=== PATIENT | female | born 1935 | race Caucasian/White ===

== ENCOUNTER 2017-04-03 11:36 | Outpatient (RCR) | payer MEDICARE | END 2017-07-01 | disposition home or self-care (01) | LOC: LAB 11:36 | PROVIDERS: ATTEND Internal Medicine Gastroenterology | DX: K52.9 Noninfective gastroenteritis and colitis, unspecified (principal) | CPT/HCPCS: 36415; 82705; 87045; 87046; 87324; 87449; 89055 ==

== ENCOUNTER → 2019-06-25 | Outpatient (CLI) | payer MEDICARE ==
[~2019-06-25] MED LIST: CATHETER FLUSH 10 ML SYR IV PRN
--- NOTE | 2019-06-25 10:57 | Diagnostic Imaging Report ---
Indication: Chronic diarrhea Hepatobiliary scan 5.44 mCi of technetium 99m Choletec was given intravenously. 8 ounces of ensure was given orally 1 hour into the exam. There is homogeneous uptake of isotope throughout the liver. The cystic duct and common duct are both patent. Ejection fraction is calculated to be 58%. IMPRESSION: Normal hepatobiliary scan and gallbladder ejection. Dictated by: Dictated on workstation # [id number]
== END ==
LOC: CARD 08:11
PROVIDERS: ATTEND Family Medicine
DX: K52.9 Noninfective gastroenteritis and colitis, unspecified (principal)
CPT/HCPCS: 78227

== ENCOUNTER → 2020-07-14 | Outpatient (CLI) | payer MEDICAID, MEDICARE ==
--- NOTE | 2020-07-14 13:53 | Diagnostic Imaging Report ---
PROCEDURE: US carotid duplex, bilateral. TECHNIQUE: Multiple real-time grayscale images were obtained over the carotid arteries in various projections, bilaterally. Additional spectral analysis and color Doppler duplex images were also obtained. INDICATION: Carotid stenosis. FINDINGS: There is moderate calcified plaque in the carotid bulbs and bifurcations extending into the proximal internal and external carotid arteries. Velocities in the common carotid and internal carotid arteries are normal. There is some velocity elevation in the right external carotid artery reaching 198 cm/s. Both vertebral arteries show antegrade flow. IMPRESSION: Moderate calcified plaque. There is no evidence of a hemodynamically significant stenosis within the common carotid or internal carotid arteries. Parameters based on the consensus panel Schwab-Scale and Doppler ultrasound criteria published March 2003, Radiology, Volume 229. DOPPLER (peak systolic velocity M/S Right Left CCA .43 .72 ICA Proximal .75 1.2 ICA Mid .68 .60 ICA Distal .57 .77 RATIO 1.75 1.60 ECA 1.98 .74 VERT .61 .62 Dictated by: Dictated on workstation # [id number]
== END ==
LOC: RAD 10:14
PROVIDERS: ATTEND Family Medicine
DX: I65.23 Occlusion and stenosis of bilateral carotid arteries (principal)
CPT/HCPCS: 93880

== ENCOUNTER 2021-02-11 11:47 | Emergency (ER) | payer MEDICARE ==
[~2021-02-11] VITALS: Ht 167.7 cm; Wt 65.9 kg
--- NOTE | 2021-02-11 12:02 | ED General ---
General Stated Complaint: STROKE Source of Information: EMS Exam Limitations: No Limitations History of Present Illness Date Seen by Provider: Feb 11, 2021 Time Seen by Provider: 11:56 Initial Comments To ER with reports of stroke. She is brought by EMS. She was at [facility] visiting a friend when she bent over to pick something up at 11 AM and fell face first. She was unable to get up and upon getting up she is now flaccid on the entire right side. Timing/Duration: 1 Hour Allergies and Home Medications Allergies Coded Allergies: ciprofloxacin (Unverified Allergy, Unknown, 01/05/11) ciprofloxacin HCl (Unverified Allergy, Unknown, 01/05/11) Patient Home Medication List Home Medication List Reviewed: Yes Review of Systems Review of Systems Constitutional: see HPI, other (Unable to obtain as she is nonverbal) Physical Exam Vital Signs Vital Signs - First Documented 02/11/21 11:47 Temp 36.0 Pulse 63 Resp 18 B/P (MAP) 203/83 (123) Pulse Ox 95 O2 Delivery Room Air Capillary Refill : Height, Weight, BMI Height: '" Weight: lbs. oz. kg; BMI Method: General Appearance: No Apparent Distress, WD/WN, Thin, Other (Completely flaccid on the right side nonverbal does follow command when I tell her to squeeze my hand with her left hand she does so. When I tell her to move her left leg she does so.) Eyes: Bilateral Eye Normal Inspection, Bilateral Eye PERRL, Bilateral Eye Other (Eyes deviated to the left. The right eye does not blink in conjunction with the left eye) Neck: Full Range of Motion, Normal Inspection Respiratory: No Accessory Muscle Use, No Respiratory Distress Gastrointestinal: Normal Bowel Sounds, Non Tender, Soft Extremity: Normal Capillary Refill, Normal Inspection Neurologic/Psychiatric: Alert Skin: Normal Color, Warm/Dry Progress/Results/Core Measures Suspected Sepsis SIRS Temperature: Pulse: Respiratory Rate: Laboratory Tests 02/11/21 12:03: White Blood Count 7.8 Blood Pressure / Mean: Laboratory Tests 02/11/21 12:03: Creatinine 1.28, Platelet Count 210, Total Bilirubin 0.6 02/11/21 12:41: INR Comment 1.2 Results/Orders Lab Results Laboratory Tests Test 02/11/21 12:03 02/11/21 12:04 02/11/21 12:41 Range/Units White Blood Count 7.8 4.3-11.0 10^3/uL Red Blood Count 3.91 3.80-5.11 10^6/uL Hemoglobin 12.2 11.5-16.0 g/dL Hematocrit 35 35-52 % Mean Corpuscular Volume 90 80-99 fL Mean Corpuscular Hemoglobin 31 25-34 pg Mean Corpuscular Hemoglobin Concent 35 32-36 g/dL Red Cell Distribution Width 12.2 10.0-14.5 % Platelet Count 210 130-400 10^3/uL Mean Platelet Volume 10.6 9.0-12.2 fL Immature Granulocyte % (Auto) 0 % Neutrophils (%) (Auto) 55 42-75 % Lymphocytes (%) (Auto) 33 12-44 % Monocytes (%) (Auto) 9 0-12 % Eosinophils (%) (Auto) 3 0-10 % Basophils (%) (Auto) 0 0-10 % Neutrophils # (Auto) 4.3 1.8-7.8 10^3/uL Lymphocytes # (Auto) 2.6 1.0-4.0 10^3/uL Monocytes # (Auto) 0.7 0.0-1.0 10^3/uL Eosinophils # (Auto) 0.2 0.0-0.3 10^3/uL Basophils # (Auto) 0.0 0.0-0.1 10^3/uL Immature Granulocyte # (Auto) 0.0 0.0-0.1 10^3/uL Urine Color YELLOW Urine Clarity CLOUDY Urine pH 6.0 5-9 Urine Specific [place] 1.025 H 1.016-1.022 Urine Protein NEGATIVE NEGATIVE Urine Glucose (UA) NEGATIVE NEGATIVE Urine Ketones NEGATIVE NEGATIVE Urine Nitrite NEGATIVE NEGATIVE Urine Bilirubin NEGATIVE NEGATIVE Urine Urobilinogen 0.2 < = 1.0 MG/DL Urine Leukocyte Esterase NEGATIVE NEGATIVE Urine RBC (Auto) NEGATIVE NEGATIVE Urine RBC NONE /HPF Urine WBC NONE /HPF Urine Squamous Epithelial Cells RARE /HPF Urine Crystals NONE /LPF Urine Bacteria NEGATIVE /HPF Urine Casts PRESENT /LPF Urine Hyaline Casts 0-2 H /LPF Urine Mucus SMALL H /LPF Urine Culture Indicated NO Sodium Level 136 135-145 MMOL/L Potassium Level 3.7 3.6-5.0 MMOL/L Chloride Level 101 98-107 MMOL/L Carbon Dioxide Level 20 L 21-32 MMOL/L Anion Gap 15 H 5-14 MMOL/L Blood Urea Nitrogen 15 7-18 MG/DL Creatinine 1.28 0.60-1.30 MG/DL Estimat Glomerular Filtration Rate 40 BUN/Creatinine Ratio 12 Glucose Level 123 H 70-105 MG/DL Calcium Level 9.7 8.5-10.1 MG/DL Corrected Calcium 9.9 8.5-10.1 MG/DL Total Bilirubin 0.6 0.1-1.0 MG/DL Aspartate Amino Transf (AST/SGOT) 22 5-34 U/L Alanine Aminotransferase (ALT/SGPT) 13 0-55 U/L Alkaline Phosphatase 43 40-136 U/L Troponin I 0.028 <0.028 NG/ML Total Protein 7.0 6.4-8.2 GM/DL Albumin 3.8 3.2-4.5 GM/DL Glucometer 122 H 70-110 MG/DL Prothrombin Time 15.3 H 12.2-14.7 SEC INR Comment 1.2 0.8-1.4 Activated Partial Thromboplast Time 38 H 24-35 SEC D-Dimer 0.75 H 0.00-0.49 UG/ML My Orders Orders - CELIA XIONG APRN Cbc With Automated Diff (02/11/21 11:53) Protime With Inr (02/11/21 11:53) Partial Thromboplastin Time (02/11/21 11:53) Comprehensive Metabolic Panel (02/11/21 11:53) Fibrin Degradation Products (02/11/21 11:53) Troponin I (02/11/21 11:53) Ua Culture If Indicated (02/11/21 11:53) Chest 1 View, Ap/Pa Only (02/11/21 11:53) Catheter(Urinary) Insert & Ass 03,15 (02/11/21 11:53) Ekg Tracing (02/11/21 11:53) Nothing By Mouth (02/11/21 Lunch) Accucheck Stat ONCE (02/11/21 11:53) Ed Iv/Invasive Line Start (02/11/21 11:53) Ed Iv/Invasive Line Start (02/11/21 11:53) Vital Signs Stroke Patient Q15M (02/11/21 11:53) Ct Head Wo-R/O Stroke (02/11/21 11:53) O2 (02/11/21 11:53) Intake & Output 06,14,22 (02/11/21 11:53) Monitor-Rhythm Ecg Trace Only (02/11/21 11:53) Dysphagia Screening Tool (02/11/21 11:53) Post Thrombolytic Adminstratio (02/11/21 11:53) Lipid Panel (02/12/21 06:00) Ct Angio Head/Neck (02/11/21 11:53) Labetalol Injection (Normodyne Injection (02/11/21 12:30) Tenecteplase (Tnkase) (02/11/21 12:30) Post Thrombolytic Adminstratio (02/11/21 12:29) Lactated Ringers (Lr 1000 Ml Iv Solution (02/11/21 13:00) Iohexol Injection (Omnipaque 350 Mg/Ml 1 (02/11/21 13:30) Received Contrast (Hold Metformin- Contr (02/11/21 13:30) Sodium Chloride Flush (Catheter Flush Sy (02/11/21 13:30) Ns (Ivpb) (Sodium Chloride 0.9% Ivpb Bag (02/11/21 13:30) Medications Given in ED Current Medications Medications Dose Ordered Sig/Dennys Route Start Time Stop Time Status Last Admin Dose Admin Iohexol 100 ml ONCE ONCE IV 02/11/21 13:30 02/11/21 13:31 DC 02/11/21 13:21 85 ML Sodium Chloride 10 ml NEEDED PRN IV 02/11/21 13:30 02/11/21 13:21 10 ML Sodium Chloride 100 ml ONCE ONCE IV 02/11/21 13:30 02/11/21 13:31 DC 02/11/21 13:21 80 ML Tenecteplase STROKE 0.25mg/kg MAX d... ONCE ONCE IV 02/11/21 12:30 02/11/21 12:31 DC 02/11/21 12:47 50 MG Vital Signs/I&O 02/11/21 02/11/21 02/11/21 02/11/21 11:47 12:44 12:47 13:31 Temp 36.0 Pulse 63 57 57 63 Resp 18 18 18 B/P (MAP) 203/83 (123) 163/66 156/66 176/66 Pulse Ox 95 95 95 O2 Delivery Room Air Room Air Room Air Capillary Refill : Diagnostic Imaging Diagonstic Imaging: CT Comments NAME: [facility] REC#: [id number] PT STATUS: REG ER : 1935 PHYSICIAN: CELIA XIONG APRN ADMIT DATE: 02/11/21/ER Signed Date of Exam:02/11/21 CT HEAD WO-R/O STROKE EXAMINATION: CT head without contrast. TECHNIQUE: Multiple contiguous axial images were obtained through the brain without the use of intravenous contrast. All CT scans use one or more of the following dose optimizing techniques: automated exposure control, MA and/or KvP adjustment based on patient size and exam type or iterative reconstruction. HISTORY: Strokelike symptoms. Right-sided weakness. COMPARISON: 08/22/2011. FINDINGS: No large acute territorial ischemia, mass, or hemorrhage. No midline shift or mass effect. Decreased attenuation is seen in the periventricular and subcortical white matter. The ventricles and cortical sulci are prominent. The basilar cisterns are patent and unremarkable. The orbits are normal. Paranasal sinuses are normal. Mastoid air cells are clear. No soft tissue abnormality is seen. No osseus lesions or fractures are seen. IMPRESSION: 1. No large acute territorial ischemia, mass, or hemorrhage. If continued concern, consider MRI brain to further evaluate. 2. Chronic microvascular disease. 3. Generalized parenchymal volume loss. Dictated by: Dictated on workstation # [id number] Dict: 02/11/21 1208 Trans: 02/11/21 1218 [facility] [id number] Interpreted by: COLE MIRANDA DO Electronically signed by: COLE MIRANDA DO 02/11/21 1218 Departure Communication (Admissions) NAME: MARICARMEN [facility] REC#: [id number] PT STATUS: REG ER : 1935 PHYSICIAN: CELIA XIONG APRN ADMIT DATE: 02/11/21/ER Signed Date of Exam:02/11/21 CT HEAD WO-R/O STROKE EXAMINATION: CT head without contrast. TECHNIQUE: Multiple contiguous axial images were obtained through the brain without the use of intravenous contrast. All CT scans use one or more of the following dose optimizing techniques: automated exposure control, MA and/or KvP adjustment based on patient size and exam type or iterative reconstruction. HISTORY: Strokelike symptoms. Right-sided weakness. COMPARISON: 08/22/2011. FINDINGS: No large acute territorial ischemia, mass, or hemorrhage. No midline shift or mass effect. Decreased attenuation is seen in the periventricular and subcortical white matter. The ventricles and cortical sulci are prominent. The basilar cisterns are patent and unremarkable. The orbits are normal. Paranasal sinuses are normal. Mastoid air cells are clear. No soft tissue abnormality is seen. No osseus lesions or fractures are seen. IMPRESSION: 1. No large acute territorial ischemia, mass, or hemorrhage. If continued concern, consider MRI brain to further evaluate. 2. Chronic microvascular disease. 3. Generalized parenchymal volume loss. Dictated by: Dictated on workstation # [id number] Dict: 02/11/21 1208 Trans: 02/11/21 1218 [facility] [id number] Interpreted by: COLE MIRANDA DO Electronically signed by: COLE MIRANDA DO 02/11/21 1218 Family Conversation NAME: MARICARMEN [facility] REC#: [id number] PT STATUS: REG ER : 1935 PHYSICIAN: CELIA XIONG APRN ADMIT DATE: 02/11/21/ER Draft Date of Exam:02/11/21 CT ANGIO HEAD/NECK PROCEDURE: CT angiography of the head and CT angiography of the neck with and without contrast. TECHNIQUE: Contiguous noncontrast images were obtained from the skull base through the vertex. After intravenous contrast administration, helical CT angiography of the neck was performed. Source data was reformatted into 3D MIP projections. Delayed post contrast acquisition was also obtained. Auto Exposure Controls were utilized during the CT exam to meet ALARA standards for radiation dose reduction. INDICATION: Stroke alert. Right-sided weakness. COMPARISON: CT head performed earlier this same date. FINDINGS: CTA Neck: The visualized portions of the aortic arch demonstrate atherosclerotic plaque without evidence of aneurysm or dissection. There is conventional branching pattern of the great vessels of the aorta. The brachiocephalic artery is normal in course and caliber. The right and left common carotid origins are unremarkable. The origin of the left subclavian artery is patent. The common carotid arteries and internal carotid arteries demonstrate a tortuous course. There is calcified atherosclerotic plaque in the bilateral carotid bulbs and proximal internal carotid arteries without flow-limiting stenosis. No evidence of dissection in the carotid systems. The external carotid arteries are patent and unremarkable. The vertebral arteries are codominant. The origin of the right vertebral artery is seen and is unremarkable. The origin of the left vertebral artery is seen and is unremarkable. There is no focal stenosis seen within the neck. There is no dissection. The vertebral arteries are well visualized to up to the level of the basilar artery. The osseous structures of the cervical spine are unremarkable. Included views through the lung apices demonstrate no focal consolidation. CTA brain: Atherosclerotic plaque is seen in the sheppard of the bilateral terminal internal carotid arteries without significant stenosis. There is occlusion of a branch of the left MCA prior to the sylvian fissure (image 382, series 2). No stenosis is seen in the bilateral anterior and posterior cerebral arteries and right MCA. No evidence of aneurysm the [place]. In the posterior circulation, both of the vertebral arteries demonstrate normal opacification. The vertebral arteries are codominant. Both the right and left PICA arteries are identified. The basilar artery is normal in course and caliber. The terminal branch vessels including the superior cerebellar arteries unremarkable. IMPRESSION: 1. 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 2. The remainder the [place] is patent. 3. No stenosis or dissection the bilateral carotid and vertebral arteries. Findings were called to Celia Xiong APRN, at 1:30 PM on 02/11/[address] Cole Miranda. Dictated on workstation # [id number] Dict: 02/11/21 1323 Trans: 02/11/21 1337 [facility] [id number] Interpreted by: COLE MIRANDA DO Electronically signed by: [id number]-blood pressure is down to 158/66 without intervention heart rate 52 sinus. Respiratory rate is 21 and O2 96%. I spoke with Dr. Solares from [facility] who agrees with initiating TPA, will give tenecteplase 0.25 mg/kg which equals 16 mg or 3.2 mL. We will proceed with CT angio head and neck. Patient's clinical exam remains unchanged. I did notify her son-in-law Kal Gonzalez ([phone]) who is [employer] here, currently he is in [place] and will await update. 1346-spoke with Dr. Solares again, this occlusion may be amenable to IR guided retrieval. Will fly the patient to [facility]. Cora to arrive here at 1415 for transport. 1405*-NIH down to 9. SHe answers and speaks yes or no questions. Impression Primary Impression: Large vessel stroke Disposition: XFER SHT-TRM HOSP Condition: Stable Transfer Transfer Reason: Exceeds level of care Time Spoke to Accepting Phy: 13:51 Departure-Patient Inst. Referrals: JAH MORGAN MD (PCP/Family) Primary Care Physician NIH Stroke Scale NIH Stroke Scale NIH #1: Select: Initial Level of Consciousness: 0=Alert Level of Consciousness-Questio: 2=Answer neither question LOC Commands: 0=Performs both tasks Gaze: 2=Forced Deviation Best Language: 3=Mute Dysarthria: 2=Severe dysarthria Extinction & Inattention: 2=ProfoundHemiInattention NIH Stroke Scale Score: 22 NIH #2: Select: Post CT Level of Consciousness: 0=Alert Level of Consciousness-Questio: 0=Answers both month/age LOC Commands: 0=Performs both tasks Gaze: 0=Normal Visual Ramos: 0=No visual loss Facial Movement (Facial Paresi: 0=Normal symmetrical mnt Motor Function-Arms Right: 2=Some effort/gravity Motor Function-Arms Left: 0=No drift Motor Function-Legs Right: 2=Some effort/gravity Motor Function-Legs Left: 0=No drift Limb Ataxia: 2=Present in two limbs Sensory: 1=Mild to Moderate loss Best Language: 1=Mild to moderat aphasia Dysarthria: 1=Mild to moderate loss Extinction & Inattention: 0=No abnormality NIH Stroke Scale Score: 9 CELIA XIONG APRN Feb 11, 2021 12:02
--- NOTE | 2021-02-11 12:17 | Diagnostic Imaging Report ---
EXAMINATION: Chest 1 view HISTORY: Weakness. Concern for stroke. COMPARISON: None available. FINDINGS: The lung volumes are normal. No focal consolidation is seen. No large pleural effusion or pneumothorax is seen. The cardiomediastinal silhouette is normal in size and contour. There is calcified aortic atherosclerotic plaque. No acute osseous abnormality is seen. IMPRESSION: 1. No acute pleuroparenchymal process. Dictated by: Dictated on workstation # [id number]
--- NOTE | 2021-02-11 12:17 | Diagnostic Imaging Report ---
EXAMINATION: CT head without contrast. TECHNIQUE: Multiple contiguous axial images were obtained through the brain without the use of intravenous contrast. All CT scans use one or more of the following dose optimizing techniques: automated exposure control, MA and/or KvP adjustment based on patient size and exam type or iterative reconstruction. HISTORY: Strokelike symptoms. Right-sided weakness. COMPARISON: 08/22/2011. FINDINGS: No large acute territorial ischemia, mass, or hemorrhage. No midline shift or mass effect. Decreased attenuation is seen in the periventricular and subcortical white matter. The ventricles and cortical sulci are prominent. The basilar cisterns are patent and unremarkable. The orbits are normal. Paranasal sinuses are normal. Mastoid air cells are clear. No soft tissue abnormality is seen. No osseus lesions or fractures are seen. IMPRESSION: 1. No large acute territorial ischemia, mass, or hemorrhage. If continued concern, consider MRI brain to further evaluate. 2. Chronic microvascular disease. 3. Generalized parenchymal volume loss. Dictated by: Dictated on workstation # [id number]
[2021-02-11 12:25] LABS: BASOPHILS % (AUTO) 0 % (0-10); EOSINOPHILS # (AUTO) 0.2 10^3/uL (0.0-0.3); EOSINOPHILS % (AUTO) 3 % (0-10); HEMATOCRIT 35 % (35-52); HEMOGLOBIN 12.2 g/dL (11.5-16.0); LYMPHOCYTES # (AUTO) 2.6 10^3/uL (1.0-4.0); LYMPHOCYTES % (AUTO) 33 % (12-44); MEAN CORPUSCULAR HEMOGLOBIN 31 pg (25-34); MEAN CORPUSCULAR HGB CONC 35 g/dL (32-36); MEAN CORPUSCULAR VOLUME 90 fL (80-99); MEAN PLATELET VOLUME 10.6 fL (9.0-12.2); MONOCYTES # (AUTO) 0.7 10^3/uL (0.0-1.0); MONOCYTES % (AUTO) 9 % (0-12); NEUTROPHILS # (AUTO) 4.3 10^3/uL (1.8-7.8); NEUTROPHILS % (AUTO) 55 % (42-75); PLATELET COUNT 210 10^3/uL (130-400); WHITE BLOOD COUNT 7.8 10^3/uL (4.3-11.0)
[2021-02-11 12:26] LABS: BILIRUBIN,URINE NEGATIVE (NEGATIVE); CLARITY,URINE CLOUDY; COLOR,URINE YELLOW; GLUCOSE, URINE (UA) NEGATIVE (NEGATIVE); KETONES,URINE NEGATIVE (NEGATIVE); LEUKOCYTE ESTERASE ,URINE NEGATIVE (NEGATIVE); NITRITE,URINE NEGATIVE (NEGATIVE); PROTEIN,URINE NEGATIVE (NEGATIVE)
[2021-02-11] MEDS ORDERED: LABETALOL HCL 20 MG/4 ML VIAL IV ONE (12:30)
[2021-02-11] MEDS ORDERED: TENECTEPLASE 50 MG VIAL IV ONE (12:30)
[2021-02-11 12:33] LABS: BACTERIA,URINE NEGATIVE /HPF; HYALINE CASTS, URINE 0-2 /LPF; SQUAMOUS EPITHELIAL CELL,UR RARE /HPF
[2021-02-11 12:40] LABS: ALBUMIN 3.8 GM/DL (3.2-4.5)
[2021-02-11 12:41] LABS: POTASSIUM 3.7 MMOL/L (3.6-5.0)
[2021-02-11 12:42] LABS: CALCIUM 9.7 MG/DL (8.5-10.1)
[2021-02-11 12:45] LABS: BILIRUBIN,TOTAL 0.6 MG/DL (0.1-1.0)
[2021-02-11 12:46] LABS: CREATININE SERUM 1.28 MG/DL (0.60-1.30)
[2021-02-11] MEDS ORDERED: LACTATED RINGERS 1,000 ML IV SCH (13:00)
[2021-02-11 13:08] LABS: FIBRIN DEGRADATION PRODUCTS 0.75 UG/ML (0.00-0.49); INR 1.2 (0.8-1.4); PROTHROMBIN TIME PATIENT 15.3 SEC (12.2-14.7)
[2021-02-11] MEDS ORDERED: HOLD METFORMIN - RECEIVED CONTRAST 20 ML VIAL IV SCH (13:30)
[2021-02-11] MEDS ORDERED: NS 100 ML (IVPB) BAG IV ONE (13:30)
[2021-02-11] MEDS ORDERED: IOHEXOL 350 MG/ML 100 ML (OMNIPAQUE 350) VIAL IV ONE (13:30)
[2021-02-11] MEDS ORDERED: CATHETER FLUSH 10 ML SYR IV PRN (13:30)
--- NOTE | 2021-02-11 13:38 | Diagnostic Imaging Report ---
PROCEDURE: CT angiography of the head and CT angiography of the neck with and without contrast. TECHNIQUE: Contiguous noncontrast images were obtained from the skull base through the vertex. After intravenous contrast administration, helical CT angiography of the neck was performed. Source data was reformatted into 3D MIP projections. Delayed post contrast acquisition was also obtained. Auto Exposure Controls were utilized during the CT exam to meet ALARA standards for radiation dose reduction. INDICATION: Stroke alert. Right-sided weakness. COMPARISON: CT head performed earlier this same date. FINDINGS: CTA Neck: The visualized portions of the aortic arch demonstrate atherosclerotic plaque without evidence of aneurysm or dissection. There is conventional branching pattern of the great vessels of the aorta. The brachiocephalic artery is normal in course and caliber. The right and left common carotid origins are unremarkable. The origin of the left subclavian artery is patent. The common carotid arteries and internal carotid arteries demonstrate a tortuous course. There is calcified atherosclerotic plaque in the bilateral carotid bulbs and proximal internal carotid arteries without flow-limiting stenosis. No evidence of dissection in the carotid systems. The external carotid arteries are patent and unremarkable. The vertebral arteries are codominant. The origin of the right vertebral artery is seen and is unremarkable. The origin of the left vertebral artery is seen and is unremarkable. There is no focal stenosis seen within the neck. There is no dissection. The vertebral arteries are well visualized to up to the level of the basilar artery. The osseous structures of the cervical spine are unremarkable. Included views through the lung apices demonstrate no focal consolidation. CTA brain: Atherosclerotic plaque is seen in the sheppard of the bilateral terminal internal carotid arteries without significant stenosis. There is occlusion of a branch of the left MCA prior to the sylvian fissure (image 382, series 2). No stenosis is seen in the bilateral anterior and posterior cerebral arteries and right MCA. No evidence of aneurysm the [place]. In the posterior circulation, both of the vertebral arteries demonstrate normal opacification. The vertebral arteries are codominant. Both the right and left PICA arteries are identified. The basilar artery is normal in course and caliber. The terminal branch vessels including the superior cerebellar arteries unremarkable. IMPRESSION: 1. 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 2. The remainder the [place] is patent. 3. No stenosis or dissection the bilateral carotid and vertebral arteries. Findings were called to Claude Xiong APRN, at 1:30 PM on 02/11/[address] Cole Miranda. Dictated by: Dictated on workstation # [id number]
[2021-02-11 14:53] VITALS: BP 170/89
== END 2021-02-11 14:53 | disposition short-term general hospital (02) ==
LOC: EDUNIT# 11:47 → ER 11:49
DX: I63.9 Cerebral infarction, unspecified (principal)
CPT/HCPCS: 36415; 51702; 70450; 70496; 70498; 71045; 80053; 81000; 82947; 84484; 85025; 85379; 85610; 85730; 93005; 93041

== ENCOUNTER 2021-02-16 14:15 | Inpatient (IN) | payer MEDICARE ==
[~2021-02-16] VITALS: Ht 171.5 cm; Wt 61.4 kg
[~2021-02-16 14:15] MED LIST changes: +ACETAMINOPHEN 500 MG TAB (TYLENOL) PO PRN; +ALPRAZolam 0.25 MG (XANAX) TAB PO PRN; +ASCO-262 PO; +ASPI-999 PO; +ATOR40TA70 PO; +BENA40TA5 PO; +BISACODYL 10 MG SUPP (DULCOLAX) PR PRN; +CALCIUM CARBONATE 500 MG (TUMS) TAB.CHEW PO PRN; +CARV12.53 PO; -CATHETER FLUSH 10 ML SYR IV PRN; +CHOL100048 PO; +CLOP75TA28 PO; +DOCUSATE SODIUM 100 MG (COLACE) CAP PO PRN; +FLEET ENEMA ADULT 1 EA BTL PR PRN; +HYDR25TA4 PO; +LACTULOSE SYRUP 10GM/15ML (ENULOSE) 30ML UDC PO PRN; +LOPE2CAP PO; +LOPERAMIDE 2 MG (IMODIUM) TABLET PO PRN; +MELA5TAB14 PO; +MELATONIN 3 MG TABLET PO PRN; +MULT-1136 PO; +ONDANSETRON 4 MG (ZOFRAN) ORAL DISSOLVE TAB PO PRN; +POTA-51 PO; +diphenhydrAMINE 25 MG TAB (BENADRYL) PO PRN; +guaiFENesin/CODEINE (ROBITUSSIN AC) 10ML UDC PO PRN
--- NOTE | 2021-02-16 15:10 | Occupational Therapy Eval ---
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 R side weakness and sensory loss. 02/16 transfer to [facility] for continued medication management and skilled therapies. Social History Home: Apartment ([facility]) Current Living Status: Alone Entry Into Home: Level Entry ADL-Prior Level of Function SCALE: Activities may be completed with or without assistive devices. 5-Rarwbbwvry-ngmejew completes the activity by him/herself with no assistance from a helper. 5-Set-up or Clean-up Assistance-helper sets up or cleans up; patient completes activity. [place] assists only prior to or following the activity. 4-Supervision or Touching Assistance-helper provides verbal cues and/or touching/steadying and/or contact guard assistance as patient completes activity. Assistance may be provided throughout the activity or intermittently. 3-Partial/Moderate Assistance-helper does LESS THAN HALF the effort. [place] lifts, holds or supports trunk or limbs, but provides less than half the effort. 2-Substantial/Maximal Assistance-helper does MORE THAN HALF the effort. [place] lifts or holds trunk or limbs and provides more than half the effort. 8-Lnuoftfml-gzqjsb does ALL the effort. Patient does none of the effort to complete the activity. Or, the assistance of 2 or more helpers is required for the patient to complete the activity. If activity was not attempted, code reason: 7-Patient Refused. 9-Not Applicable-not attempted and the patient did not perform the activity before the current illness, exacerbation or injury. 10-Not Attempted due to Environmental Limitations-(lack of equipment, weather restraints, etc.). 88-Not Attempted due to Medical Conditions or Safety Concerns. ADL PLOF Comments Pt reports IND with ADLs and functional mobility at PLOF, no AD/AE. She has a 4WW and cane. Pt and family member indicate they would like to change the tub/shower unit out for a walk in shower, but would need a letter from physician. Self Care: Independent Functional Cognition: Independent DME/Equipment: Tub/Shower DME/Equipment Comments owns 4WW and cane OT Current Status Subjective Pt agreeable to OT evaluation, but states she is tired. Pt denies pain Mental Status/Objective Patient Orientation: Person, Place, Time, Situation Current Glasses/Contacts: Yes Hand Dominance: Right Upper Extremity ROM Grossly WFL, BUE shoulder flexion to approx 120 degrees. Upper Extremity Coordination slightly diminished R hand. Upper Extremity Sensation WFL, pt reports intact light touch sensation BUEs. Upper Extremity Strength LUE grossly 4-/5, RUE grossly 3/5. Gross grasp fairly equal ADL-Treatment Eating (QC): 6 (Per pt report, able to open containers and use utensils to eat.) Oral Hygiene (QC): 7 Shower/Bathe Self (QC): 7 Upper Body Dressing (QC): 7 Lower Body Dressing (QC): 7 On/Off Footwear (QC): 7 Toileting Hygiene (QC): 4 (CGA in stand. Pt able to manage clothing and hygiene.) Other Treatments OT evaluation complete. PT/OT cotreat due to skill of 2 clinicians required which a cardiac rehab nurse could not perform in order to coordinate UE/LEs, decrease fall risk, focus on higher level balance tasks, and due to pt's limitation in strength, activity tolerance, mobility, and transfers. OT focused on UE placement, cues for sequencing and safety and ADLs. PT focused on LE placement, gross overall movements. and transfers/mobility. Pt performed functional transfers/mobility utilizing FWW, in/out car simulation, bed mobility, supine to/from sit, sit to/from stand, uneven surface and step. Please refer to PT notes for QC scores associated with mobility/transfers. Pt taken into therapy gym, sat EOM. Pt participated in standing balloon activity, batting balloon back and forth with OT as PT assisted with balance as needed. Pt completed with R hand and L hand in standing. She took a seated rest break between trials. She then sat EOB and caught/tossed balloon with bilateral UEs to focus on dynamic sitting balance. Pt used FWW to return to her room. Pt completed toileting, states she has some irritable bowel, requesting to stay on toilet. Pt left with pull cord in hand, nursing aware, all needs met. Education OT Patient Education: Correct positioning, Energy conservation, Modified ADL techniques, Progress toward Goal/Update tx plan, Purpose of tx/functional activities, Rehab process Teaching Recipient: Patient Teaching Methods: Discussion Response to Teaching: Verbalize Understanding OT Short Term Goals Short Term Goals Time Frame: Mar 01, 2021 Toileting hygiene: 45 Shower/bathe self: 4 Upper body dressin Lower body dressin Putting on/taking off footwear: 4 OT Maintenance Associate Goals Nursing Home Goals Time Frame: Mar 10, 2021 Eating (QC): 6 Oral Hygiene (QC): 6 Toileting Hygiene (QC): 6 Shower/Bathe Self (QC): 6 Upper Body Dressing (QC): 6 Lower Body Dressing (QC): 6 On/Off Footwear (QC): 6 Additional Goals: 1-Demonstrate ADL Tasks, 2-Verbalize Understanding, 3- ImproveStrength/Bull 1=Demonstrate adherence to instructed precautions during ADL tasks. 2=Patient will verbalize/demonstrate understanding of assistive devices/modifications for ADL. 3=Patient will improve strength/tolerance for activity to enable patient to perform ADL's. OT Education/Plan Problem List/Assessment Assessment: Decreased Activ Tolerance, Decreased UE Strength, Impaired Coordination, Impaired Funct Balance, Impaired I ADL's, Impaired Self-Care Skills Discharge Recommendations Plan/Recommendations: Continue POC Comment Pt and family member indicate they would like to change the tub/shower unit out for a walk in shower, but would need a letter from physician. Treatment Plan/Plan of Care Patient would benefit from OT for education, treatment and training to promote independence in ADL's, mobility, safety and/or upper extremity function for ADL's. Plan of Care: ADL Retraining, Functional Mobility, Group Exercise/Act as Ind, UE Funct Exercise/Act Treatment Duration: Mar 10, 2021 Frequency: At least 5 of 7 days/Wk (IRF) Estimated Hrs Per Day: 1.5 hours per day Agreement: Yes Rehab Potential: Fair Time/GCodes Start Time: 14:15 Stop Time: 15:55 Total Time Billed (hr/min): 90 Billed Treatment Time 7997-5013 OT eval, [id number] PT eval (not billed), [id number] OT/PT cotreat 1, EVM (10'), ADL (15'), FA 4 (65') MAGDIEL GREER OT Feb 16, 2021 15:09
[2021-02-16] MEDS ORDERED: ACETAMINOPHEN 325 MG TABLET PO PRN (15:30)
--- NOTE | 2021-02-16 16:07 | Progress Note ---
EDOUARD EASON 02/16/21 1607: Progress Note CC: Debility post-CVA HPI: 85 yo female with recent CVA presents to the rehab floor after stabilization at . Pt was brought to the [place] ER on 02/11 by EMS. She had been visiting a friend when she bent over to pick something up at 11am and fell face first. She was unable to get up and became flaccid on her entire R side. Pt was given tPA and was airlifted to . assessed the pt and recommended conservative treatment with medication. She now presents to the rehab floor for recuperation and therapy. PT reports dizzy spells while performing exercises. BP was then taken (157/67) which returned to 121/59 with rest. PMH: IBS, HTN PSH: rotator cuff surgery (4 years ago), hysterectomy, 2 deliveries ALL: ciprofloxacin, ciprofloxacin HCl Meds: Item Value Date Time Cholecalciferol 25 mcg 02/17/21 0900 (Vitamin D3 DAILY/PO Capsule/Tablet) Lisinopril 40 mg 02/17/21 0900 (Zestril Tablet) DAILY/PO Hydrochlorothiazide 50 mg 02/17/21 0900 (HCTZ Capsule/ DAILY/PO Tablet) Clopidogrel 75 mg 02/17/21 0900 Bisulfate DAILY/PO (Plavix Tablet) Aspirin 81 mg 02/17/21 0900 (Baby Aspirin DAILY/PO Chewable Tablet) Ascorbic Acid 500 mg 02/17/21 0800 (Vitamin C DAILY@0800/PO Tablet) Potassium Chloride 20 meq 02/17/21 0700 (K Dur Tablet) DAILY@0700/PO Multivitamins/ 1 ea 02/17/21 0700 Minerals DAILY@0700/PO Therapeutic (Vitamins, Multi w/Minerals Tablet) Melatonin 5 mg 02/16/21 2100 (Melatonin HS/PO Tablet) Carvedilol 25 mg 02/16/21 2100 (Coreg Tablet) BID/PO Atorvastatin 40 mg 02/16/21 2100 Calcium HS/PO (Lipitor Tablet) Senna 1 ea 02/16/21 2100 (Senokot S BID/PO Tablet) Polyethylene 17 gm 02/16/21 2100 Glycol BID/PO (Miralax 17 Gm Packet) Docusate Sodium 100 mg 02/16/21 2100 (Colace Capsule) BID/PO Acetaminophen 650 mg 02/16/21 1530 (Tylenol Tablet) Q4H PRN/PO Loperamide HCl 2-4mg 02/16/21 1200 (Imodium Tablet) Q6H PRN/PO Ondansetron HCl 4 mg 02/16/21 1030 (Zofran Oral Q6H PRN/PO Dissolve Tablet) Guaifenesin/ 10 ml 02/16/21 1030 Codeine Phosphate Q4H PRN/PO (Robitussin Ac (Codeine) Syrup) Sodium 1 ea 02/16/21 1030 Biphosphate/ BID PRN/AK Sodium Phosphate (Fleet Enema Adult) Lactulose 10 gm 02/16/21 1030 (Enulose Oral BID PRN/PO Solution) Bisacodyl 10 mg 02/16/21 1030 (Dulcolax DAILY PRN/AK Suppository) Docusate Sodium 100 mg 02/16/21 1030 (Colace Capsule) BID PRN/PO Diphenhydramine 25 mg 02/16/21 1030 HCl Q6H PRN/PO (Benadryl Tablet) Calcium Carbonate 500 mg 02/16/21 1030 (Antacid TID PRN/PO Chewable Tablet) Alprazolam 0.25 mg 02/16/21 1030 (Xanax Tablet) Q8H PRN/PO SH: No EtOH, No tobacco use, no recreational drug use, lives at [facility], lhyovvco-nw-ali very involved, son that lives in [place], son-in-law OBGYN at [facility]: mom- stroke at 58 (refused bp meds), dad- alcoholic cirrhosis (65), daughter from breast cancer at 36 ROS: Heart- no chest pain or palp; Lungs- no SOB; tired; does not feel feverish; Diarrhea (related to IBS) Exam: Heart- RRR, Lungs- CTAB, Post Tibial pulse intact bilat, Cap refill >2 sec, Eyes- EOM intact Images: CT Angio Head/Neck 02/11 Impressions: 1. 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 2. The remainder the [place] is patent. 3. No stenosis or dissection the bilateral carotid and vertebral arteries. Labs: No new labs as of 02/16 at 4:12pm Assessment: Debility following CVA of left MCA Dizziness HTN IBS Plan: PT/OT 1.5 hours/day for 5 days/week Monitor dizziness, assess fall risk Continue Plavix and ASA for anticoag Continue HCTZ, Lisinopril, Carvedilol for BP management Continue Atorvastatin for HLD management Continue medical management of IBS diarrhea as needed Requests form from Dr. Garcia to get a walk-in shower at [facility] NABILA GARCIA DO 02/16/212048: Supervisory-Addendum Brief Verification & Attestation Participated in pt care: history, MDM, physical Personally performed: exam, history, MDM, supervision of care Care discussed with: Medical Student Procedures: n/a Results interpretation: Verified all documentation Verification and Attestation of Medical Student E/M Service A medical student performed and documented this service in my presence. I review ed and verified all information documented by the medical student and made modifications to such information, when appropriate. I personally performed the physical exam and medical decision making. Nabila Garcia Feb 16, 2021,20:49 EDOUARD EASON Feb 16, 2021 16:07 NABILA GARCIA DO Feb 16, 2021 20:49
--- NOTE | 2021-02-16 16:14 | Physical Therapy Evaluation ---
PT Evaluation-General Medical Diagnosis Admission Date Feb 16, 2021 at 14:15 Medical Diagnosis: CVA Onset Date: Feb 11, 2021 Therapy Diagnosis Therapy Diagnosis: impaired mobility, strength, endurance Referral Physician: Nabila Garcia DO Reason for Referral: Evaluation/Treatment Medical History Additional Medical History bilateral carotid stenosis, CKD III, depression, dyslipidemia, HTN, diarrhea, basal cell carcinoma with excision, hypokalemia Social History Home: Apartment ([place] Current Living Status: Alone Entry Into Home: Level Entry Prior Prior Level of Function SCALE: Activities may be completed with or without assistive devices. 5-Slxpbbdsfz-tjogptt completes the activity by him/herself with no assistance from a helper. 5-Set-up or Clean-up Assistance-helper sets up or cleans up; patient completes activity. [place] assists only prior to or following the activity. 4-Supervision or Touching Assistance-helper provides verbal cues and/or touching/steadying and/or contact guard assistance as patient completes activity. Assistance may be provided throughout the activity or intermittently. 3-Partial/Moderate Assistance-helper does LESS THAN HALF the effort. [place] lifts, holds or supports trunk or limbs, but provides less than half the effort. 2-Substantial/Maximal Assistance-helper does MORE THAN HALF the effort. [place] lifts or holds trunk or limbs and provides more than half the effort. 7-Etnesfjlr-dxenfv does ALL the effort. Patient does none of the effort to complete the activity. Or, the assistance of 2 or more helpers is required for the patient to complete the activity. If activity was not attempted, code reason: 7-Patient Refused. 9-Not Applicable-not attempted and the patient did not perform the activity before the current illness, exacerbation or injury. 10-Not Attempted due to Environmental Limitations-(lack of equipment, weather restraints, etc.). 88-Not Attempted due to Medical Conditions or Safety Concerns. Bed Mobility: 6 Transfers (B,C,W/C): 6 Gait: 6 Indoor Mobility (Ambulation): Independent PT Evaluation-Current Subjective Patient in recliner pre tx, agrees to PT, has no complaints of pain. Will be co-treating with OT due to poor patient mobility, strength, endurance, coordinate UE and LE during activity, safety and reduce risk of falls. Pt/Family Goals to be independent at home Objective Patient Orientation: Person, Place, Situation ROM/Strength ROM Lower Extremities WNL Strength Lower Extremities LLE (hip flexion 4/5, knee flexion 4/5, knee extension 4/5, dorsiflexion 4+/5), RLE (hip flexion 3+/5, knee flexion 3/5, knee extension 3+/5, dorsiflexion 4+/5) Neuromuscular (Tone, Coordination, Reflexes) Patient has good peripheral vision and tracking Sensory Vision: Wears Glasses Hearing: Functional Hand Dominance: Right Sensation Right Lower Extremit: Intact Sensation Left Lower Extremity: Intact Transfers Roll Left & Right (QC): 6 Sit to Lying (QC): 6 Lying to Sitting/Side of Bed(Q: 6 Sit to Stand (QC): 4 Chair/Kcq-qj-Egbty Xfer(QC): 4 Toilet Transfer (QC): 4 Car Transfer (QC): 3 Patient performs bed mobility and supine <-> sit with independence, sit <-> stand and transfers CGA, car transfer min assist. Patient has some difficulty with supine to sit but can do it without assist. Cues for hand placement. Gait Does the Patient Walk?: Yes Mode of Locomotion: Walk Anticipated Mode of Locomotion: Walk Walk 10 feet (QC): 4 Walk 50 ft with 2 Turns(QC): 4 Walk 150 ft (QC): 88 Walking 10ft/uneven surface-QC: 4 Distance: 120', 20'x2 Gait Assistive Device: FWW Comments/Gait Description Patient can ambulate 120' with a rolling walker with CGA (including 50' with at least 2 turns of 90 degrees and 10' over an uneven surface). Patient ambulates very slowly and has some slight unsteadiness but no LOB. Wheelchair Training Does the Pt Use a Wheelchair?: Yes Distance: 120' Wheel 50 ft with 2 turns (QC): 4 Wheel 150 ft (QC): 88 Type of Wheelchair: Manual Stairs #of Steps: 1 1 Step (curb) (QC): 4 4 Steps (QC): 88 12 Steps (QC): 88 Walking Assistive Device: Walker Balance Sitting Static: Normal Sitting Dynamic: Normal Standing Static: Fair Standing Dynamic: Fair Picking up an Object (QC): 4 Treatment Balance and endurance activity hitting balloon in sitting and standing. PT performed bed mobility and transfer training, balance and safety during balloon activity, OT performed UE positioning and safety during activity, balloon activity. Assessment/Needs Patient in bed post tx with nurse call, phone, tray, all needs met. Patient has impaired mobility, strength, endurance. Patient CGA for transfers and ambulation. She did have an episode during the balloon activity where she needed to sit and rest and then not long after states she needs to lay down, she lays down on the therapy table, states she is a little nauseated and tired, her BP is 157/67, after a few minutes she sits back up and her BP is 121/59 and she feels better. Rehab Potential: Fair PT Short Term Goals Short Term Goals Time Frame: Feb 23, 2021 Roll Left & Right: 6 Sit to lyin Lying to sitting on side of be: 6 Sit to stand: 4 (SBA) Chair/ysz-to-zmgsn transfer: 4 (SBA) Walk 10 feet: 4 (SBA) Walk 50 feet with two turns: 4 (SBA) PT Halfway Goals Halfway Goals PT Account Representative Goals Time Frame: Mar 09, 2021 Roll Left & Right (QC): 6 Sit to Lying (QC): 6 Lying-Sitting on Side/Bed(QC): 6 Sit to Stand (QC): 6 Chair/Vhv-qk-Htfut Xfer(QC): 6 Toilet Transfer (QC): 6 Car Transfer (QC): 5 Does the Patient Walk: Yes Walk 10 feet (QC): 6 Walk 50ft with 2 Turns (QC): 6 Walk 150 ft (QC): 6 Walking 10ft on Uneven Surface: 6 1 Step (curb) (QC): 4 4 Steps (QC): 4 12 Steps (QC): 88 Picking up an Object (QC): 4 Wheel 50 feet with 2 turns (QC: 9 Wheel 150 feet: 9 PT Plan Problem List Problem List: Activity Tolerance, Functional Strength, Safety, Balance, Gait, Transfer, Bed Mobility, ROM Treatment/Plan Treatment Plan: Continue Plan of Care Treatment Plan: Bed Mobility, Education, Functional Activity Bull, Functional Strength, Group Therapy, Gait, Safety, Therapeutic Exercise, Transfers Treatment Duration: Mar 09, 2021 Frequency: At least 5 of 7 days/Wk (IRF) Estimated Hrs Per Day: 1.5 hours per day Patient and/or Family Agrees t: Yes Safety Risks/Education Patient Education: Gait Training, Transfer Techniques, Steps, Correct Positioning, W/C Management, Safety Issues Teaching Recipient: Patient Teaching Methods: Demonstration, Discussion Response to Teaching: Reinforcement Needed Discharge Recommendations Plan Patient will perform bed mobility and transfer training, balance and endurance training, functional strengthening, stair training, gait training, and education, to improve functional mobility and independence at home Therapy Discharge Recommendati: Scheduled Assistance, Home & Family, Post Acute PT Time/GCodes Time In: 1425 Time Out: 1555 Total Billed Treatment Time: 90 Total Billed Treatment 1 visit EVM 10' EX 15' FA 65' PT eval from [id number], co-treat from [id number] CHARLY MCKEON PT Feb 16, 2021 16:14
[2021-02-16 20:00] VITALS: BP 144/67
[2021-02-16] MEDS: polyethylene glycoL POWDER 17 GM (MIRALAX) PACK PO SCH (20:02)
[2021-02-16] MEDS: DOCUSATE SODIUM 100 MG (COLACE) CAP PO SCH (20:02)
[2021-02-16] MEDS: SENNA W/DOCUSATE (SENOKOT S) TABLET PO SCH (20:03)
--- NOTE | 2021-02-16 20:23 | PM&R Post Admission Assessment ---
PM&R HP Date of Visit: Feb 16, 2021 Time of Visit: 18:00 History of Present Illness Chief complaint: CVA History of present illness: This is an 85-year-old white female clinic patient of Dr. Little who has a past medical history of irritable bowel syndrome, hypertension, hyperlipidemia and chronic kidney disease who presents to inpatient rehab from after sustaining a CVA. She sustained a fall at home brought to the ER found to have large vessel thrombus causing CVA and she was flown to after given TPA. MRI showed left acute infarct of the internal capsule. She has deficits of right side especially upper extremity. She will receive aggressive therapy in order to return back home at [facility] in order to regain independent function. Neuro note: Ms. Fried today is stable, foot numbness is resolved. Exam: alert and oriented, normal speech. Gaze intact, visual graves intact. Face symmetrical. RUE 4+/5, RLE 5-/5, L side intact. Intact to touch. No dysmetria. CTA neck with L ICA 60% stenosis however diagnostic angiogram showing only pl aque with no significant stenosis MRI brain with small acute infarct in L external and internal capsule LDL 118, A1c 5.9, TTE EF 75%, no shunt/thrombus Etiology of stroke possibly large vessel disease however without significant stenosis on L ICA per formal angiogram; can also consider ESUS as etiology. Although stroke size small on MRI, there was previously a L M2 occlusion that was recanalized post IV tPA. - continue ASA/Plavix X 90 days then ASA alone, Lipitor - continue Coreg, HCTZ increase today, Lisinopril for BP control - appreciate NSGY and neuroIR consults; no intervention needed - Holter monitor as outpt - Loperamide prn diarrhea, chronic - d/c to inpt rehab today Luis Alberto Gómez MD Theresa Fried Admission Date: 02/11/2021 LOS: 5 days Assessment/Plan: Principal Problem: Acute ischemic left MCA stroke (HCC) Active Problems: Essential hypertension Dyslipidemia Carotid stenosis, bilateral CKD (chronic kidney disease), stage III (HCC) Hypokalemia Hyponatremia Facial droop Right hemiparesis (HCC) Tissue plasminogen activator (tPA) administered at other facility within 24 hours before current admission Anemia Ms Fried is a 85F with a PMH of HTN, HLD, IBS, CKDIII, and depression who was admitted from an OSH with L M2 occlusion s/p tenecteplase. She was monitored in the ICU and transferred to the stroke team on 02/12/21. L M2 occlusion s/p IV tenecteplase with recanalization -Acute of R hemiparesis, aphasia at OSH -s/p IV tenecteplase -NIHSS on arrival 6 -CT H 02/11/21 -> negative for acute process -CTA H/N @ OSH 02/11/21 -> L M2 occlusion -CTA H/N 02/11/21 -> recanalization of L M2, calcified athero at prox ICA bilaterally with L ICA stenosis of approx 60%, mild to mod luminal irregularity at L M2 -MRI brain WO 02/11/21 -> small acute infarcts at posterior L internal and external capsules, chronic lacunar infarct at R genu of corpus callosum -Arteriogram 02/14 -> mod athero at L carotid bifurcation without significant stenosis, mod plaque at R carotid bifurcation without significant stenosis, R external carotid stenosis of 77% -Echo 02/13/21 -> LVEF75%, no evidence of shunt, PAP 60 -LDL -> 118 -A1C -> 5.9 -Etiology -> ESUS PLAN >No indication for CEA or carotid stenting after angiogram - NSG signed off >DAPT x 90 days with ASA monotherapy thereafter >Atorvastatin 40mg qday >Telemetry while admitted >30 day event monitor at discharge >PTOT/rehab HTN HLD >Cont coreg 25mg BID and lisinopril to 40mg qday (on bellhop service captain benazapril 40mg qday) >Inc HCTZ to 50mg qday >Cont atorvastatin 80mg qday CKDIII >Monitor BMP IBS >Cont bellhop service captain loperamide FEN: cardiac diet, replace lytes prn, no IVF DVT Ppx: heparin Code: Full Dispo: DC to inpatient rehab on 02/16 Patient seen and discussed with Dr Rico Duarte MD Neurology, PGY-4 Past Grppzcz-Qgeabz-Zrxlns Hx Past Med/Social Hx: Reviewed Nursing Past Med/Soc Hx, Reviewed and Corrections made Patient Social History Marrital Status: single 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) Alcohol Use: Denies Use Smoking Status: Never a Smoker Immunizations Up To Date Date of Influenza Vaccine: Jan 26, 2021 Past Medical History Cardiac: High Cholesterol, Hypertension Neurological: Stroke Genitourinary: Renal Failure Gastrointestinal: Irritable Bowel Musculoskeletal: Arthritis Prior Level of Function Bed Mobility: 6 Transfers: 6 Gait: 6 Indoor Mobility (Ambulation): Independent Self Care: Independent Functional Cognition: Independent Current Level of Fuctioning Roll Left to Right: 6 Sit to Lyin Lying to Sitting/Side of Bed: 6 Sit to Stand: 4 Chair/Lxs-no-Oqytq Xfer: 4 Car Transfer: 3 Does the Patient Walk: Yes Mode of Locomotion: Walk Anticipated Mode of Locomotion: Walk Walk 10 feet: 4 Walk 50 ft with 2 Turns: 4 Walk 150 ft: 88 Walking 10ft on uneven surface: 4 Gait Assistive Device: FWW Does the Pt Use a Wheelchair: Yes Wheelchair Distance: 120' Wheel 50 ft with 2 turns: 4 Wheel 150 ft: 88 Type of Wheelchair: Manual #of Steps: 1 1 Step (curb): 4 4 Steps: 88 Walking Assistive Device: Walker 12 Steps: 88 Picking up an Object: 4 Eatin (Per pt report, able to open containers and use utensils to eat.) Oral Hygiene: 7 Shower/Bathe Self: 7 Upper Body Dressin Lower Body Dressin On/Off Footwear: 7 Toileting Hygiene: 4 (CGA in stand. Pt able to manage clothing and hygiene.) PM&R Allergy/Meds/Data Review Allergies Coded Allergies: ciprofloxacin (Unverified Allergy, Unknown, 01/05/11) ciprofloxacin HCl (Unverified Allergy, Unknown, 01/05/11) Home Medications Scheduled Ascorbate Calcium (Vitamin C), 500 MG PO DAILY, (Reported) Aspirin (Aspirin), 81 MG PO DAILY, (Reported) Atorvastatin Calcium (Atorvastatin Calcium), 40 MG PO HS, (Reported) Benazepril HCl (Benazepril HCl), 40 MG PO DAILY, (Reported) Carvedilol (Carvedilol), 25 MG PO BID, (Reported) Cholecalciferol (Vitamin D3) (Vitamin D3), 25 MCG PO DAILY, (Reported) Clopidogrel Bisulfate (Clopidogrel), 75 MG PO DAILY, (Reported) Hydrochlorothiazide (Hydrochlorothiazide), 50 MG PO DAILY, (Reported) Melatonin (Melatonin), 5 MG PO HS, (Reported) Multivitamin (Multivitamin), 1 EACH PO DAILY, (Reported) Potassium Chloride (Potassium Chloride), 20 MEQ PO DAILY, (Reported) Scheduled PRN Loperamide HCl (Loperamide), 2-4 MG PO Q6H PRN for LOOSE STOOLS, (Reported) Current Medications Current Medications Reviewed Review of Systems Constitutional: see HPI, malaise, weakness EENTM: no symptoms reported Respiratory: no symptoms reported Cardiovascular: no symptoms reported Gastrointestinal: constipation Genitourinary: no symptoms reported Musculoskeletal: back pain Skin: no symptoms reported Psychiatric/Neurological: Weakness All Other Systems Reviewed Negative Unless Noted: Yes Physical Exam Physical Exam Vital Signs Vital Signs - First Documented 02/16/21 18:44 O2 Delivery Room Air Capillary Refill : Height, Weight, BMI Height: '" Weight: lbs. oz. kg; 46.44 BMI Method: General Appearance: No Apparent Distress, WD/WN, Chronically ill Eyes: Bilateral Eye Normal Inspection, Bilateral Eye PERRL HEENT: PERRL/EOMI, Normal ENT Inspection, Pharynx Normal Neck: Full Range of Motion, Normal Inspection, Non Tender, Supple, Carotid Bruit Respiratory: Chest Non Tender, Lungs Clear, Normal Breath Sounds, No Accessory Muscle Use, No Respiratory Distress Cardiovascular: Regular Rate, Rhythm, No Edema, No Gallop, No JVD, No Murmur, Normal Peripheral Pulses Gastrointestinal: Normal Bowel Sounds, No Organomegaly, No Pulsatile Mass, Non Tender, Soft Back: Normal Inspection, No CVA Tenderness, No Vertebral Tenderness Extremity: Normal Capillary Refill, Normal Inspection, Normal Range of Motion, Non Tender, No Calf Tenderness, No Pedal Edema Neurologic/Psychiatric: Alert, Oriented x3, Normal Mood/Affect, counselor [employer] II-XII Norm as Tested, Abnormal Gait, Motor Weakness (Right upper extremity weakness 3/5) Skin: Normal Color, Warm/Dry Lymphatic: No Adenopathy PM&R Medical Assessment & Plan REHAB/MEDICAL ASSESSMENT AND PLAN: REHAB IMPAIRMENT GROUP: CVA ETIOLOGIC DIAGNOSIS: CVA The comorbidities that impact the patients function and/or functional outcome by: Lives alone, IBS, hypertension, chronic kidney disease REHAB PLAN: The patient is being admitted to our comprehensive inpatient rehabilitation facility and can tolerate the intensity of service consisting of at least: 180 minutes of therapy a day, 5 out of 7 days a week Rehab treatment will consist of: PT and OT will focus on regaining ambulatory skills along with regaining independent ADLs in order to return back to independent living The patient/family has a good understanding of our discharge process and will benefit from an interdisciplinary inpatient rehabilitation program. The patient has potential to make improvement and is in need of at least two of the following multidisciplinary therapies including but not limited to physical, occupational, speech, and prosthetics and orthotics. Additionally the patient will need services from respiratory, nutritional services, wound care, psychology, etc. (Customize this to each patient). Given the patients complex condition and risk of further medical complications, rehabilitation services cannot be safely or effectively provided at a lower level of care such as a [facility]. BARRIERS TO DISCHARGE: Lives alone ESTIMATED LOS: 10 days DISPOSITION: Home RELEVANT CHANGES SINCE PREADMISSION SCREENING: I have compared the patients medical and functional status at the time of the preadmission screening and there are: No changes PROGNOSIS: Good REHABILITATION GOALS: 1. PT and OT will focus on regaining ambulatory skills along with regaining independent ADLs in order to return back to independent living All the above goals were reviewed with the patient and he/she is in agreement. By signing this document, I acknowledge that I have personally performed a full physical examination on this patient within 24 hours of admission to this inpatient rehabilitation facility and have determined the patient to be able to tolerate the above course of treatment at an intensive level for a reasonable period of time. I will be completing a detailed individualized Plan of Care for this patient by day #4 of the patients stay based upon the Preadmission Screen, the Post-Admission Evaluation, and the therapy evaluations. Admission Dx/Comorbidities: (1) CVA (cerebral vascular accident) ICD Codes: I63.9 - Cerebral infarction, unspecified (2) Chronic kidney disease ICD Codes: N18.9 - Chronic kidney disease, unspecified (3) Hypertension ICD Codes: I10 - Essential (primary) hypertension (4) Hyperlipidemia ICD Codes: E78.5 - Hyperlipidemia, unspecified (5) IBS (irritable bowel syndrome) ICD Codes: K58.9 - Irritable bowel syndrome without diarrhea Assessment/Plan Assessment and Plan Assess & Plan/Chief Complaint SeeAssessment: VA with right-sided weakness Hypertension Hyperlipidemia Chronic kidney disease IBS Plan: Rehab protocol Aggressive therapy Home meds Metamucil at night LAZ DIALLO DO Feb 16, 2021 20:23
[2021-02-16] MEDS ORDERED: NON-FORMULARY MEDICATION 1 EA EA (Melatonin 5 MG) PO SCH (21:00)
[2021-02-16] MEDS: PSYLLIUM POWDER (METAMUCIL) 5.8 GM PACKET PO SCH (21:26)
[2021-02-16] MEDS: MELATONIN 10 MG TABLET PO SCH (21:26)
[2021-02-17 06:05] LABS: BASOPHILS % (AUTO) 0 % (0-10); EOSINOPHILS # (AUTO) 0.2 10^3/uL (0.0-0.3); EOSINOPHILS % (AUTO) 2 % (0-10); HEMATOCRIT 32 % (35-52); HEMOGLOBIN 10.7 g/dL (11.5-16.0); LYMPHOCYTES # (AUTO) 1.7 10^3/uL (1.0-4.0); LYMPHOCYTES % (AUTO) 17 % (12-44); MEAN CORPUSCULAR HEMOGLOBIN 31 pg (25-34); MEAN CORPUSCULAR HGB CONC 34 g/dL (32-36); MEAN CORPUSCULAR VOLUME 91 fL (80-99); MEAN PLATELET VOLUME 10.6 fL (9.0-12.2); MONOCYTES # (AUTO) 0.5 10^3/uL (0.0-1.0); MONOCYTES % (AUTO) 5 % (0-12); NEUTROPHILS # (AUTO) 7.5 10^3/uL (1.8-7.8); NEUTROPHILS % (AUTO) 76 % (42-75); PLATELET COUNT 185 10^3/uL (130-400); WHITE BLOOD COUNT 9.9 10^3/uL (4.3-11.0)
[2021-02-17] MEDS: KCL 20 MEQ TAB (K-DUR) PO SCH (06:24)
[2021-02-17] MEDS: MULTIVIT W/MINERALS TAB (THERAGRAN M) PO SCH (06:24)
[2021-02-17 06:26] LABS: ALBUMIN 3.2 GM/DL (3.2-4.5); BILIRUBIN,TOTAL 0.7 MG/DL (0.1-1.0); CALCIUM 8.9 MG/DL (8.5-10.1); CREATININE SERUM 0.87 MG/DL (0.60-1.30); POTASSIUM 3.8 MMOL/L (3.6-5.0); TOTAL PROTEIN 6.2 GM/DL (6.4-8.2)
[2021-02-17 08:00] VITALS: BP 160/67
[2021-02-17] MEDS: DOCUSATE SODIUM 100 MG (COLACE) CAP PO SCH ×2 (09:00→21:30)
[2021-02-17] MEDS: polyethylene glycoL POWDER 17 GM (MIRALAX) PACK PO SCH ×2 (09:00→21:30)
[2021-02-17] MEDS ORDERED: NON-FORMULARY MEDICATION 1 EA EA (Potassium Chloride 20 MEQ) PO SCH (09:00)
[2021-02-17] MEDS ORDERED: NON-FORMULARY MEDICATION 1 EA EA (Cholecalciferol (Vitamin D3) (Vitamin D3) 25 MCG) PO SCH (09:00)
[2021-02-17] MEDS ORDERED: NON-FORMULARY MEDICATION 1 EA EA (Benazepril HCl 40 MG) PO SCH (09:00)
[2021-02-17] MEDS ORDERED: NON-FORMULARY MEDICATION 1 EA EA (Multivitamin 1 EACH) PO SCH (09:00)
[2021-02-17] MEDS: SENNA W/DOCUSATE (SENOKOT S) TABLET PO SCH ×2 (09:00→21:30)
[2021-02-17] MEDS ORDERED: NON-FORMULARY MEDICATION 1 EA EA (Ascorbate Calcium (Vitamin C) 500 MG) PO SCH (09:00)
--- NOTE | 2021-02-17 09:01 | Occupational Ther Daily Note ---
OT Current Status-Daily Note Subjective Pt was seated in chair upon OT arrival. Pt stated she wanted to get ready for the day and would love a shower. Pt agreed to OT tx session. Mental Status/Objective Patient Orientation: Person, Place, Time, Situation ADL-Treatment Therapy Code Descriptions/Definitions Functional [place] Measure: 0=Not Assessed/NA 4=Minimal Assistance 1=Total Assistance 5=Supervision or Setup 2=Maximal Assistance 6=Modified [place] 3=Moderate Assistance 7=Complete IndependenceSCALE: Activities may be completed with or without assistive devices. 6-Ihiqxbbllf-xdyuidj completes the activity by him/herself with no assistance from a helper. 5-Set-up or Clean-up Assistance-helper sets up or cleans up; patient completes activity. [place] assists only prior to or following the activity. 4-Supervision or Touching Assistance-helper provides verbal cues and/or touching/steadying and/or contact guard assistance as patient completes acti vity. Assistance may be provided throughout the activity or intermittently. 3-Partial/Moderate Assistance-helper does LESS THAN HALF the effort. [place] lifts, holds or supports trunk or limbs, but provides less than half the effort. 2-Substantial/Maximal Assistance-helper does MORE THAN HALF the effort. [place] lifts or holds trunk or limbs and provides more than half the effort. 1-Cfopffvzz-izsyrd does ALL the effort. Patient does none of the effort to complete the activity. Or, the assistance of 2 or more helpers is required for the patient to complete the activity. If activity was not attempted, code reason: 7-Patient Refused. 9-Not Applicable-not attempted and the patient did not perform the activity before the current illness, exacerbation or injury. 10-Not Attempted due to Environmental Limitations-(lack of equipment, weather restraints, etc.). 88-Not Attempted due to Medical Conditions or Safety Concerns. Eating (QC): 5 (Per pt performed w/ set up, assistance opening containers.) Oral Hygiene (QC): 5 (Pt performed task w/ set up while setting in w/c sink side. ) Shower/Bathe Self (QC): 4 (Pt washed all parts, was CGA when standing to wash backside and brii area. ) Upper Body Dressing (QC): 5 (Pt required set up. ) Lower Body Dressing (QC): 3 (Pt requried Min assist for pant hike when standing.) On/Off Footwear: 4 (Pt requried SBA while seated in w/c. ) Other Treatment Pt was seated in chair upon OT arrival. Pt stated she wanted to get ready for the day and would love a shower. Pt agreed to OT tx session. Pt transferred from sitting in chair to standing w/ FWW at [facility]. Pt performed functional mobility w/ FWW to shower bench. Pt participated in shower, UBD, LBD, footwear, oral hygiene and grooming, see above QC's. Pt felt SOB during tasks and had to take x4 breaks, checked O2 saturation, pt was at 97%. OT notified nurse. Pt moves very slowly and is weak. Pt transferred from sitting in w/c to standing w/ FWW at [facility]. Pt performed functional mobility w/ FWW to chair at [facility]. Post tx session, pt was seated in chair, call light in reach, and all needs met. Education OT Patient Education: Correct positioning, Energy conservation, Modified ADL techniques, Progress toward Goal/Update tx plan, Purpose of tx/functional activities, Reviewed precautions, Rehab process, Safety issues, Transfer techniques, Use of adapted equipment Teaching Recipient: Patient Teaching Methods: Discussion Response to Teaching: Verbalize Understanding OT Short Term Goals Short Term Goals Time Frame: Mar 01, 2021 Toileting hygiene: 45 Shower/bathe self: 4 Upper body dressin Lower body dressin Putting on/taking off footwear: 4 OT Workforce Consultant Goals Skilled Nursing Goals Time Frame: Mar 10, 2021 Eating (QC): 6 Oral Hygiene (QC): 6 Toileting Hygiene (QC): 6 Shower/Bathe Self (QC): 6 Upper Body Dressing (QC): 6 Lower Body Dressing (QC): 6 On/Off Footwear (QC): 6 Additional Goals: 1-Demonstrate ADL Tasks, 2-Verbalize Understanding, 3- ImproveStrength/Bull 1=Demonstrate adherence to instructed precautions during ADL tasks. 2=Patient will verbalize/demonstrate understanding of assistive devices/modifications for ADL. 3=Patient will improve strength/tolerance for activity to enable patient to perform ADL's. OT Education/Plan Problem List/Assessment Assessment: Decreased Activ Tolerance, Decreased Safety Aware, Decreased UE Strength, Impaired Coordination, Impaired Funct Balance, Impaired I ADL's, Impaired Self-Care Skills Discharge Recommendations Plan/Recommendations: Continue POC Treatment Plan/Plan of Care Patient would benefit from OT for education, treatment and training to promote independence in ADL's, mobility, safety and/or upper extremity function for ADL's. Plan of Care: ADL Retraining, Functional Mobility, Group Exercise/Act as Ind, UE Funct Exercise/Act Treatment Duration: Mar 10, 2021 Frequency: At least 5 of 7 days/Wk (IRF) Estimated Hrs Per Day: 1.5 hours per day Agreement: Yes Rehab Potential: Fair Time/GCodes Start Time: 08:00 Stop Time: 09:00 Total Time Billed (hr/min): 60 Billed Treatment Time 1 Visit, ADL 4 MAGDIEL GREER OT Feb 17, 2021 09:01
[2021-02-17] MEDS: lisINopril 40 MG (PRINIVIL) TABLET PO SCH (09:02)
[2021-02-17] MEDS: ASCORBIC ACID (VIT C) 500 MG TABLET PO SCH (09:02)
[2021-02-17] MEDS: VITAMIN D3 25 MCG (1,000 UNITS) TABLET PO SCH (09:02)
[2021-02-17] MEDS: CLOPIDOGREL 75 MG (PLAVIX) TABLET PO SCH (09:02)
[2021-02-17] MEDS: ASPIRIN 81 MG CHEW (CHILDREN'S ASA) PO SCH (09:02)
--- NOTE | 2021-02-17 11:30 | PM&R Progress Note ---
Subjective HPI/CC On Admission Date Seen by Provider: Feb 17, 2021 Time Seen by Provider: 11:15 Subjective/Events-last exam 02/17/2021: Patient doing really well today Had a vomiting episode while in therapy so started gentle IV fluids and Zofran IV Blood pressure stable Headaches are daily Able to participate Review of Systems General: Fatigue Gastrointestinal: Nausea, Vomiting Neurological: Weakness, Incoordination Objective Exam Vital Signs Vital Signs Date Time Temp Pulse Resp B/P (MAP) Pulse Ox O2 Delivery O2 Flow Rate FiO2 02/17/21 20:00 36.9 65 18 153/67 (95) 94 Room Air Capillary Refill : General Appearance: No Apparent Distress, WD/WN, Chronically ill HEENT: PERRL/EOMI, Normal ENT Inspection, Pharynx Normal Neck: Full Range of Motion, Normal Inspection, Non Tender, Supple, Carotid Bruit Respiratory: Chest Non Tender, Lungs Clear, Normal Breath Sounds, No Accessory Muscle Use, No Respiratory Distress Cardiovascular: Regular Rate, Rhythm, No Edema, No Gallop, No JVD, No Murmur, Normal Peripheral Pulses Gastrointestinal: Normal Bowel Sounds, No Organomegaly, No Pulsatile Mass, Non Tender, Soft Back: Normal Inspection, No CVA Tenderness, No Vertebral Tenderness Extremity: Normal Capillary Refill, Normal Inspection, Normal Range of Motion, Non Tender, No Calf Tenderness, No Pedal Edema Neurologic/Psychiatric: Alert, Oriented x3, Normal Mood/Affect, logistics engineer II-XII Norm as Tested, Abnormal Gait, Motor Weakness (Right upper extremity weakness 3/5) Skin: Normal Color, Warm/Dry Lymphatic: No Adenopathy Results/Procedures Lab Laboratory Tests 02/17/21 05:52 Patient resulted labs reviewed. FIM Transfers Therapy Code Descriptions/Definitions Functional [place] Measure: 0=Not Assessed/NA 4=Minimal Assistance 1=Total Assistance 5=Supervision or Setup 2=Maximal Assistance 6=Modified [place] 3=Moderate Assistance 7=Complete IndependenceSCALE: Activities may be completed with or without assistive devices. 1-Uiitqpzeoi-xtdbcft completes the activity by him/herself with no assistance from a helper. 5-Set-up or Clean-up Assistance-helper sets up or cleans up; patient completes activity. [place] assists only prior to or following the activity. 4-Supervision or Touching Assistance-helper provides verbal cues and/or touching/steadying and/or contact guard assistance as patient completes activity. Assistance may be provided throughout the activity or intermittently. 3-Partial/Moderate Assistance-helper does LESS THAN HALF the effort. [place] lifts, holds or supports trunk or limbs, but provides less than half the effort. 2-Substantial/Maximal Assistance-helper does MORE THAN HALF the effort. [place] lifts or holds trunk or limbs and provides more than half the effort. 7-Oepvvbdjg-zxoqjx does ALL the effort. Patient does none of the effort to complete the activity. Or, the assistance of 2 or more helpers is required for the patient to complete the activity. If activity was not attempted, code reason: 7-Patient Refused. 9-Not Applicable-not attempted and the patient did not perform the activity before the current illness, exacerbation or injury. 10-Not Attempted due to Environmental Limitations-(lack of equipment, weather restraints, etc.). 88-Not Attempted due to Medical Conditions or Safety Concerns. Roll Left to Right (QC): 6 Sit to Lying (QC): 6 Sit to Stand (QC): 4 Chair/Cva-km-[place] Xfer(QC): 4 Car Transfer (QC): 3 Gait Training Does the Patient Walk?: Yes Walk 10 feet (QC): 4 Walk 50 ft with 2 Turns(QC): 4 Walk 150 ft (QC): 88 Walking 10ft/uneven surface-QC: 4 Gait Assistive Device: FWW Wheelchair Training Does the Pt Use a Wheelchair?: Yes Distance: 120' Wheel 50 ft with 2 turns (QC): 4 Wheel 150 ft (QC): 88 Type of Wheelchair: Manual Stair Training #of Steps: 1 1 Step (curb) (QC): 4 4 Steps (QC): 88 12 Steps (QC): 88 Balance Picking up an Object (QC): 4 ADL-Treatment Eating (QC): 5 (Per pt performed w/ set up, assistance opening containers.) Oral Hygiene (QC): 5 (Pt performed task w/ set up while setting in w/c sink side. ) Shower/Bathe Self (QC): 4 (Pt washed all parts, was CGA when standing to wash backside and brii area. ) Upper Body Dressing (QC): 5 (Pt required set up. ) Lower Body Dressing (QC): 3 (Pt requried Min assist for pant hike when standing.) On/Off Footwear (QC): 4 (Pt requried SBA while seated in w/c. ) Toileting Hygiene (QC): 4 (CGA in stand. Pt able to manage clothing and hyg iene.) Assessment/Plan Assessment and Plan Assess & Plan/Chief Complaint SeeAssessment: VA with right-sided weakness Hypertension Hyperlipidemia Chronic kidney disease IBS Nausea and vomiting on 02/17/2021 requiring IV Zofran and IV fluids Plan: Rehab protocol Aggressive therapy Home meds Metamucil at night 02/17/2021: Nausea and vomiting management Monitor closely (1) CVA (cerebral vascular accident) (2) Chronic kidney disease (3) Hypertension (4) Hyperlipidemia (5) IBS (irritable bowel syndrome) LAZ DIALLO DO Feb 17, 2021 11:30
--- NOTE | 2021-02-17 11:31 | Individualized Plan of Care ---
Individualized Plan of Care Rehab Nursing IPOC Order Admission Date Feb 16, 2021 at 14:15 Current Orders Orders Admission Order(Inpt,Obs,Sdc) (02/16/21 10:16) Vital Signs: Per Unit Policy ( ,,00 (02/16/21 10:16) Ferdinand Cook (02/16/21 10:16) Sequential Compression Device .admit (02/16/21 10:16) Equipment Man-Inpt Rehab Con (02/16/21 10:16) Rehab Nursing Orders-Ipoc (02/16/21 10:16) Physical Therapy Rehab Orders (02/16/21 10:16) Occupational Therapy Rehab Ord (02/16/21 10:16) Speech Therapy Rehab Orders (02/16/21 10:16) Cbc With Automated Diff (02/17/21 06:00) Comprehensive Metabolic Panel (02/17/21 06:00) Precautions (Aru) (02/16/21 10:16) Rehab-Intensity Of Therapy (02/16/21 10:16) Initiate Admission Nursing Pro .admission (02/16/21 10:16) Alprazolam Tablet (Xanax Tablet) (02/16/21 10:30) Calcium Carbonate Chew Tablet (Antacid C (02/16/21 10:30) Diphenhydramine Tablet (Benadryl Tablet) (02/16/21 10:30) Docusate Sodium Capsule (Colace Capsule) (02/16/21 21:00) Docusate Sodium Capsule (Colace Capsule) (02/16/21 10:30) Bisacodyl Suppository (Dulcolax Supposit (02/16/21 10:30) Lactulose Oral Solution (Enulose Oral So (02/16/21 10:30) Na Phos/Na Biphos Enema (Fleet Enema Johnathon (02/16/21 10:30) Guaifenesin/Codeine Syrup (Robitussin Ac (02/16/21 10:30) Loperamide Tablet (Imodium Tablet) (02/16/21 10:30) Melatonin Tablet (Melatonin Tablet) (02/16/21 10:30) Polyethylene Glycol Powder Pkt (Miralax (02/16/21 21:00) Ondansetron Oral Dissolve Tab (Zofran (02/16/21 10:30) Senna S Tablet (Senokot S Tablet) (02/16/21 21:00) Initiate Admission Nursing Pro .admission (02/16/21 10:16) Acetaminophen Tablet (Tylenol Tablet) (02/16/21 10:30) Aspirin Chewable Tablet (Baby Aspirin Ch (02/17/21 09:00) Atorvastatin Tablet (Lipitor Tablet) (02/16/21 21:00) Carvedilol Tablet (Coreg Tablet) (02/16/21 21:00) Clopidogrel Tablet (Plavix Tablet) (02/17/21 09:00) Hydrochlorothiazide Cap/Tablet (Hctz Cap (02/17/21 09:00) Loperamide Tablet (Imodium Tablet) (02/16/21 12:00) (Nf) Ascorbate Calcium (Vitamin C) (02/17/21 09:00) (Nf) Benazepril Hcl (02/17/21 09:00) (Nf) Cholecalciferol (Vitamin D3) (Vitam (02/17/21 09:00) (Nf) Melatonin (02/16/21 21:00) (Nf) Multivitamin (02/17/21 09:00) (Nf) Potassium Chloride (02/17/21 09:00) Admission Arrival Bed Request (02/16/21 14:11) Acetaminophen Tablet/Caplet (Tylenol T (02/16/21 15:30) Therapeutic Multivitamin Tab (Vitamins, (02/17/21 07:00) Melatonin Tablet (Melatonin Tablet) (02/16/21 21:00) Lisinopril Tablet (Zestril Tablet) (02/17/21 09:00) Ascorbic Acid Tablet (Vitamin C Tablet) (02/17/21 08:00) Cholecalciferol Capsule/Tablet (Vitamin (02/17/21 09:00) Potassium Chloride (Tablet) (K Dur Table (02/17/21 07:00) Patient Visit (02/16/21 ) Pt Eval Moderate Complexity (02/16/21 ) Exercise Therap, Ea 15 Min (02/16/21 ) Functional Activities, Ea 15 (02/16/21 ) General/Regular (02/16/21 Dinner) Psyllium Powder (Metamucil Powder) (02/16/21 20:00) Ondansetron Injection (Zofran Injectio (02/17/21 11:45) Ondansetron Injection (Zofran Injectio (02/17/21 11:45) Iv Heplock-Insert (Order) (02/17/21 11:36) Ns Iv 1000 Ml (Sodium Chloride 0.9%) (02/17/21 11:45) Patient Visit (02/17/21 ) Patient Visit (02/17/21 ) Exercise Therap, Ea 15 Min (02/17/21 ) Gait Training, Ea 15 Min (02/17/21 ) Functional Activities, Ea 15 (02/17/21 ) Rehab Nursing Orders: Ongoing Assess. of Function Status, Bladder Management, B ladder Scan, Bladder Training, Bowel Management, Bowel Training, Disease Management & Educaiton, DVT Prophylaxis, Fall Prevention, Fluid/Electrolyte/Nutrition Mgmt, Infection Prevention, Medication Management & Education, Management of Risks & Complications, Management of Skin Intergrity, Nutrition Management, Pain Management, Patient/Family Support, Safety Management Intensity of Therapy to be met Patient to be seen: Min.3h per day/5 of 7d PT IPOC Problem List: Activity Tolerance, Functional Strength, Safety, Balance, Gait, Transfer, Bed Mobility, ROM Treatment Plan: Continue Plan of Care Bed Mobility, Education, Functional Activity Bull, Functional Strength, Group Therapy, Gait, Safety, Therapeutic Exercise, Transfers Treatment Duration: Mar 09, 2021 Frequency: At least 5 of 7 days/Wk (IRF) Estimated Hrs Per Day: 1.5 hours per day OT IPOC Problems: Decreased Activ Tolerance, Decreased Safety Aware, Decreased UE Strength, Impaired Coordination, Impaired Funct Balance, Impaired I ADL's, Impaired Self-Care Skills OT Treatment, Training and Edu: Yes Plan of Care: ADL Retraining, Functional Mobility, Group Exercise/Act as Ind, UE Funct Exercise/Act Treatment Duration: Mar 10, 2021 Frequency: At least 5 of 7 days/Wk (IRF) Estimated Hrs Per Day: 1.[address] IPOC Speech Therapy Treatment Plan: Modify Plan, See Comments Treatment Duration: Feb 17, 2021 Frequency: Modified Program (IRF) Estimated Hrs Per Day: Other Equipment Man/Case Mgmt Equipment Man/Case Managemen: Discharge Planning Dietitian/Field Sales Agent Dietitian/Field Sales Agent to monitor nutritional status and make changes and/or recommendations as needed and work with speech pathology on dietary upgrades as the occur. Physician IPOC Medical Issues being managed closely and that require the 24 hour availability of a physician: Recent CVA with right-sided weakness with IBS and propensity for nausea and vomiting will require close monitoring to prevent decompensation Medical Issues: Bowel/Bladder Function, DVT Prophylaxis, Falls Precautions, Fluid/Electrolyte/Nutrition Balance, Infection Protection, Pain Management Brief Synthesis of Preadmission Screen, Post-Admission Evaluation, and Therapy Evaluations: PT and OT will focus on regaining function with the use of assistive devices and increase independence in ADLs in order to return back to [facility] Prognosis: Good Anticipated Length of Stay: 10 days LAZ DIALLO DO Feb 17, 2021 11:31
[2021-02-17] MEDS ORDERED: ONDANSETRON 4 MG/2 ML (SDV) Z0FRAN IVP ONE (11:45)
[2021-02-17] MEDS ORDERED: ONDANSETRON 4 MG/2 ML (SDV) Z0FRAN IVP PRN (11:45)
[2021-02-17] MEDS: NS IV 1000 ML 1,000 ML IV SCH (12:35)
--- NOTE | 2021-02-17 13:33 | Occupational Ther Daily Note ---
OT Current Status-Daily Note Subjective Pt was lying supine in bed upon OT arrival. Pt was feeling nauseous from getting sick earlier in the day. Pt agreed to tx session while lying in bed. Mental Status/Objective Patient Orientation: Person, Place, Situation Attachments: IV ADL-Treatment Therapy Code Descriptions/Definitions Functional Terrell Measure: 0=Not Assessed/NA 4=Minimal Assistance 1=Total Assistance 5=Supervision or Setup 2=Maximal Assistance 6=Modified Terrell 3=Moderate Assistance 7=Complete IndependenceSCALE: Activities may be completed with or without assistive devices. 1-Gaqnltgeim-wpigxms completes the activity by him/herself with no assistance from a helper. 5-Set-up or Clean-up Assistance-helper sets up or cleans up; patient completes activity. Emerson assists only prior to or following the activity. 4-Supervision or Touching Assistance-helper provides verbal cues and/or touching/steadying and/or contact guard assistance as patient completes activity. Assistance may be provided throughout the activity or intermittently. 3-Partial/Moderate Assistance-helper does LESS THAN HALF the effort. Emerson lifts, holds or supports trunk or limbs, but provides less than half the effort. 2-Substantial/Maximal Assistance-helper does MORE THAN HALF the effort. Emerson lifts or holds trunk or limbs and provides more than half the effort. 3-Twakthxzc-ecfbac does ALL the effort. Patient does none of the effort to compl ete the activity. Or, the assistance of 2 or more helpers is required for the patient to complete the activity. If activity was not attempted, code reason: 7-Patient Refused. 9-Not Applicable-not attempted and the patient did not perform the activity before the current illness, exacerbation or injury. 10-Not Attempted due to Environmental Limitations-(lack of equipment, weather restraints, etc.). 88-Not Attempted due to Medical Conditions or Safety Concerns. Other Treatment Pt was lying supine in bed upon OT arrival. Pt was feeling nauseous from getting sick earlier in the day. Pt agreed to tx session while lying in bed. Pt participated in pt education covering energy conservation techniques for endurance w/ ADL's. Pt stated that she has grabbars in tub though does not think that a tub seat will fit. Discussed tub transfer bench and hand held shower. Pt participated while lying in bed w/ HOB elevated in BUE mild resistance theraband exercises x2 rounds of x5 reps of each of the following: shoulder abduction, elbow extension, elbow flexion, shoulder external rotation, and shoulder horizontal abduction. Tolerated treatment well. Post tx session, pt lying supine in bed, call light within reach, and all needs met. Education OT Patient Education: Energy conservation, Exercise program, Home exercise program, Progress toward Goal/Update tx plan, Purpose of tx/functional activities, Rehab process, Safety issues Teaching Recipient: Patient Teaching Methods: Demonstration, Handout, Discussion Response to Teaching: Verbalize Understanding, Return Demonstration OT Short Term Goals Short Term Goals Time Frame: Mar 01, 2021 Toileting hygiene: 45 Shower/bathe self: 4 Upper body dressin Lower body dressin Putting on/taking off footwear: 4 OT Long-Term Goals Long-Term Goals Time Frame: Mar 10, 2021 Eating (QC): 6 Oral Hygiene (QC): 6 Toileting Hygiene (QC): 6 Shower/Bathe Self (QC): 6 Upper Body Dressing (QC): 6 Lower Body Dressing (QC): 6 On/Off Footwear (QC): 6 Additional Goals: 1-Demonstrate ADL Tasks, 2-Verbalize Understanding, 3- ImproveStrength/Bull 1=Demonstrate adherence to instructed precautions during ADL tasks. 2=Patient will verbalize/demonstrate understanding of assistive devices/modifications for ADL. 3=Patient will improve strength/tolerance for activity to enable patient to perform ADL's. OT Education/Plan Problem List/Assessment Assessment: Decreased Activ Tolerance, Decreased UE Strength, Impaired Coordination, Impaired Funct Balance, Impaired I ADL's, Impaired Self-Care Skills Discharge Recommendations Plan/Recommendations: Continue POC Treatment Plan/Plan of Care Patient would benefit from OT for education, treatment and training to promote independence in ADL's, mobility, safety and/or upper extremity function for ADL's. Plan of Care: ADL Retraining, Functional Mobility, Group Exercise/Act as Ind, UE Funct Exercise/Act Treatment Duration: Mar 10, 2021 Frequency: At least 5 of 7 days/Wk (IRF) Estimated Hrs Per Day: 1.5 hours per day Agreement: Yes Rehab Potential: Fair Time/GCodes Start Time: 12:50 Stop Time: 13:20 Total Time Billed (hr/min): 30 Billed Treatment Time 1 Visit, EX 1 (15 min) FA 1 (15 min) LESLEY LINDSEY Feb 17, 2021 13:33
--- NOTE | 2021-02-17 13:58 | Physical Therapy Daily Note ---
PT Daily Note-Current Subjective Patient reports she is not in any pain currently, however feels very cold and dizzy. Mental Status Patient Orientation: Person, Place, Time, Situation Transfers SCALE: Activities may be completed with or without assistive devices. 1-Yhpmxjcwmf-qyirhzm completes the activity by him/herself with no assistance from a helper. 5-Set-up or Clean-up Assistance-helper sets up or cleans up; patient completes activity. Homer assists only prior to or following the activity. 4-Supervision or Touching Assistance-helper provides verbal cues and/or touching/steadying and/or contact guard assistance as patient completes activity. Assistance may be provided throughout the activity or intermittently. 3-Partial/Moderate Assistance-helper does LESS THAN HALF the effort. Homer lifts, holds or supports trunk or limbs, but provides less than half the effort. 2-Substantial/Maximal Assistance-helper does MORE THAN HALF the effort. Homer lifts or holds trunk or limbs and provides more than half the effort. 9-Slhmxyojs-kgxjtt does ALL the effort. Patient does none of the effort to complete the activity. Or, the assistance of 2 or more helpers is required for the patient to complete the activity. If activity was not attempted, code reason: 7-Patient Refused. 9-Not Applicable-not attempted and the patient did not perform the activity before the current illness, exacerbation or injury. 10-Not Attempted due to Environmental Limitations-(lack of equipment, weather restraints, etc.). 88-Not Attempted due to Medical Conditions or Safety Concerns. Roll Left & Right (QC): 3 Sit to Lying (QC): 3 Lying to Sitting/Side of Bed(Q: 3 Sit to Stand (QC): 3 Chair/Ftd-kn-Btepj Xfer(QC): 3 Toilet Transfer (QC): 3 Gait Training Does the Patient Walk?: Yes Distance: 30 feet Walk 10 feet (QC): 3 Gait Assistive Device: FWW Wheelchair Training Does the Pt Use a Wheelchair?: Yes Wheel 50 ft with 2 turns (QC): 4 Exercises Seated Therapy Exercises: Ankle pumps, Long arc quads, Hip flexion, Hamstring Curls, Hip abd/add, Glut set Seated Reps: 20 Treatments Visit, Gait, Ex, FA (2) Assessment Current Status: Fair Progress Patient tolerated treatment poorly due to nausea and getting sick towards the end of treatment. Patient performed all observed bed mobility and transfers with min A and verbal cues for safety and performance. Patient performs therapeutic exercise as listed above. Patient performed therapeutic activity consisting of transfer training, BR training, w/c training. During W/C training patient became ill and vomitted into her mask and then trash can, which was the only bucket close by. Patient was cleaned up, nurse notified and patient tr ansferred to bed with min A. Patient in bed post treatment with all needs met, nursing notified, call light in reach. PT Short Term Goals Short Term Goals Time Frame: Feb 23, 2021 Roll Left & Right: 6 Sit to lyin Lying to sitting on side of be: 6 Sit to stand: 4 (SBA) Chair/jtq-el-htrib transfer: 4 (SBA) Walk 10 feet: 4 (SBA) Walk 50 feet with two turns: 4 (SBA) PT [employer] Goals [employer] Goals PT [employer] Goals Time Frame: Mar 09, 2021 Roll Left & Right (QC): 6 Sit to Lying (QC): 6 Lying-Sitting on Side/Bed(QC): 6 Sit to Stand (QC): 6 Chair/Xok-yl-Dmsix Xfer(QC): 6 Toilet Transfer (QC): 6 Car Transfer (QC): 5 Does the Patient Walk: Yes Walk 10 feet (QC): 6 Walk 50ft with 2 Turns (QC): 6 Walk 150 ft (QC): 6 Walking 10ft on Uneven Surface: 6 1 Step (curb) (QC): 4 4 Steps (QC): 4 12 Steps (QC): 88 Picking up an Object (QC): 4 Wheel 50 feet with 2 turns (QC: 9 Wheel 150 feet: 9 PT Plan Treatment/Plan Treatment Plan: Continue Plan of Care Treatment Plan: Bed Mobility, Education, Functional Activity Bull, Functional Strength, Group Therapy, Gait, Safety, Therapeutic Exercise, Transfers Treatment Duration: Mar 09, 2021 Frequency: At least 5 of 7 days/Wk (IRF) Estimated Hrs Per Day: 1.5 hours per day Patient and/or Family Agrees t: Yes Safety Risks/Education Patient Education: Gait Training, Transfer Techniques Teaching Recipient: Patient Teaching Methods: Demonstration, Discussion Response to Teaching: Verbalize Understanding, Return Demonstration Time/GCodes Time In: 1100 Time Out: 1200 Total Billed Treatment Time: 60 Total Billed Treatment Visit, Eric Rizo FA (2) FIDELIA NEWSOME PT Feb 17, 2021 13:58
--- NOTE | 2021-02-17 14:30 | Physical Therapy Progress Note ---
Therapy Progress Note PT attempt to see patient for treatment. Patient declined due to continued to nausea and vomiting and is unable to safely participate with skilled therapy. Nursing confirms. PT to resume in a.m. 1 visit ABBY COLEMAN PT Feb 17, 2021 14:30
--- NOTE | 2021-02-17 15:43 | Consultation-Cardiology ---
HPI-Cardiology Cardiology Consultation: Date of Consultation 02/17/2021 Date of Admission 02/16/2021 Attending Physician Nabila Garcia DO Admitting Physician Renee Little MD Consulting Physician RYAN DIAS JR, MD HPI: Time Seen by a Provider: 15:38 Chief Complaint: Reason for consultation: Recent cerebrovascular accident and pulmonary hypertension. I had the pleasure of seeing Theresa on the inpatient rehabilitation unit here at [facility] in [place], [place] this afternoon. 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 She could not move her right side. Her friend called a family member who came over and called 911. 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 She was administered tenecteplase and taken to [facility] by helicopter for further treatment. She underwent an extensive evaluation at the outside facility part of which showed 60% stenosis of the left carotid artery. She subsequently underwent an invasive angiogram that showed carotid plaque without significant stenosis. She had been placed on aspirin, clopidogrel and statin medication. She also underwent an echocardiogram at the outside facility showed normal left and right ventricular size and function with mild mitral regurgitation, mild to moderate tricuspid regurgitation and an estimated pulmonary artery pressure of 60 mmHg. The proximal ascending aorta was also dilated at 3.8 cm. Yesterday she was transferred to our inpatient rehabilitation facility for inpatient rehab. Because of the pulmonary hypertension, a cardiology consultation was requested. She denies any previous history of stroke. She has longstanding hypertension. She denies chest discomfort, dyspnea, paroxysmal nocturnal dyspnea, orthopnea, palpitations, lightheadedness, syncope, or lower extremity edema. She is a lifelong non-smoker although she did have a significant history of secondhand smoke coming from her who smoked until he . Certain portions of this document may have been dictated utilizing voice recognition technology. Inherent to this technology, typographical and grammatical errors may exist. As much as I am diligent to identify and correct these mistakes, some errors may remain in the document. Review of Systems-Cardiology Review of Systems Other comments Review of 10 organ systems is as per the history of present illness, otherwise negative. 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 Family Medical History Family Medical History: The patient does not know of any family history of premature coronary artery disease. Allergies and Home Medications Allergies Coded Allergies: ciprofloxacin (Unverified Allergy, Unknown, 01/05/11) ciprofloxacin HCl (Unverified Allergy, Unknown, 01/05/11) Patient Home Medication List Home Medication List Reviewed: Yes Ascorbate Calcium (Vitamin C) 500 Mg Tablet, 500 MG PO DAILY, (Reported) Entered as Reported by: EFRAIN JUNE on 02/16/211146 Last Action: Converted Aspirin (Aspirin) 81 Mg Tab.chew, 81 MG PO DAILY, (Reported) Entered as Reported by: EFRAIN JUEN on 02/16/211146 Last Action: Continued Atorvastatin Calcium (Atorvastatin Calcium) 40 Mg Tablet, 40 MG PO HS, (Reported) Entered as Reported by: EFRAIN JUNE on 02/16/211146 Last Action: Continued Benazepril HCl (Benazepril HCl) 40 Mg Tab, 40 MG PO DAILY, (Reported) Entered as Reported by: EFRAIN JUNE on 02/16/211146 Last Action: Converted Carvedilol (Carvedilol) 12.5 Mg Tablet, 25 MG PO BID, (Reported) Entered as Reported by: EFRAIN JUNE on 02/16/211146 Last Action: Continued Cholecalciferol (Vitamin D3) (Vitamin D3) 25 Mcg Capsule, 25 MCG PO DAILY, (Reported) Entered as Reported by: EFRAIN JUNE on 02/16/211146 Last Action: Converted Clopidogrel Bisulfate (Clopidogrel) 75 Mg Tablet, 75 MG PO DAILY, (Reported) Entered as Reported by: EFRAIN JUNE on 02/16/211146 Last Action: Continued Hydrochlorothiazide (Hydrochlorothiazide) 25 Mg Tablet, 50 MG PO DAILY, (Reported) Entered as Reported by: EFRAIN JUNE on 02/16/211146 Last Action: Continued Loperamide HCl (Loperamide) 2 Mg Capsule, 2-4 MG PO Q6H PRN for LOOSE STOOLS, (Reported) Entered as Reported by: EFRAIN JUNE on 02/16/211146 Last Action: Continued Melatonin (Melatonin) 5 Mg Tablet, 5 MG PO HS, (Reported) Entered as Reported by: EFRAIN JUNE on 02/16/211146 Last Action: Converted Multivitamin (Multivitamin) 1 Each Tablet, 1 EACH PO DAILY, (Reported) Entered as Reported by: EFRAIN JUNE on 02/16/211146 Last Action: Converted Potassium Chloride (Potassium Chloride) 20 Meq Tablet.er, 20 MEQ PO DAILY, (Reported) Entered as Reported by: EFRAIN JUNE on 02/16/211146 Last Action: Converted Exam Vital Signs Vital Signs Date Time Temp Pulse Resp B/P (MAP) Pulse Ox O2 Delivery O2 Flow Rate FiO2 02/17/21 09:00 Room Air 02/17/21 08:00 36.9 69 15 160/67 (98) 97 Physical Exam General: Alert. No acute distress. Well nourished and appears stated age. Eye: Extraocular movements are intact. Conjunctivae are clear. There are no xanthelasma. HENT: Normocephalic. Atraumatic. Carotid pulsations 2/2 without bruits. Neck: Jugular venous pressure does not appear elevated. No thyromegaly appreciated. Respiratory: Lungs are clear to auscultation. Respirations are non-labored. Breath sounds are equal. Symmetrical chest wall expansion. Cardiovascular: Normal rate. Regular rhythm. No murmur. No gallop. Point of maximal impulse is not appear displaced. Good pulses equal in all extremities. No edema. Gastrointestinal: Soft. Normal bowel sounds. Skin: Skin turgor is normal. There is no pallor. Musculoskeletal: No kyphosis or scoliosis appreciated. Neurologic: Alert and oriented to person, place, time. Cranial nerves 3-12 appear grossly intact. The patient has good motor tone strength in the upper and lower extremities bilaterally. Psychiatric: Cooperative. Appropriate mood & affect. Labs Laboratory Tests Test 02/17/21 05:52 Range/Units White Blood Count 9.9 4.3-11.0 10^3/uL Red Blood Count 3.49 L 3.80-5.11 10^6/uL Hemoglobin 10.7 L 11.5-16.0 g/dL Hematocrit 32 L 35-52 % Mean Corpuscular Volume 91 80-99 fL Mean Corpuscular Hemoglobin 31 25-34 pg Mean Corpuscular Hemoglobin Concent 34 32-36 g/dL Red Cell Distribution Width 12.4 10.0-14.5 % Platelet Count 185 130-400 10^3/uL Mean Platelet Volume 10.6 9.0-12.2 fL Immature Granulocyte % (Auto) 0 % Neutrophils (%) (Auto) 76 H 42-75 % Lymphocytes (%) (Auto) 17 12-44 % Monocytes (%) (Auto) 5 0-12 % Eosinophils (%) (Auto) 2 0-10 % Basophils (%) (Auto) 0 0-10 % Neutrophils # (Auto) 7.5 1.8-7.8 10^3/uL Lymphocytes # (Auto) 1.7 1.0-4.0 10^3/uL Monocytes # (Auto) 0.5 0.0-1.0 10^3/uL Eosinophils # (Auto) 0.2 0.0-0.3 10^3/uL Basophils # (Auto) 0.0 0.0-0.1 10^3/uL Immature Granulocyte # (Auto) 0.0 0.0-0.1 10^3/uL Sodium Level 137 135-145 MMOL/L Potassium Level 3.8 3.6-5.0 MMOL/L Chloride Level 102 98-107 MMOL/L Carbon Dioxide Level 23 21-32 MMOL/L Anion Gap 12 5-14 MMOL/L Blood Urea Nitrogen 15 7-18 MG/DL Creatinine 0.87 0.60-1.30 MG/DL Estimat Glomerular Filtration Rate 62 BUN/Creatinine Ratio 17 Glucose Level 111 H 70-105 MG/DL Calcium Level 8.9 8.5-10.1 MG/DL Corrected Calcium 9.5 8.5-10.1 MG/DL Total Bilirubin 0.7 0.1-1.0 MG/DL Aspartate Amino Transf (AST/SGOT) 47 H 5-34 U/L Alanine Aminotransferase (ALT/SGPT) 30 0-55 U/L Alkaline Phosphatase 42 40-136 U/L Total Protein 6.2 L 6.4-8.2 GM/DL Albumin 3.2 3.2-4.5 GM/DL Diagnosis/Problems Diagnosis/Problems (1) Pulmonary hypertension Assessment & Plan: Exact etiology unclear. She is a lifelong non-smoker although did have a significant secondhand exposure to cigarette smoking. She has no history of pulmonary disease. She does not have any pulmonary symptoms. I would suggest that we obtain a follow-up echocardiogram in 3-6 months. I do not see any indication for an extensive evaluation for secondary causes of pulmonary hypertension at this point in time. (2) Left middle cerebral artery stroke Assessment & Plan: This was initially thought to be due to atheroembolic disease from the carotid arteries that may have embolized. However, her invasive carotid angiogram did not show significant carotid stenosis. This does not exclude atheroembolic disease. However, this also raises a question of possible cardiac source of embolism. Once she recovers from the stroke and is discharged home, we may want to consider a 30-day event monitor to screen for paroxysmal atrial fibrillation. In the interim, she should continue on aspirin, clopidogrel and statin medication (3) Thoracic aortic aneurysm without rupture Assessment & Plan: This was an incidental finding on her echocardiogram at the outside facility. This is in a mild range. This will need to be followed longitudinally. (4) Atherosclerosis of both carotid arteries Assessment & Plan: As above, she was found to have bilateral atherosclerosis with no significant stenosis. Continue aspirin and statin medication. (5) Primary hypertension Assessment & Plan: Blood pressures are intermittently elevated. She is now out of the acute phase of the stroke. If her blood pressures remain elevated, she may need some adjustment to her antihypertensive medication. (6) Mixed hyperlipidemia Assessment & Plan: She had no previous history of hyperlipidemia but in light of the stroke and carotid atherosclerosis, she should continue statin medication RYAN DIAS JR, MD Feb 17, 2021 15:43
[2021-02-17 20:00] VITALS: BP 153/67
[2021-02-17] MEDS: MELATONIN 10 MG TABLET PO SCH (21:30)
[2021-02-17] MEDS: PSYLLIUM POWDER (METAMUCIL) 5.8 GM PACKET PO SCH (21:31)
[2021-02-18] MEDS: NS IV 1000 ML 1,000 ML IV SCH (04:45)
[2021-02-18] MEDS: KCL 20 MEQ TAB (K-DUR) PO SCH (07:15)
[2021-02-18] MEDS: MULTIVIT W/MINERALS TAB (THERAGRAN M) PO SCH (07:15)
[2021-02-18 08:54] VITALS: BP 106/57
[2021-02-18] MEDS: VITAMIN D3 25 MCG (1,000 UNITS) TABLET PO SCH (08:58)
[2021-02-18] MEDS: ASPIRIN 81 MG CHEW (CHILDREN'S ASA) PO SCH (08:59)
[2021-02-18] MEDS: lisINopril 40 MG (PRINIVIL) TABLET PO SCH (08:59)
[2021-02-18] MEDS: CLOPIDOGREL 75 MG (PLAVIX) TABLET PO SCH (08:59)
[2021-02-18] MEDS: ASCORBIC ACID (VIT C) 500 MG TABLET PO SCH (09:00)
[2021-02-18] MEDS: polyethylene glycoL POWDER 17 GM (MIRALAX) PACK PO SCH ×2 (09:01→21:05)
[2021-02-18] MEDS: DOCUSATE SODIUM 100 MG (COLACE) CAP PO SCH ×2 (09:01→21:05)
[2021-02-18] MEDS: SENNA W/DOCUSATE (SENOKOT S) TABLET PO SCH ×2 (09:02→21:05)
[2021-02-18 09:10] VITALS: BP_SYST 102; BP_SYST 115; BP_SYST 125; BP_DIAS 58; BP_DIAS 59; BP_DIAS 64
--- NOTE | 2021-02-18 10:19 | PM&R Progress Note ---
Subjective HPI/CC On Admission Date Seen by Provider: Feb 18, 2021 Time Seen by Provider: 13:00 Subjective/Events-last exam 02/18/2021: Patient doing really well Pain is controlled Discontinue the Hep-Lock since no more nausea or vomiting Check meds and labs Irritable bowel management 02/17/2021: Patient doing really well today Had a vomiting episode while in therapy so started gentle IV fluids and Zofran IV Blood pressure stable Headaches are daily Able to participate Review of Systems General: Fatigue Neurological: Weakness, Incoordination Objective Exam Vital Signs Vital Signs Date Time Temp Pulse Resp B/P (MAP) Pulse Ox O2 Delivery O2 Flow Rate FiO2 02/18/21 20:00 96 Room Air 02/18/21 20:00 36.6 64 20 126/63 (84) Capillary Refill : General Appearance: No Apparent Distress, WD/WN, Chronically ill HEENT: PERRL/EOMI, Normal ENT Inspection, Pharynx Normal Neck: Full Range of Motion, Normal Inspection, Non Tender, Supple, Carotid Bruit Respiratory: Chest Non Tender, Lungs Clear, Normal Breath Sounds, No Accessory Muscle Use, No Respiratory Distress Cardiovascular: Regular Rate, Rhythm, No Edema, No Gallop, No JVD, No Murmur, Normal Peripheral Pulses Gastrointestinal: Normal Bowel Sounds, No Organomegaly, No Pulsatile Mass, Non Tender, Soft Back: Normal Inspection, No CVA Tenderness, No Vertebral Tenderness Extremity: Normal Capillary Refill, Normal Inspection, Normal Range of Motion, Non Tender, No Calf Tenderness, No Pedal Edema Neurologic/Psychiatric: Alert, Oriented x3, Normal Mood/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 FIM Transfers Therapy Code Descriptions/Definitions Functional [place] Measure: 0=Not Assessed/NA 4=Minimal Assistance 1=Total Assistance 5=Supervision or Setup 2=Maximal Assistance 6=Modified [place] 3=Moderate Assistance 7=Complete IndependenceSCALE: Activities may be completed with or without assistive devices. 9-Nyswmjtsqc-bqzybfm completes the activity by him/herself with no assistance from a helper. 5-Set-up or Clean-up Assistance-helper sets up or cleans up; patient completes activity. Edison assists only prior to or following the activity. 4-Supervision or Touching Assistance-helper provides verbal cues and/or touching/steadying and/or contact guard assistance as patient completes activity. Assistance may be provided throughout the activity or intermittently. 3-Partial/Moderate Assistance-helper does LESS THAN HALF the effort. Edison lifts, holds or supports trunk or limbs, but provides less than half the effort. 2-Substantial/Maximal Assistance-helper does MORE THAN HALF the effort. Edison lifts or holds trunk or limbs and provides more than half the effort. 3-Uapynfnzh-jswrsi does ALL the effort. Patient does none of the effort to complete the activity. Or, the assistance of 2 or more helpers is required for the patient to complete the activity. If activity was not attempted, code reason: 7-Patient Refused. 9-Not Applicable-not attempted and the patient did not perform the activity before the current illness, exacerbation or injury. 10-Not Attempted due to Environmental Limitations-(lack of equipment, weather restraints, etc.). 88-Not Attempted due to Medical Conditions or Safety Concerns. Roll Left to Right (QC): 3 Sit to Lying (QC): 3 Sit to Stand (QC): 3 Chair/Rpf-lj-Uvlwf Xfer(QC): 3 Car Transfer (QC): 3 Gait Training Does the Patient Walk?: Yes Distance: 30 feet Walk 10 feet (QC): 3 Walk 50 ft with 2 Turns(QC): 4 Walk 150 ft (QC): 88 Walking 10ft/uneven surface-QC: 4 Gait Assistive Device: FWW Wheelchair Training Does the Pt Use a Wheelchair?: Yes Distance: 120' Wheel 50 ft with 2 turns (QC): 4 Wheel 150 ft (QC): 88 Type of Wheelchair: Manual Stair Training #of Steps: 1 1 Step (curb) (QC): 4 4 Steps (QC): 88 12 Steps (QC): 88 Balance Picking up an Object (QC): 4 ADL-Treatment Eating (QC): 5 (Per pt performed w/ set up, assistance opening containers.) Oral Hygiene (QC): 5 (Pt performed task w/ set up while setting in w/c sink side. ) Shower/Bathe Self (QC): 4 (Pt washed all parts, was CGA when standing to wash backside and brii area. ) Upper Body Dressing (QC): 5 (Pt required set up. ) Lower Body Dressing (QC): 3 (Pt requried Min assist for pant hike when standing.) On/Off Footwear (QC): 4 (Pt requried SBA while seated in w/c. ) Toileting Hygiene (QC): 4 (CGA in stand. Pt able to manage clothing and hygiene.) Assessment/Plan Assessment and Plan Assess & Plan/Chief Complaint SeeAssessment: VA with right-sided weakness Hypertension Hyperlipidemia Chronic kidney disease IBS Nausea and vomiting on 02/17/2021 requiring IV Zofran and IV fluids Plan: Rehab protocol Aggressive therapy Home meds Metamucil at night 02/17/2021: Nausea and vomiting management Monitor closely 02/18/2021: Discontinue IV Supportive care (1) Pulmonary hypertension Assessment & Plan: Exact etiology unclear. She is a lifelong non-smoker although did have a significant secondhand exposure to cigarette smoking. She has no history of pulmonary disease. She does not have any pulmonary symptoms. I would suggest that we obtain a follow-up echocardiogram in 3-6 months. I do not see any indication for an extensive evaluation for secondary causes of pulmonary hypertension at this point in time. (2) Left middle cerebral artery stroke Assessment & Plan: This was initially thought to be due to atheroembolic disease from the carotid arteries that may have embolized. However, her invasive carotid angiogram did not show significant carotid stenosis. This does not exclude atheroembolic disease. However, this also raises a question of possible cardiac source of embolism. Once she recovers from the stroke and is discharged home, we may want to consider a 30-day event monitor to screen for paroxysmal atrial fibrillation. In the interim, she should continue on aspirin, clopidogrel and statin medication (3) Thoracic aortic aneurysm without rupture Assessment & Plan: This was an incidental finding on her echocardiogram at the outside facility. This is in a mild range. This will need to be followed longitudinally. (4) Atherosclerosis of both carotid arteries Assessment & Plan: As above, she was found to have bilateral atherosclerosis with no significant stenosis. Continue aspirin and statin medication. (5) Primary hypertension Assessment & Plan: Blood pressures are intermittently elevated. She is now out of the acute phase of the stroke. If her blood pressures remain elevated, she may need some adjustment to her antihypertensive medication. (6) Mixed hyperlipidemia Assessment & Plan: She had no previous history of hyperlipidemia but in light of the stroke and carotid atherosclerosis, she should continue statin medication LAZ DIALLO DO Feb 18, 2021 10:19
--- NOTE | 2021-02-18 11:07 | Physical Therapy Daily Note ---
PT Daily Note-Current Subjective Patient in bed pre tx, has no complaints of pain, no longer nauseated, agrees to PT. Appearance Patient in bed post tx with nurse call, phone, tray, all needs met. Mental Status Patient Orientation: Person, Place, Situation Transfers SCALE: Activities may be completed with or without assistive devices. 2-Xhzzbprnng-exsecvr completes the activity by him/herself with no assistance from a helper. 5-Set-up or Clean-up Assistance-helper sets up or cleans up; patient completes activity. [place] assists only prior to or following the activity. 4-Supervision or Touching Assistance-helper provides verbal cues and/or touching/steadying and/or contact guard assistance as patient completes activity. Assistance may be provided throughout the activity or intermittently. 3-Partial/Moderate Assistance-helper does LESS THAN HALF the effort. [place] lifts, holds or supports trunk or limbs, but provides less than half the effort. 2-Substantial/Maximal Assistance-helper does MORE THAN HALF the effort. [place] lifts or holds trunk or limbs and provides more than half the effort. 7-Diyesgrkd-ijxudw does ALL the effort. Patient does none of the effort to complete the activity. Or, the assistance of 2 or more helpers is required for the patient to complete the activity. If activity was not attempted, code reason: 7-Patient Refused. 9-Not Applicable-not attempted and the patient did not perform the activity before the current illness, exacerbation or injury. 10-Not Attempted due to Environmental Limitations-(lack of equipment, weather restraints, etc.). 88-Not Attempted due to Medical Conditions or Safety Concerns. Roll Left & Right (QC): 6 Sit to Lying (QC): 6 Lying to Sitting/Side of Bed(Q: 6 Sit to Stand (QC): 4 Chair/Rbm-ix-Myyxr Xfer(QC): 4 Gait Training Distance: 150'x2 Walk 10 feet (QC): 4 Walk 50 ft with 2 Turns(QC): 4 Walk 150 ft (QC): 4 Gait Persons Needed: 1 Gait Assistive Device: FWW CGA, extremely slow but steady ambulation Exercises Standing: Heel/toe raises, Mini squats Standing Reps: 15 Treatments bed mobility and transfers, ambulation, LE strengthening Assessment Current Status: Fair Progress improving endurance, very slow mobility PT Short Term Goals Short Term Goals Time Frame: Feb 23, 2021 Roll Left & Right: 6 Sit to lyin Lying to sitting on side of be: 6 Sit to stand: 4 (SBA) Chair/pif-oa-ofskf transfer: 4 (SBA) Walk 10 feet: 4 (SBA) Walk 50 feet with two turns: 4 (SBA) PT Quality Control Representative Goals Senior Living Goals PT Senior Living Goals Time Frame: Mar 09, 2021 Roll Left & Right (QC): 6 Sit to Lying (QC): 6 Lying-Sitting on Side/Bed(QC): 6 Sit to Stand (QC): 6 Chair/Pxe-lu-Dhuut Xfer(QC): 6 Toilet Transfer (QC): 6 Car Transfer (QC): 5 Does the Patient Walk: Yes Walk 10 feet (QC): 6 Walk 50ft with 2 Turns (QC): 6 Walk 150 ft (QC): 6 Walking 10ft on Uneven Surface: 6 1 Step (curb) (QC): 4 4 Steps (QC): 4 12 Steps (QC): 88 Picking up an Object (QC): 4 Wheel 50 feet with 2 turns (QC: 9 Wheel 150 feet: 9 PT Plan Problem List Problem List: Activity Tolerance, Functional Strength, Safety, Balance, Gait, Transfer, Bed Mobility, ROM Treatment/Plan Treatment Plan: Continue Plan of Care Treatment Plan: Bed Mobility, Education, Functional Activity Bull, Functional Strength, Group Therapy, Gait, Safety, Therapeutic Exercise, Transfers Treatment Duration: Mar 09, 2021 Frequency: At least 5 of 7 days/Wk (IRF) Estimated Hrs Per Day: 1.5 hours per day Patient and/or Family Agrees t: Yes Safety Risks/Education Patient Education: Gait Training, Transfer Techniques, Correct Positioning, Safety Issues Teaching Recipient: Patient Teaching Methods: Demonstration, Discussion Response to Teaching: Reinforcement Needed Time/GCodes Time In: 1035 Time Out: 1105 Total Billed Treatment Time: 30 Total Billed Treatment 1 visit EX 10' GT 20' CHARLY MCKEON PT Feb 18, 2021 11:07
[2021-02-18 12:18] VITALS: BP 147/64
[2021-02-18 20:00] VITALS: BP 126/63
[2021-02-18] MEDS: MELATONIN 10 MG TABLET PO SCH (21:05)
[2021-02-18] MEDS: PSYLLIUM POWDER (METAMUCIL) 5.8 GM PACKET PO SCH (21:05)
[2021-02-19] MEDS: KCL 20 MEQ TAB (K-DUR) PO SCH (06:37)
[2021-02-19] MEDS: MULTIVIT W/MINERALS TAB (THERAGRAN M) PO SCH (06:37)
--- NOTE | 2021-02-19 06:43 | PM&R Progress Note ---
Subjective HPI/CC On Admission Date Seen by Provider: Feb 19, 2021 Time Seen by Provider: 13:00 Subjective/Events-last exam 02/19/21: No major issues Dramatically improved Right hand much improved Check meds and labs 02/18/2021: Patient doing really well Pain is controlled Discontinue the Hep-Lock since no more nausea or vomiting Check meds and labs Irritable bowel management 02/17/2021: Patient doing really well today Had a vomiting episode while in therapy so started gentle IV fluids and Zofran IV Blood pressure stable Headaches are daily Able to participate Review of Systems General: Fatigue, Malaise Neurological: Weakness, Incoordination Objective Exam Vital Signs Vital Signs Date Time Temp Pulse Resp B/P (MAP) Pulse Ox O2 Delivery O2 Flow Rate FiO2 02/19/21 20:15 96 Room Air 02/19/21 19:49 36.8 73 18 136/63 (87) Capillary Refill : General Appearance: No Apparent Distress, WD/WN, Chronically ill HEENT: PERRL/EOMI, Normal ENT Inspection, Pharynx Normal Neck: Full Range of Motion, Normal Inspection, Non Tender, Supple, Carotid Bruit Respiratory: Chest Non Tender, Lungs Clear, Normal Breath Sounds, No Accessory Muscle Use, No Respiratory Distress Cardiovascular: Regular Rate, Rhythm, No Edema, No Gallop, No JVD, No Murmur, Normal Peripheral Pulses Gastrointestinal: Normal Bowel Sounds, No Organomegaly, No Pulsatile Mass, Non Tender, Soft Back: Normal Inspection, No CVA Tenderness, No Vertebral Tenderness Extremity: Normal Capillary Refill, Normal Inspection, Normal Range of Motion, Non Tender, No Calf Tenderness, No Pedal Edema Neurologic/Psychiatric: Alert, Oriented x3, Normal Mood/Affect, service 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 FIM Transfers Therapy Code Descriptions/Definitions Functional [place] Measure: 0=Not Assessed/NA 4=Minimal Assistance 1=Total Assistance 5=Supervision or Setup 2=Maximal Assistance 6=Modified [place] 3=Moderate Assistance 7=Complete IndependenceSCALE: Activities may be completed with or without assistive devices. 2-Sszgkvopwr-pcvlotm completes the activity by him/herself with no assistance from a helper. 5-Set-up or Clean-up Assistance-helper sets up or cleans up; patient completes activity. [place] assists only prior to or following the activity. 4-Supervision or Touching Assistance-helper provides verbal cues and/or touching/steadying and/or contact guard assistance as patient completes activity. Assistance may be provided throughout the activity or intermittently. 3-Partial/Moderate Assistance-helper does LESS THAN HALF the effort. [place] li fts, holds or supports trunk or limbs, but provides less than half the effort. 2-Substantial/Maximal Assistance-helper does MORE THAN HALF the effort. [place] lifts or holds trunk or limbs and provides more than half the effort. 3-Zvqkxrpdz-dpuent does ALL the effort. Patient does none of the effort to complete the activity. Or, the assistance of 2 or more helpers is required for the patient to complete the activity. If activity was not attempted, code reason: 7-Patient Refused. 9-Not Applicable-not attempted and the patient did not perform the activity before the current illness, exacerbation or injury. 10-Not Attempted due to Environmental Limitations-(lack of equipment, weather restraints, etc.). 88-Not Attempted due to Medical Conditions or Safety Concerns. Roll Left to Right (QC): 6 Sit to Lying (QC): 6 Sit to Stand (QC): 4 Chair/Xmb-qf-Xsgrr Xfer(QC): 4 Car Transfer (QC): 3 Gait Training Does the Patient Walk?: Yes Distance: 150'x2 Walk 10 feet (QC): 4 Walk 50 ft with 2 Turns(QC): 4 Walk 150 ft (QC): 4 Walking 10ft/uneven surface-QC: 4 Gait Persons Needed: 1 Gait Assistive Device: FWW Wheelchair Training Does the Pt Use a Wheelchair?: Yes Distance: 120' Wheel 50 ft with 2 turns (QC): 4 Wheel 150 ft (QC): 88 Type of Wheelchair: Manual Stair Training #of Steps: 1 1 Step (curb) (QC): 4 4 Steps (QC): 88 12 Steps (QC): 88 Balance Picking up an Object (QC): 4 ADL-Treatment Eating (QC): 5 (Per pt performed w/ set up, assistance opening containers.) Oral Hygiene (QC): 5 (Pt performed task w/ set up while setting in w/c sink side. ) Shower/Bathe Self (QC): 4 (Pt washed all parts, was CGA when standing to wash backside and brii area. ) Upper Body Dressing (QC): 5 (Pt required set up. ) Lower Body Dressing (QC): 3 (Pt requried Min assist for pant hike when standing.) On/Off Footwear (QC): 4 (Pt requried SBA while seated in w/c. ) Toileting Hygiene (QC): 4 (CGA in stand. Pt able to manage clothing and hygiene.) Assessment/Plan Assessment and Plan Assess & Plan/Chief Complaint SeeAssessment: VA with right-sided weakness Hypertension Hyperlipidemia Chronic kidney disease IBS Nausea and vomiting on 02/17/2021 requiring IV Zofran and IV fluids Plan: Rehab protocol Aggressive therapy Home meds Metamucil at night 02/17/2021: Nausea and vomiting management Monitor closely 02/18/2021: Discontinue IV Supportive care 02/19/21: Dramatic improvement Fall risk (1) Pulmonary hypertension Assessment & Plan: Exact etiology unclear. She is a lifelong non-smoker although did have a significant secondhand exposure to cigarette smoking. She has no history of pulmonary disease. She does not have any pulmonary symptoms. I would suggest that we obtain a follow-up echocardiogram in 3-6 months. I do not see any indication for an extensive evaluation for secondary causes of pulmonary hypertension at this point in time. (2) Left middle cerebral artery stroke Assessment & Plan: This was initially thought to be due to atheroembolic disease from the carotid arteries that may have embolized. However, her invasive carotid angiogram did not show significant carotid stenosis. This does not exclude atheroembolic disease. However, this also raises a question of possible cardiac source of embolism. Once she recovers from the stroke and is discharged home, we may want to consider a 30-day event monitor to screen for paroxysmal atrial fibrillation. In the interim, she should continue on aspirin, clopidogrel and statin medication (3) Thoracic aortic aneurysm without rupture Assessment & Plan: This was an incidental finding on her echocardiogram at the outside facility. This is in a mild range. This will need to be followed longitudinally. (4) Atherosclerosis of both carotid arteries Assessment & Plan: As above, she was found to have bilateral atherosclerosis with no significant stenosis. Continue aspirin and statin medication. (5) Primary hypertension Assessment & Plan: Blood pressures are intermittently elevated. She is now out of the acute phase of the stroke. If her blood pressures remain elevated, she may need some adjustment to her antihypertensive medication. (6) Mixed hyperlipidemia Assessment & Plan: She had no previous history of hyperlipidemia but in light of the stroke and carotid atherosclerosis, she should continue statin medication LAZ DIALLO DO Feb 19, 2021 06:43
[2021-02-19 07:30] VITALS: BP 118/56
[2021-02-19] MEDS: ASPIRIN 81 MG CHEW (CHILDREN'S ASA) PO SCH (09:22)
[2021-02-19] MEDS: lisINopril 40 MG (PRINIVIL) TABLET PO SCH (09:22)
[2021-02-19] MEDS: CLOPIDOGREL 75 MG (PLAVIX) TABLET PO SCH (09:22)
[2021-02-19] MEDS: VITAMIN D3 25 MCG (1,000 UNITS) TABLET PO SCH (09:22)
[2021-02-19] MEDS: ASCORBIC ACID (VIT C) 500 MG TABLET PO SCH (09:22)
[2021-02-19] MEDS: DOCUSATE SODIUM 100 MG (COLACE) CAP PO SCH ×2 (09:23→21:10)
[2021-02-19] MEDS: polyethylene glycoL POWDER 17 GM (MIRALAX) PACK PO SCH ×2 (09:23→21:10)
[2021-02-19] MEDS: SENNA W/DOCUSATE (SENOKOT S) TABLET PO SCH ×2 (09:23→21:10)
[2021-02-19 19:49] VITALS: BP 136/63
[2021-02-19] MEDS: PSYLLIUM POWDER (METAMUCIL) 5.8 GM PACKET PO SCH (21:10)
[2021-02-19] MEDS: MELATONIN 10 MG TABLET PO SCH (21:20)
[2021-02-20 06:02] LABS: BASOPHILS % (AUTO) 0 % (0-10); EOSINOPHILS # (AUTO) 0.3 10^3/uL (0.0-0.3); EOSINOPHILS % (AUTO) 4 % (0-10); HEMATOCRIT 31 % (35-52); HEMOGLOBIN 10.4 g/dL (11.5-16.0); LYMPHOCYTES # (AUTO) 2.4 10^3/uL (1.0-4.0); LYMPHOCYTES % (AUTO) 37 % (12-44); MEAN CORPUSCULAR HEMOGLOBIN 31 pg (25-34); MEAN CORPUSCULAR HGB CONC 34 g/dL (32-36); MEAN CORPUSCULAR VOLUME 91 fL (80-99); MEAN PLATELET VOLUME 11.2 fL (9.0-12.2); MONOCYTES # (AUTO) 0.6 10^3/uL (0.0-1.0); MONOCYTES % (AUTO) 9 % (0-12); NEUTROPHILS # (AUTO) 3.3 10^3/uL (1.8-7.8); NEUTROPHILS % (AUTO) 50 % (42-75); PLATELET COUNT 211 10^3/uL (130-400); WHITE BLOOD COUNT 6.7 10^3/uL (4.3-11.0)
[2021-02-20 06:13] LABS: ALBUMIN 3.3 GM/DL (3.2-4.5); POTASSIUM 3.3 MMOL/L (3.6-5.0)
[2021-02-20 06:17] LABS: BILIRUBIN,TOTAL 0.6 MG/DL (0.1-1.0)
[2021-02-20 06:19] LABS: CREATININE SERUM 0.96 MG/DL (0.60-1.30)
[2021-02-20] MEDS: KCL 20 MEQ TAB (K-DUR) PO SCH (06:47)
[2021-02-20] MEDS: MULTIVIT W/MINERALS TAB (THERAGRAN M) PO SCH (06:47)
[2021-02-20 07:40] VITALS: BP 117/54
[2021-02-20] MEDS: ASPIRIN 81 MG CHEW (CHILDREN'S ASA) PO SCH (07:52)
[2021-02-20] MEDS: CLOPIDOGREL 75 MG (PLAVIX) TABLET PO SCH (07:52)
[2021-02-20] MEDS: lisINopril 40 MG (PRINIVIL) TABLET PO SCH (07:52)
[2021-02-20] MEDS: VITAMIN D3 25 MCG (1,000 UNITS) TABLET PO SCH (07:53)
[2021-02-20] MEDS: ASCORBIC ACID (VIT C) 500 MG TABLET PO SCH (07:53)
[2021-02-20] MEDS ORDERED: KCL 10 MEQ TAB (MICRO K) PO ONE (09:00)
--- NOTE | 2021-02-20 09:02 | PM&R Progress Note ---
Subjective HPI/CC On Admission Date Seen by Provider: Feb 20, 2021 Time Seen by Provider: 09:00 Subjective/Events-last exam 02/20/21: Patient doing well Potassium 3.3 No pain reported Functioning well Participating well 02/19/21: No major issues Dramatically improved Right hand much improved Check meds and labs 02/18/2021: Patient doing really well Pain is controlled Discontinue the Hep-Lock since no more nausea or vomiting Check meds and labs Irritable bowel management 02/17/2021: Patient doing really well today Had a vomiting episode while in therapy so started gentle IV fluids and Zofran IV Blood pressure stable Headaches are daily Able to participate Review of Systems General: Fatigue Neurological: Weakness, Incoordination Objective Exam Vital Signs Vital Signs Date Time Temp Pulse Resp B/P (MAP) Pulse Ox O2 Delivery O2 Flow Rate FiO2 02/20/21 21:34 Room Air 02/20/21 20:11 36.6 70 16 132/62 (85) 97 Capillary Refill : General Appearance: No Apparent Distress, WD/WN, Chronically ill HEENT: PERRL/EOMI, Normal ENT Inspection, Pharynx Normal Neck: Full Range of Motion, Normal Inspection, Non Tender, Supple, Carotid Bruit Respiratory: Chest Non Tender, Lungs Clear, Normal Breath Sounds, No Accessory Muscle Use, No Respiratory Distress Cardiovascular: Regular Rate, Rhythm, No Edema, No Gallop, No JVD, No Murmur, Normal Peripheral Pulses Gastrointestinal: Normal Bowel Sounds, No Organomegaly, No Pulsatile Mass, Non Tender, Soft Back: Normal Inspection, No CVA Tenderness, No Vertebral Tenderness Extremity: Normal Capillary Refill, Normal Inspection, Normal Range of Motion, Non Tender, No Calf Tenderness, No Pedal Edema Neurologic/Psychiatric: Alert, Oriented x3, Normal Mood/Affect, corner block cutter II-XII Norm as Tested, Abnormal Gait, Motor Weakness (Right upper extremity weakness 3/5) Skin: Normal Color, Warm/Dry Lymphatic: No Adenopathy Results/Procedures Lab Laboratory Tests 02/20/21 05:15 Patient resulted labs reviewed. FIM Transfers Therapy Code Descriptions/Definitions Functional [place] Measure: 0=Not Assessed/NA 4=Minimal Assistance 1=Total Assistance 5=Supervision or Setup 2=Maximal Assistance 6=Modified [place] 3=Moderate Assistance 7=Complete IndependenceSCALE: Activities may be completed with or without assistive devices. 7-Exmnipkhwj-iaqdenf completes the activity by him/herself with no assistance from a helper. 5-Set-up or Clean-up Assistance-helper sets up or cleans up; patient completes activity. [place] assists only prior to or following the activity. 4-Supervision or Touching Assistance-helper provides verbal cues and/or touching/steadying and/or contact guard assistance as patient completes activity. Assistance may be provided throughout the activity or intermittently. 3-Partial/Moderate Assistance-helper does LESS THAN HALF the effort. [place] lifts, holds or supports trunk or limbs, but provides less than half the effort. 2-Substantial/Maximal Assistance-helper does MORE THAN HALF the effort. [place] lifts or holds trunk or limbs and provides more than half the effort. 6-Kuvezdyhx-tlywqy does ALL the effort. Patient does none of the effort to complete the activity. Or, the assistance of 2 or more helpers is required for the patient to complete the activity. If activity was not attempted, code reason: 7-Patient Refused. 9-Not Applicable-not attempted and the patient did not perform the activity before the current illness, exacerbation or injury. 10-Not Attempted due to Environmental Limitations-(lack of equipment, weather restraints, etc.). 88-Not Attempted due to Medical Conditions or Safety Concerns. Roll Left to Right (QC): 6 Sit to Lying (QC): 6 Sit to Stand (QC): 4 Chair/Axn-vf-Qrkjs Xfer(QC): 4 Car Transfer (QC): 3 Gait Training Does the Patient Walk?: Yes Distance: 150'x2 Walk 10 feet (QC): 4 Walk 50 ft with 2 Turns(QC): 4 Walk 150 ft (QC): 4 Walking 10ft/uneven surface-QC: 4 Gait Persons Needed: 1 Gait Assistive Device: FWW Wheelchair Training Does the Pt Use a Wheelchair?: Yes Distance: 120' Wheel 50 ft with 2 turns (QC): 4 Wheel 150 ft (QC): 88 Type of Wheelchair: Manual Stair Training #of Steps: 1 1 Step (curb) (QC): 4 4 Steps (QC): 88 12 Steps (QC): 88 Balance Picking up an Object (QC): 4 ADL-Treatment Eating (QC): 5 (Per pt performed w/ set up, assistance opening containers.) Oral Hygiene (QC): 5 (Pt performed task w/ set up while setting in w/c sink side. ) Shower/Bathe Self (QC): 4 (Pt washed all parts, was CGA when standing to wash backside and brii area. ) Upper Body Dressing (QC): 5 (Pt required set up. ) Lower Body Dressing (QC): 3 (Pt requried Min assist for pant hike when standing.) On/Off Footwear (QC): 4 (Pt requried SBA while seated in w/c. ) Toileting Hygiene (QC): 4 (CGA in stand. Pt able to manage clothing and hygiene.) Assessment/Plan Assessment and Plan Assess & Plan/Chief Complaint SeeAssessment: VA with right-sided weakness Hypertension Hyperlipidemia Chronic kidney disease IBS Nausea and vomiting on 02/17/2021 requiring IV Zofran and IV fluids Plan: Rehab protocol Aggressive therapy Home meds Metamucil at night 02/17/2021: Nausea and vomiting management Monitor closely 02/18/2021: Discontinue IV Supportive care 02/19/21: Dramatic improvement Fall risk 02/20/21: Doing well Increased independence (1) Pulmonary hypertension Assessment & Plan: Exact etiology unclear. She is a lifelong non-smoker al though did have a significant secondhand exposure to cigarette smoking. She has no history of pulmonary disease. She does not have any pulmonary symptoms. I would suggest that we obtain a follow-up echocardiogram in 3-6 months. I do not see any indication for an extensive evaluation for secondary causes of pulmonary hypertension at this point in time. (2) Left middle cerebral artery stroke Assessment & Plan: This was initially thought to be due to atheroembolic disease from the carotid arteries that may have embolized. However, her invasive carotid angiogram did not show significant carotid stenosis. This does not exclude atheroembolic disease. However, this also raises a question of possible cardiac source of embolism. Once she recovers from the stroke and is discharged home, we may want to consider a 30-day event monitor to screen for paroxysmal atrial fibrillation. In the interim, she should continue on aspirin, clopidogrel and statin medication (3) Thoracic aortic aneurysm without rupture Assessment & Plan: This was an incidental finding on her echocardiogram at the outside facility. This is in a mild range. This will need to be followed longitudinally. (4) Atherosclerosis of both carotid arteries Assessment & Plan: As above, she was found to have bilateral atherosclerosis with no significant stenosis. Continue aspirin and statin medication. (5) Primary hypertension Assessment & Plan: Blood pressures are intermittently elevated. She is now out of the acute phase of the stroke. If her blood pressures remain elevated, she may need some adjustment to her antihypertensive medication. (6) Mixed hyperlipidemia Assessment & Plan: She had no previous history of hyperlipidemia but in light of the stroke and carotid atherosclerosis, she should continue statin medication LAZ DIALLO DO Feb 20, 2021 09:02
--- NOTE | 2021-02-20 09:08 | Occupational Ther Daily Note ---
OT Current Status-Daily Note Subjective Pt was seated in chair upon OT arrival. Pt stated she wanted a shower and wanted to get ready for the day. Pt agreed to tx session. Mental Status/Objective Patient Orientation: Person, Place, Time, Situation ADL-Treatment Therapy Code Descriptions/Definitions Functional [place] Measure: 0=Not Assessed/NA 4=Minimal Assistance 1=Total Assistance 5=Supervision or Setup 2=Maximal Assistance 6=Modified [place] 3=Moderate Assistance 7=Complete IndependenceSCALE: Activities may be completed with or without assistive devices. 4-Szcwtarocg-daqohog completes the activity by him/herself with no assistance from a helper. 5-Set-up or Clean-up Assistance-helper sets up or cleans up; patient completes activity. [place] assists only prior to or following the activity. 4-Supervision or Touching Assistance-helper provides verbal cues and/or touching/steadying and/or contact guard assistance as patient completes activity. Assistance may be provided throughout the activity or intermittently. 3-Partial/Moderate Assistance-helper does LESS THAN HALF the effort. [place] lifts, holds or supports trunk or limbs, but provides less than half the effort. 2-Substantial/Maximal Assistance-helper does MORE THAN HALF the effort. [place] lifts or holds trunk or limbs and provides more than half the effort. 0-Rpbqnhdjw-pdusbi does ALL the effort. Patient does none of the effort to complete the activity. Or, the assistance of 2 or more helpers is required for the patient to complete the activity. If activity was not attempted, code reason: 7-Patient Refused. 9-Not Applicable-not attempted and the patient did not perform the activity before the current illness, exacerbation or injury. 10-Not Attempted due to Environmental Limitations-(lack of equipment, weather restraints, etc.). 88-Not Attempted due to Medical Conditions or Safety Concerns. Oral Hygiene (QC): 6 (Pt performed IND while seated in w/c sink side. ) Shower/Bathe Self (QC): 4 (Pt was able to wash all parts, requiring CGA when standing to wash backside and brii area. ) Upper Body Dressing (QC): 5 (Pt requried set up. ) Lower Body Dressing (QC): 4 (Pt required CGA when standing for pant hike. ) On/Off Footwear: 5 (Pt required set up. ) Toileting Hygiene (QC): 4 (Pt required CGA when standing for task to deedee/doff LBD. ) Toilet Transfer (QC): 4 (Pt requried CGA for safety during task.) Other Treatment Pt was seated in chair upon OT arrival. Pt stated she wanted a shower and wanted to get ready for the day. Pt agreed to tx session. Pt performed functional mobility w/ FWW at [facility] from chair to toilet. Pt performed toileting task, see above QC's. Pt performed functional mobility w/ FWW at [facility] from toilet to SC. Pt performed UBD, LBD, and shower tasks, see above QC's. Pt then performed oral hygiene and grooming sink side while seated in w/c for energy conservation, see above QC. Pt performed w/c management from room to laundry room to wash garments w/ x2 rest breaks. Pt stood to washer at [facility] to throw dirty linens into washer and start washer load to support IADL for function. Pt performed w/c management from laundry room to therapy gym w/ x2 rest breaks. Pt then participated in arm bike exercise at 10 watt resistance for 10minutes while seated in w/c requiring x4 rest breaks for strength and endurance for UBE's in ADL function. Pt was taken back to room. Pt moves at a very slow and steady pace during entire tx session, requiring several rest breaks. Post tx session, pt was seated in chair, call light within reach, and all needs met. Education OT Patient Education: Correct positioning, Energy conservation, Modified ADL techniques, Progress toward Goal/Update tx plan, Purpose of tx/functional activities, Safety issues, Transfer techniques, W/C management Teaching Recipient: Patient Teaching Methods: Discussion Response to Teaching: Verbalize Understanding OT Short Term Goals Short Term Goals Time Frame: Mar 01, 2021 Toileting hygiene: 45 Shower/bathe self: 4 Upper body dressin Lower body dressin Putting on/taking off footwear: 4 OT Cellophane Casting Machine Repairer Goals Detention Goals Time Frame: Mar 10, 2021 Eating (QC): 6 Oral Hygiene (QC): 6 Toileting Hygiene (QC): 6 Shower/Bathe Self (QC): 6 Upper Body Dressing (QC): 6 Lower Body Dressing (QC): 6 On/Off Footwear (QC): 6 Additional Goals: 1-Demonstrate ADL Tasks, 2-Verbalize Understanding, 3-ImproveStrength/Bull 1=Demonstrate adherence to instructed precautions during ADL tasks. 2=Patient will verbalize/demonstrate understanding of assistive devices/modifications for ADL. 3=Patient will improve strength/tolerance for activity to enable patient to perform ADL's. OT Education/Plan Problem List/Assessment Assessment: Decreased Activ Tolerance, Decreased UE Strength, Impaired Coordination, Impaired Funct Balance, Impaired I ADL's, Impaired Self-Care Skills Discharge Recommendations Plan/Recommendations: Continue POC Treatment Plan/Plan of Care Patient would benefit from OT for education, treatment and training to promote independence in ADL's, mobility, safety and/or upper extremity function for ADL's. Plan of Care: ADL Retraining, Functional Mobility, Group Exercise/Act as Ind, UE Funct Exercise/Act Treatment Duration: Mar 10, 2021 Frequency: At least 5 of 7 days/Wk (IRF) Estimated Hrs Per Day: 1.5 hours per day Agreement: Yes Rehab Potential: Fair Time/GCodes Start Time: 08:00 Stop Time: 09:30 Total Time Billed (hr/min): 90 Billed Treatment Time 1 Visit, ADL 4 (60'), EX 2 (30') MAGDIEL GREER OT Feb 20, 2021 09:08
[2021-02-20] MEDS: DOCUSATE SODIUM 100 MG (COLACE) CAP PO SCH ×2 (09:29→21:22)
[2021-02-20] MEDS: polyethylene glycoL POWDER 17 GM (MIRALAX) PACK PO SCH ×2 (09:30→21:22)
[2021-02-20] MEDS: PSYLLIUM POWDER (METAMUCIL) 5.8 GM PACKET PO SCH ×2 (09:30→21:22)
[2021-02-20] MEDS: SENNA W/DOCUSATE (SENOKOT S) TABLET PO SCH ×2 (09:30→21:22)
[2021-02-20] MEDS ORDERED: KCL 10 MEQ TAB (MICRO K) PO NR (11:45)
--- NOTE | 2021-02-20 11:59 | Physical Therapy Daily Note ---
PT Daily Note-Current Subjective Pt in recliner upon arrival and agrees to tx. Pt has no c/o pain at this time. Pt states "I'm entirely worn out from my other therapy today". Mental Status Patient Orientation: Person, Place, Time, Situation Transfers SCALE: Activities may be completed with or without assistive devices. 0-Vqxzyjrdev-vfonmcg completes the activity by him/herself with no assistance from a helper. 5-Set-up or Clean-up Assistance-helper sets up or cleans up; patient completes activity. [place] assists only prior to or following the activity. 4-Supervision or Touching Assistance-helper provides verbal cues and/or touching/steadying and/or contact guard assistance as patient completes activity. Assistance may be provided throughout the activity or intermittently. 3-Partial/Moderate Assistance-helper does LESS THAN HALF the effort. [place] lifts, holds or supports trunk or limbs, but provides less than half the effort. 2-Substantial/Maximal Assistance-helper does MORE THAN HALF the effort. [place] lifts or holds trunk or limbs and provides more than half the effort. 9-Fybqajrst-nahviu does ALL the effort. Patient does none of the effort to co mplete the activity. Or, the assistance of 2 or more helpers is required for the patient to complete the activity. If activity was not attempted, code reason: 7-Patient Refused. 9-Not Applicable-not attempted and the patient did not perform the activity before the current illness, exacerbation or injury. 10-Not Attempted due to Environmental Limitations-(lack of equipment, weather restraints, etc.). 88-Not Attempted due to Medical Conditions or Safety Concerns. Sit to Stand (QC): 3 Cristopher/CGA sit to stand Gait Training Does the Patient Walk?: Yes Distance: 100', 75' x2 Walk 10 feet (QC): 4 Walk 50 ft with 2 Turns(QC): 4 Gait Persons Needed: 1 Gait Assistive Device: FWW Pt has very slow, but steady gait. Pt tends to shuffle feet and has flexed posture. VC given for posturing and flex B LE. Exercises Standing: Hip Abduction, Heel/toe raises, Marching, Mini squats, Sit to Stand, Step-ups Standing Reps: 10 NuStep Minutes: 10 NuStep Workload: 3 Treatments Pt sit to stand from recliner Cristopher and amb to therapy gym. Pt completes NuStep at [facility] of 3 for 10 mins, followed by standing ex in // bars. Pt requires rest breaks between each exercise. Pt then amb back to room and request to use bathroom. Pt able to doff/don pants and clean self CGA. Pt washes hands, standing unsupported w/ CGA and has no LOB. Pt then amb to recliner in room and was left with all needs met, call light in hand. Assessment Current Status: Good Progress Pt fatigues quickly and requires frequent rest breaks. Pt overall increasing endurance, strength, and mobility. PT Short Term Goals Short Term Goals Time Frame: Feb 23, 2021 Roll Left & Right: 6 Sit to lyin Lying to sitting on side of be: 6 Sit to stand: 4 (SBA) Chair/moa-ba-uxygc transfer: 4 (SBA) Walk 10 feet: 4 (SBA) Walk 50 feet with two turns: 4 (SBA) PT Electricity Trader Goals Electricity Trader Goals PT Nursing Home Goals Time Frame: Mar 09, 2021 Roll Left & Right (QC): 6 Sit to Lying (QC): 6 Lying-Sitting on Side/Bed(QC): 6 Sit to Stand (QC): 6 Chair/Khn-cj-Dcqze Xfer(QC): 6 Toilet Transfer (QC): 6 Car Transfer (QC): 5 Does the Patient Walk: Yes Walk 10 feet (QC): 6 Walk 50ft with 2 Turns (QC): 6 Walk 150 ft (QC): 6 Walking 10ft on Uneven Surface: 6 1 Step (curb) (QC): 4 4 Steps (QC): 4 12 Steps (QC): 88 Picking up an Object (QC): 4 Wheel 50 feet with 2 turns (QC: 9 Wheel 150 feet: 9 PT Plan Treatment/Plan Treatment Plan: Continue Plan of Care Treatment Plan: Bed Mobility, Education, Functional Activity Bull, Functional Strength, Group Therapy, Gait, Safety, Therapeutic Exercise, Transfers Treatment Duration: Mar 09, 2021 Frequency: At least 5 of 7 days/Wk (IRF) Estimated Hrs Per Day: 1.5 hours per day Patient and/or Family Agrees t: Yes Time/GCodes Time In: 1100 Time Out: 1200 Total Billed Treatment Time: 60 Total Billed Treatment 1, EX x2, GT, FA ELAINA LY FILTRATION PLANT MECHANIC Feb 20, 2021 11:59
[2021-02-20 12:00] VITALS: BP 115/56
--- NOTE | 2021-02-20 14:37 | Physical Therapy Daily Note ---
PT Daily Note-Current Subjective Pt in recliner with family in room upon arrival. Pt has no c/o pain at this time. Transfers SCALE: Activities may be completed with or without assistive devices. 9-Dibnqefbil-ijcagxl completes the activity by him/herself with no assistance from a helper. 5-Set-up or Clean-up Assistance-helper sets up or cleans up; patient completes activity. [place] assists only prior to or following the activity. 4-Supervision or Touching Assistance-helper provides verbal cues and/or touching/steadying and/or contact guard assistance as patient completes activity. Assistance may be provided throughout the activity or intermittently. 3-Partial/Moderate Assistance-helper does LESS THAN HALF the effort. [place] lifts, holds or supports trunk or limbs, but provides less than half the effort. 2-Substantial/Maximal Assistance-helper does MORE THAN HALF the effort. [place] lifts or holds trunk or limbs and provides more than half the effort. 5-Mzstwrpuz-cazlsw does ALL the effort. Patient does none of the effort to complete the activity. Or, the assistance of 2 or more helpers is required for the patient to complete the activity. If activity was not attempted, code reason: 7-Patient Refused. 9-Not Applicable-not attempted and the patient did not perform the activity before the current illness, exacerbation or injury. 10-Not Attempted due to Environmental Limitations-(lack of equipment, weather restraints, etc.). 88-Not Attempted due to Medical Conditions or Safety Concerns. Treatments Pt sit to stand from recliner CGA and amb to bathroom. Pt dons/doffs pants and cleans self CGA Pt amb 150' CGA to therapy gym and completes static standing balance training on AirEx while supported by R UE then L UE for a total of 4 minutes CGA. Pt then competes dynamic standing balance activity on level surface, tossing rings w/ R UE then L UE and unsupported from UE and CGA. pt amb back to room and lays down in bed, left with all needs met, call light in hand. Assessment Current Status: Good Progress Pt increasing strength, endurance, and balance PT Short Term Goals Short Term Goals Time Frame: Feb 23, 2021 Roll Left & Right: 6 Sit to lyin Lying to sitting on side of be: 6 Sit to stand: 4 (SBA) Chair/gex-sj-maxfh transfer: 4 (SBA) Walk 10 feet: 4 (SBA) Walk 50 feet with two turns: 4 (SBA) PT Partner Integration Planner Goals Partner Integration Planner Goals PT Jail Goals Time Frame: Mar 09, 2021 Roll Left & Right (QC): 6 Sit to Lying (QC): 6 Lying-Sitting on Side/Bed(QC): 6 Sit to Stand (QC): 6 Chair/Kjr-sn-Ykfxg Xfer(QC): 6 Toilet Transfer (QC): 6 Car Transfer (QC): 5 Does the Patient Walk: Yes Walk 10 feet (QC): 6 Walk 50ft with 2 Turns (QC): 6 Walk 150 ft (QC): 6 Walking 10ft on Uneven Surface: 6 1 Step (curb) (QC): 4 4 Steps (QC): 4 12 Steps (QC): 88 Picking up an Object (QC): 4 Wheel 50 feet with 2 turns (QC: 9 Wheel 150 feet: 9 PT Plan Treatment/Plan Treatment Plan: Continue Plan of Care Treatment Plan: Bed Mobility, Education, Functional Activity Bull, Functional Strength, Group Therapy, Gait, Safety, Therapeutic Exercise, Transfers Treatment Duration: Mar 09, 2021 Frequency: At least 5 of 7 days/Wk (IRF) Estimated Hrs Per Day: 1.5 hours per day Patient and/or Family Agrees t: Yes Time/GCodes Time In: 1400 Time Out: 1430 Total Billed Treatment Time: 30 Total Billed Treatment 1, RADHA VOGEL [place] PUBLICITY MANAGER Feb 20, 2021 14:37
[2021-02-20 20:11] VITALS: BP 132/62
[2021-02-20] MEDS: MELATONIN 10 MG TABLET PO SCH ×2 (20:57→21:00)
[2021-02-21 07:37] VITALS: BP 118/56
[2021-02-21] MEDS: KCL 20 MEQ TAB (K-DUR) PO SCH (07:46)
[2021-02-21] MEDS: KCL 10 MEQ TAB (MICRO K) PO SCH (07:46)
[2021-02-21] MEDS: MULTIVIT W/MINERALS TAB (THERAGRAN M) PO SCH (07:46)
--- NOTE | 2021-02-21 08:46 | Occupational Ther Daily Note ---
OT Current Status-Daily Note Subjective Pt was seated in chair upon OT arrival. Pt stated she wanted to get ready for the day. Pt agreed to tx session. Mental Status/Objective Patient Orientation: Person, Place, Time, Situation ADL-Treatment Therapy Code Descriptions/Definitions Functional [place] Measure: 0=Not Assessed/NA 4=Minimal Assistance 1=Total Assistance 5=Supervision or Setup 2=Maximal Assistance 6=Modified [place] 3=Moderate Assistance 7=Complete IndependenceSCALE: Activities may be completed with or without assistive devices. 7-Xkhhlcehmw-ucsodxi completes the activity by him/herself with no assistance from a helper. 5-Set-up or Clean-up Assistance-helper sets up or cleans up; patient completes activity. [place] assists only prior to or following the activity. 4-Supervision or Touching Assistance-helper provides verbal cues and/or touching/steadying and/or contact guard assistance as patient completes activity. Assistance may be provided throughout the activity or intermittently. 3-Partial/Moderate Assistance-helper does LESS THAN HALF the effort. [place] lifts, holds or supports trunk or limbs, but provides less than half the effort. 2-Substantial/Maximal Assistance-helper does MORE THAN HALF the effort. [place] lifts or holds trunk or limbs and provides more than half the effort. 6-Cjadcafwq-kfbisz does ALL the effort. Patient does none of the effort to complete the activity. Or, the assistance of 2 or more helpers is required for the patient to complete the activity. If activity was not attempted, code reason: 7-Patient Refused. 9-Not Applicable-not attempted and the patient did not perform the activity before the current illness, exacerbation or injury. 10-Not Attempted due to Environmental Limitations-(lack of equipment, weather restraints, etc.). 88-Not Attempted due to Medical Conditions or Safety Concerns. Oral Hygiene (QC): 4 (Pt required CGA while standing w/ FWW sink side for safety during task. ) Upper Body Dressing (QC): 5 (Pt requried set up. ) Lower Body Dressing (QC): 4 (Pt required CGA when standing w/ FWW for pant hike. ) On/Off Footwear: 5 (Pt required set up. ) Other Treatment Pt was seated in chair upon OT arrival. Pt stated she wanted to get ready for the day. Pt agreed to tx session. Pt performed UBD, LBD, and footwear while seated in chair, see QC's above. Pt transferred from sit to stand w/ FWW at [facility]. Pt performed functional mobility from chair to sink side w/ FWW at [facility] for oral hygiene and grooming task, see QC above. Pt then performed functional mobility w/ FWW at [facility] from room to therapy gym, requiring 1 seated rest break. Pt participated in arm bike exercise while seated at 15 watt resistance for 15 minutes, requiring x8 rest breaks to support strength and endurance for ADL function. Pt performed and educated in home exercise program T-band BUE exercises w/ mild resistance, x2 rounds of x10 reps in each of the following: shoulder abduction, shoulder flexion, shoulder external rotation, shoulder horizontal abduction, elbow flexion, and elbow extension to support strength and endurance for ADL's. Pt participated at [facility] while seated for energy conservation, in peg and peg board activity w/ 1lb weighted wrist weights completing x20/100 pegs, to support sitting balance, crossing midline, building strength and endurance in BUE's. Pt then performed functional mobility w/ FWW from therapy room to personal toilet. Pt performed toilet task, see QC above. Pt performed functional mobility at [facility] for balance and safety from toilet to sink for hand hygiene and from sink to bed. Post tx session, pt was lying supine in bed, call light within reach, and all needs met. Education OT Patient Education: Energy conservation, Exercise program, Progress toward Goal/Update tx plan, Purpose of tx/functional activities, Safety issues Teaching Recipient: Patient Teaching Methods: Demonstration, Handout Response to Teaching: Verbalize Understanding, Return Demonstration OT Short Term Goals Short Term Goals Time Frame: Mar 01, 2021 Toileting hygiene: 45 Shower/bathe self: 4 Upper body dressin Lower body dressin Putting on/taking off footwear: 4 OT Start Up Specialist Goals Start Up Specialist Goals Time Frame: Mar 10, 2021 Eating (QC): 6 Oral Hygiene (QC): 6 Toileting Hygiene (QC): 6 Shower/Bathe Self (QC): 6 Upper Body Dressing (QC): 6 Lower Body Dressing (QC): 6 On/Off Footwear (QC): 6 Additional Goals: 1-Demonstrate ADL Tasks, 2-Verbalize Understanding, 3-ImproveStrength/Bull 1=Demonstrate adherence to instructed precautions during ADL tasks. 2=Patient will verbalize/demonstrate understanding of assistive devices/modifications for ADL. 3=Patient will improve strength/tolerance for activity to enable patient to perform ADL's. OT Education/Plan Problem List/Assessment Assessment: Decreased Activ Tolerance, Decreased UE Strength, Impaired Funct Balance, Impaired I ADL's, Impaired Self-Care Skills Discharge Recommendations Plan/Recommendations: Continue POC Treatment Plan/Plan of Care Patient would benefit from OT for education, treatment and training to promote independence in ADL's, mobility, safety and/or upper extremity function for ADL's. Plan of Care: ADL Retraining, Functional Mobility, Group Exercise/Act as Ind, UE Funct Exercise/Act Treatment Duration: Mar 10, 2021 Frequency: At least 5 of 7 days/Wk (IRF) Estimated Hrs Per Day: 1.5 hours per day Agreement: Yes Rehab Potential: Fair Time/GCodes Start Time: 08:00 Stop Time: 09:30 Total Time Billed (hr/min): 90 Billed Treatment Time 1 Visit, ADL 2 (30'), EX 3 (45'), FA (15') MAGDIEL GREER OT Feb 21, 2021 08:46
--- NOTE | 2021-02-21 09:09 | PM&R Progress Note ---
Subjective HPI/CC On Admission Date Seen by Provider: Feb 21, 2021 Time Seen by Provider: 09:15 Subjective/Events-last exam 02/21/21: Patient doing well No pain reported Checked meds and labs Improved transfers and use of right arm 02/20/21: Patient doing well Potassium 3.3 No pain reported Functioning well Participating well 02/19/21: No major issues Dramatically improved Right hand much improved Check meds and labs 02/18/2021: Patient doing really well Pain is controlled Discontinue the Hep-Lock since no more nausea or vomiting Check meds and labs Irritable bowel management 02/17/2021: Patient doing really well today Had a vomiting episode while in therapy so started gentle IV fluids and Zofran IV Blood pressure stable Headaches are daily Able to participate Review of Systems General: Fatigue Neurological: Weakness, Incoordination Objective Exam Vital Signs Vital Signs Date Time Temp Pulse Resp B/P (MAP) Pulse Ox O2 Delivery O2 Flow Rate FiO2 02/21/21 20:40 Room Air 02/21/21 20:27 36.4 66 16 131/63 (85) 97 Capillary Refill : General Appearance: No Apparent Distress, WD/WN, Chronically ill HEENT: PERRL/EOMI, Normal ENT Inspection, Pharynx Normal Neck: Full Range of Motion, Normal Inspection, Non Tender, Supple, Carotid Bruit Respiratory: Chest Non Tender, Lungs Clear, Normal Breath Sounds, No Accessory Muscle Use, No Respiratory Distress Cardiovascular: Regular Rate, Rhythm, No Edema, No Gallop, No JVD, No Murmur, Normal Peripheral Pulses Gastrointestinal: Normal Bowel Sounds, No Organomegaly, No Pulsatile Mass, Non Tender, Soft Back: Normal Inspection, No CVA Tenderness, No Vertebral Tenderness Extremity: Normal Capillary Refill, Normal Inspection, Normal Range of Motion, Non Tender, No Calf Tenderness, No Pedal Edema Neurologic/Psychiatric: Alert, Oriented x3, Normal Mood/Affect, professor of biostatistics II-XII Norm as Tested, Abnormal Gait, Motor Weakness (Right upper extremity weakness 3/5) Skin: Normal Color, Warm/Dry Lymphatic: No Adenopathy Results/Procedures Lab Patient resulted labs reviewed. FIM Transfers Therapy Code Descriptions/Definitions Functional [place] Measure: 0=Not Assessed/NA 4=Minimal Assistance 1=Total Assistance 5=Supervision or Setup 2=Maximal Assistance 6=Modified [place] 3=Moderate Assistance 7=Complete IndependenceSCALE: Activities may be completed with or without assistive devices. 0-Zhrwmuynro-ggbufth completes the activity by him/herself with no assistance from a helper. 5-Set-up or Clean-up Assistance-helper sets up or cleans up; patient completes activity. [place] assists only prior to or following the activity. 4-Supervision or Touching Assistance-helper provides verbal cues and/or touching/steadying and/or contact guard assistance as patient completes activity. Assistance may be provided throughout the activity or intermittently. 3-Partial/Moderate Assistance-helper does LESS THAN HALF the effort. [place] lifts, holds or supports trunk or limbs, but provides less than half the effort. 2-Substantial/Maximal Assistance-helper does MORE THAN HALF the effort. [place] lifts or holds trunk or limbs and provides more than half the effort. 7-Yxyocpiff-tzohwa does ALL the effort. Patient does none of the effort to complete the activity. Or, the assistance of 2 or more helpers is required for the patient to complete the activity. If activity was not attempted, code reason: 7-Patient Refused. 9-Not Applicable-not attempted and the patient did not perform the activity befo re the current illness, exacerbation or injury. 10-Not Attempted due to Environmental Limitations-(lack of equipment, weather re straints, etc.). 88-Not Attempted due to Medical Conditions or Safety Concerns. Roll Left to Right (QC): 6 Sit to Lying (QC): 6 Sit to Stand (QC): 3 Chair/Vvm-xc-Obsdc Xfer(QC): 4 Car Transfer (QC): 3 Gait Training Does the Patient Walk?: Yes Distance: 100', 75' x2 Walk 10 feet (QC): 4 Walk 50 ft with 2 Turns(QC): 4 Walking 10ft/uneven surface-QC: 4 Gait Persons Needed: 1 Gait Assistive Device: FWW Wheelchair Training Does the Pt Use a Wheelchair?: Yes Distance: 120' Wheel 50 ft with 2 turns (QC): 4 Wheel 150 ft (QC): 88 Type of Wheelchair: Manual Stair Training #of Steps: 1 1 Step (curb) (QC): 4 4 Steps (QC): 88 12 Steps (QC): 88 Balance Picking up an Object (QC): 4 ADL-Treatment Eating (QC): 5 (Per pt performed w/ set up, assistance opening containers.) Oral Hygiene (QC): 4 (Pt required CGA while standing w/ FWW sink side for safety during task. ) Shower/Bathe Self (QC): 4 (Pt was able to wash all parts, requiring CGA when standing to wash backside and brii area. ) Upper Body Dressing (QC): 5 (Pt requried set up. ) Lower Body Dressing (QC): 4 (Pt required CGA when standing w/ FWW for pant hike. ) On/Off Footwear (QC): 5 (Pt required set up. ) Toileting Hygiene (QC): 4 (Pt required CGA when standing for task to deedee/doff LBD. ) Toilet Transfer (QC): 4 (Pt requried CGA for safety during task.) Assessment/Plan Assessment and Plan Assess & Plan/Chief Complaint SeeAssessment: VA with right-sided weakness Hypertension Hyperlipidemia Chronic kidney disease IBS Nausea and vomiting on 02/17/2021 requiring IV Zofran and IV fluids Plan: Rehab protocol Aggressive therapy Home meds Metamucil at night 02/17/2021: Nausea and vomiting management Monitor closely 02/18/2021: Discontinue IV Supportive care 02/19/21: Dramatic improvement Fall risk 02/20/21: Doing well Increased independence 02/21/21: Improved overall Await plan from team (1) Pulmonary hypertension Assessment & Plan: Exact etiology unclear. She is a lifelong non-smoker although did have a significant secondhand exposure to cigarette smoking. She has no history of pulmonary disease. She does not have any pulmonary symptoms. I would suggest that we obtain a follow-up echocardiogram in 3-6 months. I do not see any indication for an extensive evaluation for secondary causes of pulmonary hypertension at this point in time. (2) Left middle cerebral artery stroke Assessment & Plan: This was initially thought to be due to atheroembolic disease from the carotid arteries that may have embolized. However, her invasive carotid angiogram did not show significant carotid stenosis. This does not exclude atheroembolic disease. However, this also raises a question of possible cardiac source of embolism. Once she recovers from the stroke and is discharged home, we may want to consider a 30-day event monitor to screen for paroxysmal atrial fibrillation. In the interim, she should continue on aspirin, clopidogrel and statin medication (3) Thoracic aortic aneurysm without rupture Assessment & Plan: This was an incidental finding on her echocardiogram at the outside facility. This is in a mild range. This will need to be followed longitudinally. (4) Atherosclerosis of both carotid arteries Assessment & Plan: As above, she was found to have bilateral atherosclerosis with no significant stenosis. Continue aspirin and statin medication. (5) Primary hypertension Assessment & Plan: Blood pressures are intermittently elevated. She is now out of the acute phase of the stroke. If her blood pressures remain elevated, she may need some adjustment to her antihypertensive medication. (6) Mixed hyperlipidemia Assessment & Plan: She had no previous history of hyperlipidemia but in light of the stroke and carotid atherosclerosis, she should continue statin medication LAZ DIALLO DO Feb 21, 2021 09:09
[2021-02-21] MEDS: lisINopril 40 MG (PRINIVIL) TABLET PO SCH (09:38)
[2021-02-21] MEDS: VITAMIN D3 25 MCG (1,000 UNITS) TABLET PO SCH (09:38)
[2021-02-21] MEDS: ASPIRIN 81 MG CHEW (CHILDREN'S ASA) PO SCH (09:38)
[2021-02-21] MEDS: CLOPIDOGREL 75 MG (PLAVIX) TABLET PO SCH (09:39)
[2021-02-21] MEDS: ASCORBIC ACID (VIT C) 500 MG TABLET PO SCH (09:39)
[2021-02-21] MEDS: SENNA W/DOCUSATE (SENOKOT S) TABLET PO SCH ×2 (09:41→19:43)
[2021-02-21] MEDS: polyethylene glycoL POWDER 17 GM (MIRALAX) PACK PO SCH ×2 (09:41→19:43)
[2021-02-21] MEDS: DOCUSATE SODIUM 100 MG (COLACE) CAP PO SCH ×2 (09:41→19:42)
--- NOTE | 2021-02-21 10:57 | Physical Therapy Daily Note ---
PT Daily Note-Current Subjective Patient in bed pre tx, agrees to PT, has no complaints of pain but states she is tired from OT earlier. Appearance Patient in bed post tx with nurse call, phone, tray, all needs met. Mental Status Patient Orientation: Person, Place, Situation Transfers SCALE: Activities may be completed with or without assistive devices. 2-Srcpfowmep-izorzfb completes the activity by him/herself with no assistance from a helper. 5-Set-up or Clean-up Assistance-helper sets up or cleans up; patient completes activity. [place] assists only prior to or following the activity. 4-Supervision or Touching Assistance-helper provides verbal cues and/or touching/steadying and/or contact guard assistance as patient completes activity. Assistance may be provided throughout the activity or intermittently. 3-Partial/Moderate Assistance-helper does LESS THAN HALF the effort. [place] lifts, holds or supports trunk or limbs, but provides less than half the effort. 2-Substantial/Maximal Assistance-helper does MORE THAN HALF the effort. [place] lifts or holds trunk or limbs and provides more than half the effort. 0-Hccrfrzbe-cnymbt does ALL the effort. Patient does none of the effort to complete the activity. Or, the assistance of 2 or more helpers is required for the patient to complete the activity. If activity was not attempted, code reason: 7-Patient Refused. 9-Not Applicable-not attempted and the patient did not perform the activity before the current illness, exacerbation or injury. 10-Not Attempted due to Environmental Limitations-(lack of equipment, weather restraints, etc.). 88-Not Attempted due to Medical Conditions or Safety Concerns. Roll Left & Right (QC): 6 Sit to Lying (QC): 6 Lying to Sitting/Side of Bed(Q: 6 Sit to Stand (QC): 4 Chair/Gss-nm-Plezu Xfer(QC): 4 SBA for sit to stand and transfers, occasional cues for hand placement Gait Training Distance: 150'x2 Walk 10 feet (QC): 4 Walk 50 ft with 2 Turns(QC): 4 Walk 150 ft (QC): 4 Gait Persons Needed: 1 Gait Assistive Device: FWW very slow but steady ambulation Exercises Standing: Heel/toe raises, Marching, Mini squats Standing Reps: 15 balance activity retrieving cones involving ambulation without an assistive device and turning NuStep Minutes: 15 NuStep Workload: 5 Treatments bed mobility and transfers, ambulation, balance training, functional strengthening Assessment Current Status: Fair Progress improving endurance and functional mobility but very slow. PT Short Term Goals Short Term Goals Time Frame: Feb 23, 2021 Roll Left & Right: 6 Sit to lyin Lying to sitting on side of be: 6 Sit to stand: 4 (SBA) Chair/jnp-nx-ylfot transfer: 4 (SBA) Walk 10 feet: 4 (SBA) Walk 50 feet with two turns: 4 (SBA) PT Manager Clinical Informatics Goals Intermediate Goals PT Manager Clinical Informatics Goals Time Frame: Mar 09, 2021 Roll Left & Right (QC): 6 Sit to Lying (QC): 6 Lying-Sitting on Side/Bed(QC): 6 Sit to Stand (QC): 6 Chair/Pgi-sm-Twwxw Xfer(QC): 6 Toilet Transfer (QC): 6 Car Transfer (QC): 5 Does the Patient Walk: Yes Walk 10 feet (QC): 6 Walk 50ft with 2 Turns (QC): 6 Walk 150 ft (QC): 6 Walking 10ft on Uneven Surface: 6 1 Step (curb) (QC): 4 4 Steps (QC): 4 12 Steps (QC): 88 Picking up an Object (QC): 4 Wheel 50 feet with 2 turns (QC: 9 Wheel 150 feet: 9 PT Plan Problem List Problem List: Activity Tolerance, Functional Strength, Safety, Balance, Gait, Transfer, ROM Treatment/Plan Treatment Plan: Continue Plan of Care Treatment Plan: Bed Mobility, Education, Functional Activity Bull, Functional Strength, Group Therapy, Gait, Safety, Therapeutic Exercise, Transfers Treatment Duration: Mar 09, 2021 Frequency: At least 5 of 7 days/Wk (IRF) Estimated Hrs Per Day: 1.5 hours per day Patient and/or Family Agrees t: Yes Safety Risks/Education Patient Education: Gait Training, Transfer Techniques, Correct Positioning, Safety Issues Teaching Recipient: Patient Teaching Methods: Demonstration, Discussion Response to Teaching: Reinforcement Needed Time/GCodes Time In: 1000 Time Out: 1100 Total Billed Treatment Time: 60 Total Billed Treatment 1 visit EX 40' FA 20' CHARLY MCKEON PT Feb 21, 2021 10:57
--- NOTE | 2021-02-21 14:56 | Physical Therapy Daily Note ---
PT Daily Note-Current Subjective Patient in recliner pre tx, agrees to PT, has no complaints of pain. Appearance Patient in restroom on toilet post tx, will use nurse call when done. Mental Status Patient Orientation: Person, Place, Situation Transfers SCALE: Activities may be completed with or without assistive devices. 0-Bzbcvtrxup-ystvzvm completes the activity by him/herself with no assistance from a helper. 5-Set-up or Clean-up Assistance-helper sets up or cleans up; patient completes activity. [place] assists only prior to or following the activity. 4-Supervision or Touching Assistance-helper provides verbal cues and/or touchi ng/steadying and/or contact guard assistance as patient completes activity. Assistance may be provided throughout the activity or intermittently. 3-Partial/Moderate Assistance-helper does LESS THAN HALF the effort. [place] lifts, holds or supports trunk or limbs, but provides less than half the effort. 2-Substantial/Maximal Assistance-helper does MORE THAN HALF the effort. [place] lifts or holds trunk or limbs and provides more than half the effort. 7-Wvjysnjqj-jswwxy does ALL the effort. Patient does none of the effort to complete the activity. Or, the assistance of 2 or more helpers is required for the patient to complete the activity. If activity was not attempted, code reason: 7-Patient Refused. 9-Not Applicable-not attempted and the patient did not perform the activity before the current illness, exacerbation or injury. 10-Not Attempted due to Environmental Limitations-(lack of equipment, weather restraints, etc.). 88-Not Attempted due to Medical Conditions or Safety Concerns. Sit to Stand (QC): 4 Chair/Uml-pm-Siurs Xfer(QC): 4 SBA Gait Training Distance: 200'x2 Walk 10 feet (QC): 4 Walk 50 ft with 2 Turns(QC): 4 Walk 150 ft (QC): 4 Gait Assistive Device: FWW extremely slow but steady ambulation, small steps, after getting back to her room she states she needs to use the restroom Treatments transfers, ambulation Assessment Current Status: Fair Progress improving endurance PT Short Term Goals Short Term Goals Time Frame: Feb 23, 2021 Roll Left & Right: 6 Sit to lyin Lying to sitting on side of be: 6 Sit to stand: 4 (SBA) Chair/mqz-me-vpnle transfer: 4 (SBA) Walk 10 feet: 4 (SBA) Walk 50 feet with two turns: 4 (SBA) PT Dog Show Judge Goals Halfway Goals PT Dog Show Judge Goals Time Frame: Mar 09, 2021 Roll Left & Right (QC): 6 Sit to Lying (QC): 6 Lying-Sitting on Side/Bed(QC): 6 Sit to Stand (QC): 6 Chair/Qcc-mr-Fqhri Xfer(QC): 6 Toilet Transfer (QC): 6 Car Transfer (QC): 5 Does the Patient Walk: Yes Walk 10 feet (QC): 6 Walk 50ft with 2 Turns (QC): 6 Walk 150 ft (QC): 6 Walking 10ft on Uneven Surface: 6 1 Step (curb) (QC): 4 4 Steps (QC): 4 12 Steps (QC): 88 Picking up an Object (QC): 4 Wheel 50 feet with 2 turns (QC: 9 Wheel 150 feet: 9 PT Plan Problem List Problem List: Activity Tolerance, Functional Strength, Safety, Balance, Gait, Transfer, Bed Mobility, ROM Treatment/Plan Treatment Plan: Continue Plan of Care Treatment Plan: Bed Mobility, Education, Functional Activity Bull, Functional Strength, Group Therapy, Gait, Safety, Therapeutic Exercise, Transfers Treatment Duration: Mar 09, 2021 Frequency: At least 5 of 7 days/Wk (IRF) Estimated Hrs Per Day: 1.5 hours per day Patient and/or Family Agrees t: Yes Safety Risks/Education Patient Education: Gait Training, Transfer Techniques, Correct Positioning, Safety Issues Teaching Recipient: Patient Teaching Methods: Demonstration, Discussion Response to Teaching: Reinforcement Needed Time/GCodes Time In: 1430 Time Out: 1500 Total Billed Treatment Time: 30 Total Billed Treatment 1 visit GT 30' CHARLY MCKEON PT Feb 21, 2021 14:56
[2021-02-21] MEDS: MELATONIN 10 MG TABLET PO SCH (19:43)
[2021-02-21 20:27] VITALS: BP 131/63
[2021-02-21] MEDS: PSYLLIUM POWDER (METAMUCIL) 5.8 GM PACKET PO SCH (21:29)
[2021-02-22] MEDS: KCL 20 MEQ TAB (K-DUR) PO SCH (06:55)
[2021-02-22] MEDS: KCL 10 MEQ TAB (MICRO K) PO SCH (06:55)
[2021-02-22] MEDS: MULTIVIT W/MINERALS TAB (THERAGRAN M) PO SCH (06:55)
[2021-02-22 07:42] VITALS: BP 136/65
[2021-02-22] MEDS: ASPIRIN 81 MG CHEW (CHILDREN'S ASA) PO SCH (08:00)
[2021-02-22] MEDS: lisINopril 40 MG (PRINIVIL) TABLET PO SCH (08:00)
[2021-02-22] MEDS: VITAMIN D3 25 MCG (1,000 UNITS) TABLET PO SCH (08:00)
[2021-02-22] MEDS: ASCORBIC ACID (VIT C) 500 MG TABLET PO SCH (08:00)
[2021-02-22] MEDS: CLOPIDOGREL 75 MG (PLAVIX) TABLET PO SCH (08:01)
[2021-02-22] MEDS: DOCUSATE SODIUM 100 MG (COLACE) CAP PO SCH ×2 (08:02→19:27)
[2021-02-22] MEDS: SENNA W/DOCUSATE (SENOKOT S) TABLET PO SCH ×2 (08:02→19:27)
[2021-02-22] MEDS: polyethylene glycoL POWDER 17 GM (MIRALAX) PACK PO SCH ×2 (08:02→19:27)
--- NOTE | 2021-02-22 09:04 | PM&R Progress Note ---
Subjective HPI/CC On Admission Date Seen by Provider: Feb 22, 2021 Time Seen by Provider: 09:10 Subjective/Events-last exam 02/22/2021: Patient doing very well No pain is reported Participated in aggressive therapy We will work on tub bench in order to shower at home 02/21/21: Patient doing well No pain reported Checked meds and labs Improved transfers and use of right arm 02/20/21: Patient doing well Potassium 3.3 No pain reported Functioning well Participating well 02/19/21: No major issues Dramatically improved Right hand much improved Check meds and labs 02/18/2021: Patient doing really well Pain is controlled Discontinue the Hep-Lock since no more nausea or vomiting Check meds and labs Irritable bowel management 02/17/2021: Patient doing really well today Had a vomiting episode while in therapy so started gentle IV fluids and Zofran IV Blood pressure stable Headaches are daily Able to participate Review of Systems General: Fatigue, Malaise Neurological: Weakness, Incoordination Objective Exam Vital Signs Vital Signs Date Time Temp Pulse Resp B/P (MAP) Pulse Ox O2 Delivery O2 Flow Rate FiO2 02/22/21 20:36 Room Air 02/22/21 19:58 36.2 63 18 114/56 (75) 97 Capillary Refill : General Appearance: No Apparent Distress, WD/WN, Chronically ill HEENT: PERRL/EOMI, Normal ENT Inspection, Pharynx Normal Neck: Full Range of Motion, Normal Inspection, Non Tender, Supple, Carotid Bruit Respiratory: Chest Non Tender, Lungs Clear, Normal Breath Sounds, No Accessory Muscle Use, No Respiratory Distress Cardiovascular: Regular Rate, Rhythm, No Edema, No Gallop, No JVD, No Murmur, Normal Peripheral Pulses Gastrointestinal: Normal Bowel Sounds, No Organomegaly, No Pulsatile Mass, Non Tender, Soft Back: Normal Inspection, No CVA Tenderness, No Vertebral Tenderness Extremity: Normal Capillary Refill, Normal Inspection, Normal Range of Motion, Non Tender, No Calf Tenderness, No Pedal Edema Neurologic/Psychiatric: Alert, Oriented x3, Normal Mood/Affect, 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 FIM Transfers Therapy Code Descriptions/Definitions Functional [place] Measure: 0=Not Assessed/NA 4=Minimal Assistance 1=Total Assistance 5=Supervision or Setup 2=Maximal Assistance 6=Modified [place] 3=Moderate Assistance 7=Complete IndependenceSCALE: Activities may be completed with or without assistive devices. 6-Qvonumnrvq-hspykly completes the activity by him/herself with no assistance from a helper. 5-Set-up or Clean-up Assistance-helper sets up or cleans up; patient completes activity. [place] assists only prior to or following the activity. 4-Supervision or Touching Assistance-helper provides verbal cues and/or touching/steadying and/or contact guard assistance as patient completes activity. Assistance may be provided throughout the activity or intermittently. 3-Partial/Moderate Assistance-helper does LESS THAN HALF the effort. [place] lifts, holds or supports trunk or limbs, but provides less than half the effort. 2-Substantial/Maximal Assistance-helper does MORE THAN HALF the effort. [place] lifts or holds trunk or limbs and provides more than half the effort. 0-Thvplthvz-xclhji does ALL the effort. Patient does none of the effort to complete the activity. Or, the assistance of 2 or more helpers is required for the patient to complete the activity. If activity was not attempted, code reason: 7-Patient Refused. 9-Not Applicable-not attempted and the patient did not perform the activity before the current illness, exacerbation or injury. 10-Not Attempted due to Environmental Limitations-(lack of equipment, weather restraints, etc.). 88-Not Attempted due to Medical Conditions or Safety Concerns. Roll Left to Right (QC): 6 Sit to Lying (QC): 6 Sit to Stand (QC): 4 Chair/Mmt-lg-Nzkbz Xfer(QC): 4 Car Transfer (QC): 3 Gait Training Does the Patient Walk?: Yes Distance: 200'x2 Walk 10 feet (QC): 4 Walk 50 ft with 2 Turns(QC): 4 Walk 150 ft (QC): 4 Walking 10ft/uneven surface-QC: 4 Gait Persons Needed: 1 Gait Assistive Device: FWW Wheelchair Training Does the Pt Use a Wheelchair?: No Distance: 120' Wheel 50 ft with 2 turns (QC): 4 Wheel 150 ft (QC): 88 Type of Wheelchair: N/A Stair Training #of Steps: 1 1 Step (curb) (QC): 4 4 Steps (QC): 88 12 Steps (QC): 88 Balance Picking up an Object (QC): 4 ADL-Treatment Eating (QC): 5 (Per pt performed w/ set up, assistance opening containers.) Oral Hygiene (QC): 4 (Pt required CGA while standing w/ FWW sink side for safety during task. ) Shower/Bathe Self (QC): 4 (Pt was able to wash all parts, requiring CGA when standing to wash backside and brii area. ) Upper Body Dressing (QC): 5 (Pt requried set up. ) Lower Body Dressing (QC): 4 (Pt required CGA when standing w/ FWW for pant hike. ) On/Off Footwear (QC): 5 (Pt required set up. ) Toileting Hygiene (QC): 4 (Pt required CGA when standing for task to deedee/doff LBD. ) Toilet Transfer (QC): 4 (Pt requried CGA for safety during task.) Assessment/Plan Assessment and Plan Assess & Plan/Chief Complaint SeeAssessment: VA with right-sided weakness Hypertension Hyperlipidemia Chronic kidney disease IBS Nausea and vomiting on 02/17/2021 requiring IV Zofran and IV fluids Plan: Rehab protocol Aggressive therapy Home meds Metamucil at night 02/17/2021: Nausea and vomiting management Monitor closely 02/18/2021: Discontinue IV Supportive care 02/19/21: Dramatic improvement Fall risk 02/20/21: Doing well Increased independence 02/21/21: Improved overall Await plan from team 02/22/2021: Supportive care Aggressive therapy (1) Pulmonary hypertension Assessment & Plan: Exact etiology unclear. She is a lifelong non-smoker although did have a significant secondhand exposure to cigarette smoking. She has no history of pulmonary disease. She does not have any pulmonary symptoms. I would suggest that we obtain a follow-up echocardiogram in 3-6 months. I do not see any indication for an extensive evaluation for secondary causes of pulmonary hypertension at this point in time. (2) Left middle cerebral artery stroke Assessment & Plan: This was initially thought to be due to atheroembolic disease from the carotid arteries that may have embolized. However, her invasive carotid angiogram did not show significant carotid stenosis. This does not exclude atheroembolic disease. However, this also raises a question of possible cardiac source of embolism. Once she recovers from the stroke and is discharged home, we may want to consider a 30-day event monitor to screen for paroxysmal atrial fibrillation. In the interim, she should continue on aspirin, clopidogrel and statin medication (3) Thoracic aortic aneurysm without rupture Assessment & Plan: This was an incidental finding on her echocardiogram at the outside facility. This is in a mild range. This will need to be followed longitudinally. (4) Atherosclerosis of both carotid arteries Assessment & Plan: As above, she was found to have bilateral atherosclerosis with no significant stenosis. Continue aspirin and statin medication. (5) Primary hypertension Assessment & Plan: Blood pressures are intermittently elevated. She is now out of the acute phase of the stroke. If her blood pressures remain elevated, she may need some adjustment to her antihypertensive medication. (6) Mixed hyperlipidemia Assessment & Plan: She had no previous history of hyperlipidemia but in light of the stroke and carotid atherosclerosis, she should continue statin medication LAZ DIALLO DO Feb 22, 2021 09:04
--- NOTE | 2021-02-22 09:05 | Occupational Ther Daily Note ---
OT Current Status-Daily Note Subjective Pt was seated in chair upon OT arrival. Pt had just finished up w/ a big breakfast. Pt stated her R foot felt a little tingly today but has full sensation. Mental Status/Objective Patient Orientation: Person, Place, Time, Situation ADL-Treatment Therapy Code Descriptions/Definitions Functional [place] Measure: 0=Not Assessed/NA 4=Minimal Assistance 1=Total Assistance 5=Supervision or Setup 2=Maximal Assistance 6=Modified [place] 3=Moderate Assistance 7=Complete IndependenceSCALE: Activities may be completed with or without assistive devices. 6-Qgmeradyyy-zktxiih completes the activity by him/herself with no assistance from a helper. 5-Set-up or Clean-up Assistance-helper sets up or cleans up; patient completes activity. [place] assists only prior to or following the activity. 4-Supervision or Touching Assistance-helper provides verbal cues and/or touching/steadying and/or contact guard assistance as patient completes activity. Assistance may be provided throughout the activity or intermittently. 3-Partial/Moderate Assistance-helper does LESS THAN HALF the effort. [place] lifts, holds or supports trunk or limbs, but provides less than half the effort. 2-Substantial/Maximal Assistance-helper does MORE THAN HALF the effort. [place] lifts or holds trunk or limbs and provides more than half the effort. 9-Jqvkhxvea-bkazhe does ALL the effort. Patient does none of the effort to complete the activity. Or, the assistance of 2 or more helpers is required for the patient to complete the activity. If activity was not attempted, code reason: 7-Patient Refused. 9-Not Applicable-not attempted and the patient did not perform the activity before the current illness, exacerbation or injury. 10-Not Attempted due to Environmental Limitations-(lack of equipment, weather restraints, etc.). 88-Not Attempted due to Medical Conditions or Safety Concerns. Eating (QC): 6 (IND per pt report.) Oral Hygiene (QC): 6 (IND standing at sink.) Shower/Bathe Self (QC): 4 (Pt required SBA when standing to wash backside and brii area. Pt was able to wash/dry all parts effectively. ) Upper Body Dressing (QC): 6 (IND) Lower Body Dressing (QC): 4 (Pt performed while seated in w/c required SBA when standing to doff/deedee LD garments. ) On/Off Footwear: 6 (Pt performed while seated in w/c at IND.) Toileting Hygiene (QC): 4 (Pt requried SBA for pant hike.) Toilet Transfer (QC): 4 (Pt requried SBA for safety. ) Other Treatment Pt was seated in chair upon OT arrival. Pt had just finished up w/ a big mary grace kfast. Pt stated her R foot felt a little tingly today but has full sensation. Pt transferred from sitting in chair to standing w/ FWW at SBA. Pt performed functional mobility to closet to retrieve UB and LB garments, then to toilet at SBA. Pt performed toileting task, see above QC's. Pt transferred from sitting on toilet to standing w/ FWW, then to SC at SBA. Pt performed showering task, UBD, LBD, and footwear, see above QC's. Pt performed functional mobility from w/c to sink side at SBA using FWW for oral hygiene and grooming, see above QC. Pt performed functional mobility from sink side to therapy gym w/ FWW at A. Pt then participated in arm bike exercise while seated, 20 watt resistance for 15 minutes, requiring x6 rest breaks. Pt performed functional mobility from therapy gym to chair w/ FWW at SBA. Pt naturally moves slowly during entire tx session, stopping to take breaths, or performing seated for energy conservation. Pt felt it was another productive tx session and was ready to take a short nap. Post tx session, pt seated in chair w/ LE elevated, call light within reach, and all needs met. Education OT Patient Education: Energy conservation, Exercise program, Progress toward Goal/Update tx plan, Purpose of tx/functional activities, Safety issues Teaching Recipient: Patient Teaching Methods: Discussion Response to Teaching: Verbalize Understanding OT Short Term Goals Short Term Goals Time Frame: Mar 01, 2021 Toileting hygiene: 45 Shower/bathe self: 4 Upper body dressin Lower body dressin Putting on/taking off footwear: 4 OT Retirement Goals Hand Candle Molder Goals Time Frame: Mar 10, 2021 Eating (QC): 6 Oral Hygiene (QC): 6 Toileting Hygiene (QC): 6 Shower/Bathe Self (QC): 6 Upper Body Dressing (QC): 6 Lower Body Dressing (QC): 6 On/Off Footwear (QC): 6 Additional Goals: 1-Demonstrate ADL Tasks, 2-Verbalize Understanding, 3- ImproveStrength/Bull 1=Demonstrate adherence to instructed precautions during ADL tasks. 2=Patient will verbalize/demonstrate understanding of assistive devices/modifications for ADL. 3=Patient will improve strength/tolerance for activity to enable patient to perform ADL's. OT Education/Plan Problem List/Assessment Assessment: Decreased Activ Tolerance, Decreased UE Strength, Impaired Funct Balance, Impaired I ADL's, Impaired Self-Care Skills Discharge Recommendations Plan/Recommendations: Continue POC Treatment Plan/Plan of Care Patient would benefit from OT for education, treatment and training to promote independence in ADL's, mobility, safety and/or upper extremity function for ADL's. Plan of Care: ADL Retraining, Functional Mobility, Group Exercise/Act as Ind, UE Funct Exercise/Act Treatment Duration: Mar 10, 2021 Frequency: At least 5 of 7 days/Wk (IRF) Estimated Hrs Per Day: 1.5 hours per day Agreement: Yes Rehab Potential: Fair Time/GCodes Start Time: 08:00 Stop Time: 09:30 Total Time Billed (hr/min): 90 Billed Treatment Time 1 Visit, ADL 4 (65'), EX 2 (25') MAGDIEL GREER OT Feb 22, 2021 09:05
--- NOTE | 2021-02-22 12:06 | Physical Therapy Daily Note ---
PT Daily Note-Current Subjective Pt in recliner upon arrival and agrees to tx. Pt has no c/o pain at this time. Mental Status Patient Orientation: Person, Place, Time, Situation Transfers SCALE: Activities may be completed with or without assistive devices. 3-Xtjqghfhtq-ihywacl completes the activity by him/herself with no assistance from a helper. 5-Set-up or Clean-up Assistance-helper sets up or cleans up; patient completes activity. [place] assists only prior to or following the activity. 4-Supervision or Touching Assistance-helper provides verbal cues and/or touching/steadying and/or contact guard assistance as patient completes activity. Assistance may be provided throughout the activity or intermittently. 3-Partial/Moderate Assistance-helper does LESS THAN HALF the effort. [place] lifts, holds or supports trunk or limbs, but provides less than half the effort. 2-Substantial/Maximal Assistance-helper does MORE THAN HALF the effort. [place] lifts or holds trunk or limbs and provides more than half the effort. 8-Isvqqegpo-gwrivs does ALL the effort. Patient does none of the effort to complete the activity. Or, the assistance of 2 or more helpers is required for the patient to complete the activity. If activity was not attempted, code reason: 7-Patient Refused. 9-Not Applicable-not attempted and the patient did not perform the activity before the current illness, exacerbation or injury. 10-Not Attempted due to Environmental Limitations-(lack of equipment, weather restraints, etc.). 88-Not Attempted due to Medical Conditions or Safety Concerns. Sit to Stand (QC): 5 Gait Training Does the Patient Walk?: Yes Distance: 300', 150' Walk 10 feet (QC): 4 Walk 50 ft with 2 Turns(QC): 4 Walk 150 ft (QC): 4 Gait Persons Needed: 1 Gait Assistive Device: FWW Pt amb 300' w/ FWW and SBA, slow but steady gait and VC given for upright posture. Pt attempts amb w/o an AD 150'. Pt has forward flexed posture, shuffling and slow gait. CGA/Cristopher for steadiness. Will try amb w/ SPC in pm tx. Wheelchair Training Does the Pt Use a Wheelchair?: No Exercises NuStep Minutes: 15 NuStep Workload: 5 Treatments Pt request to use bathroom prior to amb, pt doffs/dons pants, cleans self, and washes hands CGA w/o any LOB. Pt amb 300' and enters therapy gym to complete NuStep. Pt then amb 150' w/o an AD. Pt slightly unsteady during this bout, will attempt amb w/ SPC in pm. Pt returns to recliner with all needs met, call light in hand. Assessment Current Status: Good Progress Pt increasing endurance and mobility PT Short Term Goals Short Term Goals Time Frame: Feb 23, 2021 Roll Left & Right: 6 Sit to lyin Lying to sitting on side of be: 6 Sit to stand: 4 (SBA) Chair/vgq-xo-vpzno transfer: 4 (SBA) Walk 10 feet: 4 (SBA) Walk 50 feet with two turns: 4 (SBA) PT Vacuum Metalizer Operator Goals Vacuum Metalizer Operator Goals PT Vacuum Metalizer Operator Goals Time Frame: Mar 09, 2021 Roll Left & Right (QC): 6 Sit to Lying (QC): 6 Lying-Sitting on Side/Bed(QC): 6 Sit to Stand (QC): 6 Chair/Dop-tb-Ofvni Xfer(QC): 6 Toilet Transfer (QC): 6 Car Transfer (QC): 5 Does the Patient Walk: Yes Walk 10 feet (QC): 6 Walk 50ft with 2 Turns (QC): 6 Walk 150 ft (QC): 6 Walking 10ft on Uneven Surface: 6 1 Step (curb) (QC): 4 4 Steps (QC): 4 12 Steps (QC): 88 Picking up an Object (QC): 4 Wheel 50 feet with 2 turns (QC: 9 Wheel 150 feet: 9 PT Plan Treatment/Plan Treatment Plan: Continue Plan of Care Treatment Plan: Bed Mobility, Education, Functional Activity Bull, Functional Strength, Group Therapy, Gait, Safety, Therapeutic Exercise, Transfers Treatment Duration: Mar 09, 2021 Frequency: At least 5 of 7 days/Wk (IRF) Estimated Hrs Per Day: 1.5 hours per day Patient and/or Family Agrees t: Yes Time/GCodes Time In: 1115 Time Out: 1215 Total Billed Treatment Time: 60 Total Billed Treatment 1, FA, Ex, GT x2 ALIYAH,ELAINA TRANSONIC ENGINEER Feb 22, 2021 12:06
--- NOTE | 2021-02-22 14:36 | Physical Therapy Daily Note ---
PT Daily Note-Current Subjective Pt in recliner upon arrival w/ RN in room and agrees to tx. Pt has no c/o pain at this time Mental Status Patient Orientation: Person, Place, Situation Transfers SCALE: Activities may be completed with or without assistive devices. 2-Wyeuapjoic-npejznt completes the activity by him/herself with no assistance from a helper. 5-Set-up or Clean-up Assistance-helper sets up or cleans up; patient completes activity. [place] assists only prior to or following the activity. 4-Supervision or Touching Assistance-helper provides verbal cues and/or touching/steadying and/or contact guard assistance as patient completes activity. Assistance may be provided throughout the activity or intermittently. 3-Partial/Moderate Assistance-helper does LESS THAN HALF the effort. [place] lifts, holds or supports trunk or limbs, but provides less than half the effort. 2-Substantial/Maximal Assistance-helper does MORE THAN HALF the effort. [place] lifts or holds trunk or limbs and provides more than half the effort. 9-Czeelnvhp-mrtxrh does ALL the effort. Patient does none of the effort to complete the activity. Or, the assistance of 2 or more helpers is required for the patient to complete the activity. If activity was not attempted, code reason: 7-Patient Refused. 9-Not Applicable-not attempted and the patient did not perform the activity before the current illness, exacerbation or injury. 10-Not Attempted due to Environmental Limitations-(lack of equipment, weather restraints, etc.). 88-Not Attempted due to Medical Conditions or Safety Concerns. Sit to Stand (QC): 5 Gait Training Does the Patient Walk?: Yes Distance: 150' Walk 10 feet (QC): 4 Walk 50 ft with 2 Turns(QC): 4 Walk 150 ft (QC): 4 Gait Persons Needed: 1 Gait Assistive Device: Cane Single Point Pt attempted amb w/ SPC, has slow, steady gait with narrow ELAINE. VC for upright posture and increased step length. When using SPC pt says "It feels awkward, but more stable than without anything." Treatments Pt in recliner, sit to stand SBA and amb 150' with SPC. Pt has extremely slow gait, shuffling and flexed posture. Pt amb back to room and request to use bathroom. Pt able to doff/don pants, clean self, and wash hands CGA/SBA. Pt retu rns to recliner with all needs met, call light in hand. Assessment Current Status: Good Progress Pt increasing strength, mobility, and endurance. Pt attempted amb w/ SPC, more steady than w/o an AD. Will cont to use until pt becomes more steady and stronger PT Short Term Goals Short Term Goals Time Frame: Feb 23, 2021 Roll Left & Right: 6 Sit to lyin Lying to sitting on side of be: 6 Sit to stand: 4 (SBA) Chair/pgv-wh-ydhsu transfer: 4 (SBA) Walk 10 feet: 4 (SBA) Walk 50 feet with two turns: 4 (SBA) PT Train Master Goals Senior Care Goals PT Senior Care Goals Time Frame: Mar 09, 2021 Roll Left & Right (QC): 6 Sit to Lying (QC): 6 Lying-Sitting on Side/Bed(QC): 6 Sit to Stand (QC): 6 Chair/Bzq-ge-Agrax Xfer(QC): 6 Toilet Transfer (QC): 6 Car Transfer (QC): 5 Does the Patient Walk: Yes Walk 10 feet (QC): 6 Walk 50ft with 2 Turns (QC): 6 Walk 150 ft (QC): 6 Walking 10ft on Uneven Surface: 6 1 Step (curb) (QC): 4 4 Steps (QC): 4 12 Steps (QC): 88 Picking up an Object (QC): 4 Wheel 50 feet with 2 turns (QC: 9 Wheel 150 feet: 9 PT Plan Treatment/Plan Treatment Plan: Continue Plan of Care Treatment Plan: Bed Mobility, Education, Functional Activity Bull, Functional Strength, Group Therapy, Gait, Safety, Therapeutic Exercise, Transfers Treatment Duration: Mar 09, 2021 Frequency: At least 5 of 7 days/Wk (IRF) Estimated Hrs Per Day: 1.5 hours per day Patient and/or Family Agrees t: Yes Time/GCodes Time In: 1400 Time Out: 1430 Total Billed Treatment Time: 30 Total Billed Treatment 1, GT, ELAINA ALMAGUER HARVESTING CONTRACTOR Feb 22, 2021 14:36
[2021-02-22 19:58] VITALS: BP 114/56
[2021-02-22] MEDS: PSYLLIUM POWDER (METAMUCIL) 5.8 GM PACKET PO SCH (20:14)
[2021-02-22] MEDS: MELATONIN 10 MG TABLET PO SCH (20:16)
[2021-02-23] MEDS: MULTIVIT W/MINERALS TAB (THERAGRAN M) PO SCH (06:33)
[2021-02-23] MEDS: KCL 20 MEQ TAB (K-DUR) PO SCH (06:33)
[2021-02-23] MEDS: KCL 10 MEQ TAB (MICRO K) PO SCH (06:33)
[2021-02-23] MEDS: SENNA W/DOCUSATE (SENOKOT S) TABLET PO SCH ×2 (07:53→19:37)
[2021-02-23] MEDS: DOCUSATE SODIUM 100 MG (COLACE) CAP PO SCH ×2 (07:53→19:36)
[2021-02-23] MEDS: polyethylene glycoL POWDER 17 GM (MIRALAX) PACK PO SCH ×2 (07:53→19:36)
[2021-02-23] MEDS: ASPIRIN 81 MG CHEW (CHILDREN'S ASA) PO SCH (08:14)
[2021-02-23] MEDS: VITAMIN D3 25 MCG (1,000 UNITS) TABLET PO SCH (08:14)
[2021-02-23] MEDS: ASCORBIC ACID (VIT C) 500 MG TABLET PO SCH (08:14)
[2021-02-23] MEDS: CLOPIDOGREL 75 MG (PLAVIX) TABLET PO SCH (08:14)
[2021-02-23] MEDS: lisINopril 40 MG (PRINIVIL) TABLET PO SCH (08:15)
[2021-02-23 08:20] VITALS: BP 130/57
--- NOTE | 2021-02-23 10:12 | PM&R Progress Note ---
Subjective HPI/CC On Admission Date Seen by Provider: Feb 23, 2021 Time Seen by Provider: 11:00 Subjective/Events-last exam 02/23/2021: Patient doing well and independent room No major issues Large BM this morning Check meds and labs 02/22/2021: Patient doing very well No pain is reported Participated in aggressive therapy We will work on tub bench in order to shower at home 02/21/21: Patient doing well No pain reported Checked meds and labs Improved transfers and use of right arm 02/20/21: Patient doing well Potassium 3.3 No pain reported Functioning well Participating well 02/19/21: No major issues Dramatically improved Right hand much improved Check meds and labs 02/18/2021: Patient doing really well Pain is controlled Discontinue the Hep-Lock since no more nausea or vomiting Check meds and labs Irritable bowel management 02/17/2021: Patient doing really well today Had a vomiting episode while in therapy so started gentle IV fluids and Zofran IV Blood pressure stable Headaches are daily Able to participate Review of Systems General: Fatigue, Malaise Neurological: Weakness, Incoordination Objective Exam Vital Signs Vital Signs Date Time Temp Pulse Resp B/P (MAP) Pulse Ox O2 Delivery O2 Flow Rate FiO2 02/23/21 09:21 Room Air 02/23/21 08:20 68 130/57 (81) 02/22/21 19:58 36.2 18 97 Capillary Refill : General Appearance: No Apparent Distress, WD/WN, Chronically ill HEENT: PERRL/EOMI, Normal ENT Inspection, Pharynx Normal Neck: Full Range of Motion, Normal Inspection, Non Tender, Supple, Carotid Bruit Respiratory: Chest Non Tender, Lungs Clear, Normal Breath Sounds, No Accessory Muscle Use, No Respiratory Distress Cardiovascular: Regular Rate, Rhythm, No Edema, No Gallop, No JVD, No Murmur, Normal Peripheral Pulses Gastrointestinal: Normal Bowel Sounds, No Organomegaly, No Pulsatile Mass, Non Tender, Soft Back: Normal Inspection, No CVA Tenderness, No Vertebral Tenderness Extremity: Normal Capillary Refill, Normal Inspection, Normal Range of Motion, Non Tender, No Calf Tenderness, No Pedal Edema Neurologic/Psychiatric: Alert, Oriented x3, Normal Mood/Affect, director of it operations II-XII Norm as Tested, Abnormal Gait, Motor Weakness (Right upper extremity weakness 3/5) Skin: Normal Color, Warm/Dry Lymphatic: No Adenopathy Results/Procedures Lab Patient resulted labs reviewed. FIM Transfers Therapy Code Descriptions/Definitions Functional [place] Measure: 0=Not Assessed/NA 4=Minimal Assistance 1=Total Assistance 5=Supervision or Setup 2=Maximal Assistance 6=Modified [place] 3=Moderate Assistance 7=Complete IndependenceSCALE: Activities may be completed with or without assistive devices. 8-Lxjsrsprze-iuserih completes the activity by him/herself with no assistance from a helper. 5-Set-up or Clean-up Assistance-helper sets up or cleans up; patient completes activity. [place] assists only prior to or following the activity. 4-Supervision or Touching Assistance-helper provides verbal cues and/or to uching/steadying and/or contact guard assistance as patient completes activity. Assistance may be provided throughout the activity or intermittently. 3-Partial/Moderate Assistance-helper does LESS THAN HALF the effort. [place] lifts, holds or supports trunk or limbs, but provides less than half the effort. 2-Substantial/Maximal Assistance-helper does MORE THAN HALF the effort. [place] lifts or holds trunk or limbs and provides more than half the effort. 3-Cgaazqymk-vxfjrc does ALL the effort. Patient does none of the effort to complete the activity. Or, the assistance of 2 or more helpers is required for the patient to complete the activity. If activity was not attempted, code reason: 7-Patient Refused. 9-Not Applicable-not attempted and the patient did not perform the activity before the current illness, exacerbation or injury. 10-Not Attempted due to Environmental Limitations-(lack of equipment, weather restraints, etc.). 88-Not Attempted due to Medical Conditions or Safety Concerns. Roll Left to Right (QC): 6 Sit to Lying (QC): 6 Sit to Stand (QC): 5 Chair/Yvd-be-Pmwtr Xfer(QC): 4 Car Transfer (QC): 3 Gait Training Does the Patient Walk?: Yes Distance: 150' Walk 10 feet (QC): 4 Walk 50 ft with 2 Turns(QC): 4 Walk 150 ft (QC): 4 Walking 10ft/uneven surface-QC: 4 Gait Persons Needed: 1 Gait Assistive Device: Cane Single Point Wheelchair Training Does the Pt Use a Wheelchair?: No Distance: 120' Wheel 50 ft with 2 turns (QC): 4 Wheel 150 ft (QC): 88 Type of Wheelchair: N/A Stair Training #of Steps: 1 1 Step (curb) (QC): 4 4 Steps (QC): 88 12 Steps (QC): 88 Balance Picking up an Object (QC): 4 ADL-Treatment Eating (QC): 6 (IND per pt report.) Oral Hygiene (QC): 6 (IND standing at sink.) Shower/Bathe Self (QC): 4 (Pt required SBA when standing to wash backside and brii area. Pt was able to wash/dry all parts effectively. ) Upper Body Dressing (QC): 6 (IND) Lower Body Dressing (QC): 4 (Pt performed while seated in w/c required SBA when standing to doff/deedee LD garments. ) On/Off Footwear (QC): 6 (Pt performed while seated in w/c at IND.) Toileting Hygiene (QC): 4 (Pt requried SBA for pant hike.) Toilet Transfer (QC): 4 (Pt requried SBA for safety. ) Assessment/Plan Assessment and Plan Assess & Plan/Chief Complaint Assessment: VA with right-sided weakness Hypertension Hyperlipidemia Chronic kidney disease IBS Nausea and vomiting on 02/17/2021 requiring IV Zofran and IV fluids Plan: Rehab protocol Aggressive therapy Home meds Metamucil at night 02/17/2021: Nausea and vomiting management Monitor closely 02/18/2021: Discontinue IV Supportive care 02/19/21: Dramatic improvement Fall risk 02/20/21: Doing well Increased independence 02/21/21: Improved overall Await plan from team 02/22/2021: Supportive care Aggressive therapy 02/23/2021: Remain in independent room Discharge plan next week (1) Pulmonary hypertension Assessment & Plan: Exact etiology unclear. She is a lifelong non-smoker although did have a significant secondhand exposure to cigarette smoking. She has no history of pulmonary disease. She does not have any pulmonary symptoms. I would suggest that we obtain a follow-up echocardiogram in 3-6 months. I do not see any indication for an extensive evaluation for secondary causes of pul monary hypertension at this point in time. (2) Left middle cerebral artery stroke Assessment & Plan: This was initially thought to be due to atheroembolic disease from the carotid arteries that may have embolized. However, her invasive carotid angiogram did not show significant carotid stenosis. This does not exclude atheroembolic disease. However, this also raises a question of possible cardiac source of embolism. Once she recovers from the stroke and is discharged home, we may want to consider a 30-day event monitor to screen for paroxysmal atrial fibrillation. In the interim, she should continue on aspirin, clopidogrel and statin medication (3) Thoracic aortic aneurysm without rupture Assessment & Plan: This was an incidental finding on her echocardiogram at the outside facility. This is in a mild range. This will need to be followed longitudinally. (4) Atherosclerosis of both carotid arteries Assessment & Plan: As above, she was found to have bilateral atherosclerosis with no significant stenosis. Continue aspirin and statin medication. (5) Primary hypertension Assessment & Plan: Blood pressures are intermittently elevated. She is now out of the acute phase of the stroke. If her blood pressures remain elevated, she may need some adjustment to her antihypertensive medication. (6) Mixed hyperlipidemia Assessment & Plan: She had no previous history of hyperlipidemia but in light of the stroke and carotid atherosclerosis, she should continue statin medication LAZ DIALLO DO Feb 23, 2021 10:12
--- NOTE | 2021-02-23 10:32 | Occupational Ther Daily Note ---
OT Current Status-Daily Note Subjective Pt was seated on toilet upon OT arrival. Nurse stated pt just sat down to have a BM. Pt agreed to tx session. Mental Status/Objective Patient Orientation: Person, Place, Time, Situation ADL-Treatment Therapy Code Descriptions/Definitions Functional [place] Measure: 0=Not Assessed/NA 4=Minimal Assistance 1=Total Assistance 5=Supervision or Setup 2=Maximal Assistance 6=Modified [place] 3=Moderate Assistance 7=Complete IndependenceSCALE: Activities may be completed with or without assistive devices. 9-Jpstfqjcqp-xgknaet completes the activity by him/herself with no assistance from a helper. 5-Set-up or Clean-up Assistance-helper sets up or cleans up; patient completes activity. [place] assists only prior to or following the activity. 4-Supervision or Touching Assistance-helper provides verbal cues and/or touching/steadying and/or contact guard assistance as patient completes activity. Assistance may be provided throughout the activity or intermittently. 3-Partial/Moderate Assistance-helper does LESS THAN HALF the effort. [place] lifts, holds or supports trunk or limbs, but provides less than half the effort. 2-Substantial/Maximal Assistance-helper does MORE THAN HALF the effort. [place] lifts or holds trunk or limbs and provides more than half the effort. 0-Jyhzvuozb-pmbvbo does ALL the effort. Patient does none of the effort to complete the activity. Or, the assistance of 2 or more helpers is required for the patient to complete the activity. If activity was not attempted, code reason: 7-Patient Refused. 9-Not Applicable-not attempted and the patient did not perform the activity before the current illness, exacerbation or injury. 10-Not Attempted due to Environmental Limitations-(lack of equipment, weather restraints, etc.). 88-Not Attempted due to Medical Conditions or Safety Concerns. Eating (QC): 6 (Per pt, IND.) Oral Hygiene (QC): 6 (Pt was IND.) Upper Body Dressing (QC): 6 (Pt was able to retrieve UB garments, deedee/doff, at IND.) Lower Body Dressing (QC): 4 (Pt required SBA for pant hike.) On/Off Footwear: 6 (Pt was able to retrieve socks and gripper slippers, deedee/doff, at IND.) Toileting Hygiene (QC): 4 (Pt required SBA for Pant hike.) Toilet Transfer (QC): 4 (Pt required SBA for safety. ) Other Treatment Pt was seated on toilet upon OT arrival. Nurse stated pt had just sat down to have a BM. Pt agreed to tx session. Pt performed toileting task, oral hygiene, and grooming in bathroom w/ FWW, see above QC's. Pt performed functional mobility w/ FWW at SBA for safety from bathroom to closet to retrieve UB and LB garments, from closet to chair, then seated in chair. Pt performed UBD, LBD, and footwear, see above QC's. Pt requested that her laundry needed done. Pt performed functional mobility from chair to laundry room at SBA. Pt participated in loading the washer with her garments to wash, supporting standing balance, crossing midline, and IADL function. Pt performed functional mobility from laundry room to therapy gym and seated in chair at SBA w/ FWW. Pt participated in colored peg and peg board activity w/ 1lb weighted wrist weights, completing 27/100, while rotating L hand and R hand, 1/2 seated and 1/2 standing at SBA, to support crossing midline, FMC, standing balance, strength and endurance w/ ADL function and skill. Pt then performed functional mobility from therapy gym to room to chair. Post tx session, pt was seated in chair, call light within reach, and all needs met. Education OT Patient Education: Energy conservation, Progress toward Goal/Update tx plan, Purpose of tx/functional activities Teaching Recipient: Patient Teaching Methods: Demonstration, Discussion Response to Teaching: Verbalize Understanding, Return Demonstration OT Short Term Goals Short Term Goals Time Frame: Mar 01, 2021 Toileting hygiene: 45 Shower/bathe self: 4 Upper body dressin Lower body dressin Putting on/taking off footwear: 4 OT Wire Frame Lamp Shade Maker Goals Half-Way Goals Time Frame: Mar 10, 2021 Eating (QC): 6 Oral Hygiene (QC): 6 Toileting Hygiene (QC): 6 Shower/Bathe Self (QC): 6 Upper Body Dressing (QC): 6 Lower Body Dressing (QC): 6 On/Off Footwear (QC): 6 Additional Goals: 1-Demonstrate ADL Tasks, 2-Verbalize Understanding, 3- ImproveStrength/Bull 1=Demonstrate adherence to instructed precautions during ADL tasks. 2=Patient will verbalize/demonstrate understanding of assistive d evices/modifications for ADL. 3=Patient will improve strength/tolerance for activity to enable patient to perform ADL's. OT Education/Plan Problem List/Assessment Assessment: Decreased Activ Tolerance, Decreased UE Strength, Impaired Coordination, Impaired Funct Balance, Impaired I ADL's, Impaired Self-Care Skills Discharge Recommendations Plan/Recommendations: Continue POC Treatment Plan/Plan of Care Patient would benefit from OT for education, treatment and training to promote independence in ADL's, mobility, safety and/or upper extremity function for ADL's. Plan of Care: ADL Retraining, Functional Mobility, Group Exercise/Act as Ind, UE Funct Exercise/Act Treatment Duration: Mar 10, 2021 Frequency: At least 5 of 7 days/Wk (IRF) Estimated Hrs Per Day: 1.5 hours per day Agreement: Yes Rehab Potential: Fair Time/GCodes Start Time: 08:00 Stop Time: 09:00 Total Time Billed (hr/min): 60 Billed Treatment Time 1 Visit, ADL 3 (40'), FA (20') MAGDIEL GREER OT Feb 23, 2021 10:31
--- NOTE | 2021-02-23 11:14 | Physical Therapy Daily Note ---
PT Daily Note-Current Subjective Pt sitting in recliner upon arrival. Pt agrees to PT. Pain Location: No Pain Reported Mental Status Patient Orientation: Person, Place, Time, Situation Transfers SCALE: Activities may be completed with or without assistive devices. 2-Tckdwnxmin-tdmvrxe completes the activity by him/herself with no assistance from a helper. 5-Set-up or Clean-up Assistance-helper sets up or cleans up; patient completes activity. [place] assists only prior to or following the activity. 4-Supervision or Touching Assistance-helper provides verbal cues and/or touching/steadying and/or contact guard assistance as patient completes activity. Assistance may be provided throughout the activity or intermittently. 3-Partial/Moderate Assistance-helper does LESS THAN HALF the effort. [place] lifts, holds or supports trunk or limbs, but provides less than half the effort. 2-Substantial/Maximal Assistance-helper does MORE THAN HALF the effort. [place] lifts or holds trunk or limbs and provides more than half the effort. 5-Rvpcpwywg-grnqfv does ALL the effort. Patient does none of the effort to complete the activity. Or, the assistance of 2 or more helpers is required for the patient to complete the activity. If activity was not attempted, code reason: 7-Patient Refused. 9-Not Applicable-not attempted and the patient did not perform the activity bef ore the current illness, exacerbation or injury. 10-Not Attempted due to Environmental Limitations-(lack of equipment, weather r estraints, etc.). 88-Not Attempted due to Medical Conditions or Safety Concerns. Sit to Stand (QC): 6 Toilet Transfer (QC): 6 Weight Bearing Full Weight Bearing Full Weight Bearing Gait Training Does the Patient Walk?: Yes Distance: 175' x2 Walk 10 feet (QC): 5 Walk 50 ft with 2 Turns(QC): 5 Walk 150 ft (QC): 5 Gait Persons Needed: 0 Gait Assistive Device: FWW Per yesterday's PT note, pt felt more comfortable w/FWW instead of SPC so will slowly integrate SPC for short distance use at home. Wheelchair Training Does the Pt Use a Wheelchair?: No Exercises NuStep Minutes: 17 NuStep Workload: 5 Treatments [id number]: TF to standing and amb. in hallway. Pt uses NuStep for 17m at WL 5 then RB before amb. back to room to use BR. Pt also completes Tub Transfer Bench transfer and rests in recliner at end of tx. All needs met, call light in hand. [id number]: TF to standing and amb. in hallway. Pt practices with SPC again and feels more comfortable today with more practice. Pt will continue to use FWW w/Nursing and practice SPC w/Therapy. Pt returns to room to use BR. Pt is Ad catherine in room and Nurse is notified. Assessment Current Status: Good Progress Pt is gaining strength and independence with mobility. PT Short Term Goals Short Term Goals Time Frame: Feb 23, 2021 Roll Left & Right: 6 Sit to lyin Lying to sitting on side of be: 6 Sit to stand: 4 (SBA) Chair/gdb-qu-bvwpx transfer: 4 (SBA) Walk 10 feet: 4 (SBA) Walk 50 feet with two turns: 4 (SBA) PT Linux Unix Administrator Goals Linux Unix Administrator Goals PT Long-Term Goals Time Frame: Mar 09, 2021 Roll Left & Right (QC): 6 Sit to Lying (QC): 6 Lying-Sitting on Side/Bed(QC): 6 Sit to Stand (QC): 6 Chair/Kaf-jh-Zznyu Xfer(QC): 6 Toilet Transfer (QC): 6 Car Transfer (QC): 5 Does the Patient Walk: Yes Walk 10 feet (QC): 6 Walk 50ft with 2 Turns (QC): 6 Walk 150 ft (QC): 6 Walking 10ft on Uneven Surface: 6 1 Step (curb) (QC): 4 4 Steps (QC): 4 12 Steps (QC): 88 Picking up an Object (QC): 4 Wheel 50 feet with 2 turns (QC: 9 Wheel 150 feet: 9 PT Plan Treatment/Plan Treatment Plan: Continue Plan of Care Treatment Plan: Bed Mobility, Education, Functional Activity Bull, Functional Strength, Group Therapy, Gait, Safety, Therapeutic Exercise, Transfers Treatment Duration: Mar 09, 2021 Frequency: At least 5 of 7 days/Wk (IRF) Estimated Hrs Per Day: 1.5 hours per day Patient and/or Family Agrees t: Yes Safety Risks/Education Patient Education: Gait Training, Transfer Techniques Teaching Recipient: Patient Teaching Methods: Discussion Response to Teaching: Verbalize Understanding Time/GCodes Time In: 930 Time Out: 1015 Total Billed Treatment Time: 45 Total Billed Treatment 930-1015: 1, GT (15m), FA (10m) & EX (20m) [id number]: 1, FA (15m) & GT x2 (30m) JOSUÉ MONTELONGO GRID INSPECTOR Feb 23, 2021 11:14
--- NOTE | 2021-02-23 13:46 | Occupational Ther Daily Note ---
OT Current Status-Daily Note Subjective Pt was seated in chair upon OT arrival. Pt stated she was ready for her tx session. Pt family member showed up in the middle of tx session. Mental Status/Objective Patient Orientation: Person, Place, Time, Situation ADL-Treatment Therapy Code Descriptions/Definitions Functional [place] Measure: 0=Not Assessed/NA 4=Minimal Assistance 1=Total Assistance 5=Supervision or Setup 2=Maximal Assistance 6=Modified [place] 3=Moderate Assistance 7=Complete IndependenceSCALE: Activities may be completed with or without assistive devices. 6-Psoinbfhyd-mtodgcw completes the activity by him/herself with no assistance from a helper. 5-Set-up or Clean-up Assistance-helper sets up or cleans up; patient completes activity. [place] assists only prior to or following the activity. 4-Supervision or Touching Assistance-helper provides verbal cues and/or touching/steadying and/or contact guard assistance as patient completes act ivity. Assistance may be provided throughout the activity or intermittently. 3-Partial/Moderate Assistance-helper does LESS THAN HALF the effort. [place] lifts, holds or supports trunk or limbs, but provides less than half the effort. 2-Substantial/Maximal Assistance-helper does MORE THAN HALF the effort. [place] lifts or holds trunk or limbs and provides more than half the effort. 7-Fajrcrjgc-shfsxj does ALL the effort. Patient does none of the effort to complete the activity. Or, the assistance of 2 or more helpers is required for the patient to complete the activity. If activity was not attempted, code reason: 7-Patient Refused. 9-Not Applicable-not attempted and the patient did not perform the activity before the current illness, exacerbation or injury. 10-Not Attempted due to Environmental Limitations-(lack of equipment, weather restraints, etc.). 88-Not Attempted due to Medical Conditions or Safety Concerns. Other Treatment Pt was seated in chair upon OT arrival. Pt stated she was ready for her tx session. Pt family member showed up in the middle of tx session. Pt participated while seated in chair in thera band mild resistance exercises, 1 round, 15 reps, to support strength and endurance: shoulder flexion, shoulder abduction, shoulder external rotation, shoulder horizontal abduction, elbow flexion, and elbow extension. Pt performed w/ FWW at SBA and [facility] when reaching low, retrieving x6 cones from places in room x2 rounds to support static standing balance, dynamic standing balance, room scanning, bending, twisting, crossing midline, ROM in all angles for ADL's. Post tx session, pt was seated in chair, call light within reach, and all needs met. Education OT Patient Education: Correct positioning, Energy conservation, Exercise program, Home exercise program, Modified ADL techniques, Progress toward Goal/Update tx plan, Purpose of tx/functional activities Teaching Recipient: Patient, Family Teaching Methods: Demonstration, Discussion Response to Teaching: Verbalize Understanding, Return Demonstration OT Short Term Goals Short Term Goals Time Frame: Mar 01, 2021 Toileting hygiene: 45 Shower/bathe self: 4 Upper body dressin Lower body dressin Putting on/taking off footwear: 4 OT Chcf Goals Copyist Goals Time Frame: Mar 10, 2021 Eating (QC): 6 Oral Hygiene (QC): 6 Toileting Hygiene (QC): 6 Shower/Bathe Self (QC): 6 Upper Body Dressing (QC): 6 Lower Body Dressing (QC): 6 On/Off Footwear (QC): 6 Additional Goals: 1-Demonstrate ADL Tasks, 2-Verbalize Understanding, 3- ImproveStrength/Bull 1=Demonstrate adherence to instructed precautions during ADL tasks. 2=Patient will verbalize/demonstrate understanding of assistive devices/m odifications for ADL. 3=Patient will improve strength/tolerance for activity to enable patient to perform ADL's. OT Education/Plan Problem List/Assessment Assessment: Decreased Activ Tolerance, Decreased UE Strength, Impaired Funct Balance, Impaired I ADL's, Impaired Self-Care Skills Discharge Recommendations Plan/Recommendations: Continue POC Treatment Plan/Plan of Care Patient would benefit from OT for education, treatment and training to promote independence in ADL's, mobility, safety and/or upper extremity function for ADL's. Plan of Care: ADL Retraining, Functional Mobility, Group Exercise/Act as Ind, UE Funct Exercise/Act Treatment Duration: Mar 10, 2021 Frequency: At least 5 of 7 days/Wk (IRF) Estimated Hrs Per Day: 1.5 hours per day Agreement: Yes Rehab Potential: Fair Time/GCodes Start Time: 13:00 Stop Time: 13:30 Total Time Billed (hr/min): 30 Billed Treatment Time 1 Visit, EX (15'), FA (15') MAGDIEL GREER OT Feb 23, 2021 13:46
[2021-02-23] MEDS: MELATONIN 10 MG TABLET PO SCH (19:36)
[2021-02-23 19:49] VITALS: BP 117/51
[2021-02-23] MEDS: PSYLLIUM POWDER (METAMUCIL) 5.8 GM PACKET PO SCH (20:04)
--- NOTE | 2021-02-24 06:11 | PM&R Progress Note ---
Subjective HPI/CC On Admission Date Seen by Provider: Feb 24, 2021 Time Seen by Provider: 06:00 Subjective/Events-last exam 02/24/21: Pt sleeping right now Nurses have no concerns Checked meds and labs No falls 02/23/2021: Patient doing well and independent room No major issues Large BM this morning Check meds and labs 02/22/2021: Patient doing very well No pain is reported Participated in aggressive therapy We will work on tub bench in order to shower at home 02/21/21: Patient doing well No pain reported Checked meds and labs Improved transfers and use of right arm 02/20/21: Patient doing well Potassium 3.3 No pain reported Functioning well Participating well 02/19/21: No major issues Dramatically improved Right hand much improved Check meds and labs 02/18/2021: Patient doing really well Pain is controlled Discontinue the Hep-Lock since no more nausea or vomiting Check meds and labs Irritable bowel management 02/17/2021: Patient doing really well today Had a vomiting episode while in therapy so started gentle IV fluids and Zofran IV Blood pressure stable Headaches are daily Able to participate Review of Systems General: Fatigue, Malaise Neurological: Weakness Objective Exam Vital Signs Vital Signs Date Time Temp Pulse Resp B/P (MAP) Pulse Ox O2 Delivery O2 Flow Rate FiO2 02/24/21 20:16 Room Air 02/24/21 19:58 36.9 70 18 118/57 (77) 98 Capillary Refill : General Appearance: No Apparent Distress, WD/WN, Chronically ill HEENT: PERRL/EOMI, Normal ENT Inspection, Pharynx Normal Neck: Full Range of Motion, Normal Inspection, Non Tender, Supple, Carotid Bruit Respiratory: Chest Non Tender, Lungs Clear, Normal Breath Sounds, No Accessory Muscle Use, No Respiratory Distress Cardiovascular: Regular Rate, Rhythm, No Edema, No Gallop, No JVD, No Murmur, Normal Peripheral Pulses Gastrointestinal: Normal Bowel Sounds, No Organomegaly, No Pulsatile Mass, Non Tender, Soft Back: Normal Inspection, No CVA Tenderness, No Vertebral Tenderness Extremity: Normal Capillary Refill, Normal Inspection, Normal Range of Motion, Non Tender, No Calf Tenderness, No Pedal Edema Neurologic/Psychiatric: Alert, Oriented x3, Normal Mood/Affect, clinical team lead II-XII Norm as Tested, Abnormal Gait, Motor Weakness (Right upper extremity weakness 3/5) Skin: Normal Color, Warm/Dry Lymphatic: No Adenopathy Results/Procedures Lab Patient resulted labs reviewed. FIM Transfers Therapy Code Descriptions/Definitions Functional [place] Measure: 0=Not Assessed/NA 4=Minimal Assistance 1=Total Assistance 5=Supervision or Setup 2=Maximal Assistance 6=Modified [place] 3=Moderate Assistance 7=Complete IndependenceSCALE: Activities may be completed with or without assistive devices. 2-Ahtdugkbif-egopifj completes the activity by him/herself with no assistance from a helper. 5-Set-up or Clean-up Assistance-helper sets up or cleans up; patient completes activity. [place] assists only prior to or following the activity. 4-Supervision or Touching Assistance-helper provides verbal cues and/or touching/steadying and/or contact guard assistance as patient completes activi ty. Assistance may be provided throughout the activity or intermittently. 3-Partial/Moderate Assistance-helper does LESS THAN HALF the effort. [place] lifts, holds or supports trunk or limbs, but provides less than half the effort. 2-Substantial/Maximal Assistance-helper does MORE THAN HALF the effort. [place] lifts or holds trunk or limbs and provides more than half the effort. 5-Wdgvllanv-nasgzh does ALL the effort. Patient does none of the effort to complete the activity. Or, the assistance of 2 or more helpers is required for the patient to complete the activity. If activity was not attempted, code reason: 7-Patient Refused. 9-Not Applicable-not attempted and the patient did not perform the activity before the current illness, exacerbation or injury. 10-Not Attempted due to Environmental Limitations-(lack of equipment, weather restraints, etc.). 88-Not Attempted due to Medical Conditions or Safety Concerns. Roll Left to Right (QC): 6 Sit to Lying (QC): 6 Sit to Stand (QC): 6 Chair/Nvk-jp-Rsocb Xfer(QC): 4 Car Transfer (QC): 3 Gait Training Does the Patient Walk?: Yes Distance: 175' x2 Walk 10 feet (QC): 5 Walk 50 ft with 2 Turns(QC): 5 Walk 150 ft (QC): 5 Walking 10ft/uneven surface-QC: 4 Gait Persons Needed: 0 Gait Assistive Device: FWW Wheelchair Training Does the Pt Use a Wheelchair?: No Distance: 120' Wheel 50 ft with 2 turns (QC): 4 Wheel 150 ft (QC): 88 Type of Wheelchair: N/A Stair Training #of Steps: 1 1 Step (curb) (QC): 4 4 Steps (QC): 88 12 Steps (QC): 88 Balance Picking up an Object (QC): 4 ADL-Treatment Eating (QC): 6 (Per pt, IND.) Oral Hygiene (QC): 6 (Pt was IND.) Shower/Bathe Self (QC): 4 (Pt required SBA when standing to wash backside and brii area. Pt was able to wash/dry all parts effectively. ) Upper Body Dressing (QC): 6 (Pt was able to retrieve UB garments, deedee/doff, at IND.) Lower Body Dressing (QC): 4 (Pt required SBA for pant hike.) On/Off Footwear (QC): 6 (Pt was able to retrieve socks and gripper slippers, deedee/doff, at IND.) Toileting Hygiene (QC): 4 (Pt required SBA for Pant hike.) Toilet Transfer (QC): 4 (Pt required SBA for safety. ) Assessment/Plan Assessment and Plan Assess & Plan/Chief Complaint Assessment: VA with right-sided weakness Hypertension Hyperlipidemia Chronic kidney disease IBS Nausea and vomiting on 02/17/2021 requiring IV Zofran and IV fluids Plan: Rehab protocol Aggressive therapy Home meds Metamucil at night 02/17/2021: Nausea and vomiting management Monitor closely 02/18/2021: Discontinue IV Supportive care 02/19/21: Dramatic improvement Fall risk 02/20/21: Doing well Increased independence 02/21/21: Improved overall Await plan from team 02/22/2021: Supportive care Aggressive therapy 02/23/2021: Remain in independent room Discharge plan next week 02/24/21: DC Saturday? Continue treatment (1) Pulmonary hypertension Assessment & Plan: Exact etiology unclear. She is a lifelong non-smoker although did have a significant secondhand exposure to cigarette smoking. She has no history of pulmonary disease. She does not have any pulmonary symptoms. I would suggest that we obtain a follow-up echocardiogram in 3-6 months. I do not see any indication for an extensive evaluation for secondary causes of pulmonary hypertension at this point in time. (2) Left middle cerebral artery stroke Assessment & Plan: This was initially thought to be due to atheroembolic disease from the carotid arteries that may have embolized. However, her invasive carotid angiogram did not show significant carotid stenosis. This does not exclude atheroembolic disease. However, this also raises a question of possible cardiac source of embolism. Once she recovers from the stroke and is discharged home, we may want to consider a 30-day event monitor to screen for paroxysmal atrial fibrillation. In the interim, she should continue on aspirin, clopidogrel and statin medication (3) Thoracic aortic aneurysm without rupture Assessment & Plan: This was an incidental finding on her echocardiogram at the outside facility. This is in a mild range. This will need to be followed longitudinally. (4) Atherosclerosis of both carotid arteries Assessment & Plan: As above, she was found to have bilateral atherosclerosis with no significant stenosis. Continue aspirin and statin medication. (5) Primary hypertension Assessment & Plan: Blood pressures are intermittently elevated. She is now out of the acute phase of the stroke. If her blood pressures remain elevated, she may need some adjustment to her antihypertensive medication. (6) Mixed hyperlipidemia Assessment & Plan: She had no previous history of hyperlipidemia but in light of the stroke and carotid atherosclerosis, she should continue statin medication LAZ DIALLO DO Feb 24, 2021 06:11
[2021-02-24] MEDS: MULTIVIT W/MINERALS TAB (THERAGRAN M) PO SCH (07:00)
[2021-02-24] MEDS: KCL 10 MEQ TAB (MICRO K) PO SCH (07:00)
[2021-02-24] MEDS: KCL 20 MEQ TAB (K-DUR) PO SCH (07:00)
[2021-02-24 07:36] VITALS: BP 129/60
--- NOTE | 2021-02-24 08:54 | Cardiology Progress Note ---
Progress Note-Cardiology Events since last exam Date Seen by Provider: Feb 24, 2021 Time Seen by Provider: 08:53 Events since last exam I am following her due to cerebrovascular accident. She is gradually progressing. She has been weak so discharge is not planned until next week. She denies recurrent neurologic symptoms. Her strength is gradually improving. She denies chest pain, dyspnea, palpitations, syncope, or ankle edema. Certain portions of this document may have been dictated utilizing voice recognition technology. Inherent to this technology, typographical and grammatical errors may exist. As much as I am diligent to identify and correct these mistakes, some errors may remain in the document. Vitals Last set of Vitals Signs Vital Signs 02/24/21 07:36 Temp 36.9 Pulse 70 Resp 16 B/P (MAP) 129/60 (83) Pulse Ox 93 O2 Delivery Room Air Exam Vital Signs Vital Signs Date Time Temp Pulse Resp B/P (MAP) Pulse Ox O2 Delivery O2 Flow Rate FiO2 02/24/21 07:36 36.9 70 16 129/60 (83) 93 Room Air Physical Exam General: Alert. No acute distress. Eye: No xanthelasma. HENT: Normocephalic. Neck: Jugular venous pressure does not appear elevated. Respiratory: Lungs are clear to auscultation. Respirations are non-labored. Breath sounds are equal. Symmetrical chest wall expansion. Cardiovascular: Normal rate. Regular rhythm. No murmur. No gallop. No edema. Gastrointestinal: Soft. Normal bowel sounds. Skin: Warm. Dry. Neurologic: Alert and oriented to person, place, time. Cranial nerves 3-11 grossly intact. Psychiatric: Cooperative. Appropriate mood & affect. Diagnosis/Problems Diagnosis/Problems (1) Left middle cerebral artery stroke Assessment & Plan: This was initially thought to be due to atheroembolic disease from the carotid arteries that may have embolized. However, her invasive carotid angiogram did not show significant carotid stenosis. This does not exclude atheroembolic disease. However, this also raises a question of possible cardiac source of embolism. Once she recovers from the stroke and is discharged home, I will plan on a 30-day event monitor to screen for paroxysmal atrial fibrillation. I will then plan to see her in the office after the test is completed. My office will make these arrangements. In the interim, she should continue on aspirin, clopidogrel and statin medication. At this point in time, there do not appear to be any acute, active cardiac issues. As such, cardiology will sign off. Please call if you have other questions or concerns. (2) Pulmonary hypertension Assessment & Plan: Her previous echocardiogram showed pulmonary hypertension. Exact etiology unclear. She is a lifelong non-smoker although did have a significant secondhand exposure to cigarette smoking. She has no history of pulmonary disease. She does not have any pulmonary symptoms. I would suggest that we obtain a follow-up echocardiogram in 3-6 months. I do not see any indication for an extensive evaluation for secondary causes of pulmonary hypertension at this point in time. (3) Thoracic aortic aneurysm without rupture Assessment & Plan: This was an incidental finding on her echocardiogram at the outside facility. This is in a mild range. This will need to be followed longitudinally. (4) Atherosclerosis of both carotid arteries Assessment & Plan: As above, she was found to have bilateral atherosclerosis with no significant stenosis. Continue aspirin and statin medication. (5) Primary hypertension Assessment & Plan: Her blood pressures have improved during this hospitalization. (6) Mixed hyperlipidemia Assessment & Plan: She had no previous history of hyperlipidemia but in light of the stroke and carotid atherosclerosis, she should continue statin medication RYAN DIAS JR, MD Feb 24, 2021 08:54
--- NOTE | 2021-02-24 09:00 | Occupational Ther Daily Note ---
OT Current Status-Daily Note Subjective Pt was seated in chair upon OT arrival. Pt had already gathered her garments for UBD and LBD. Pt stated she was ready for tx session. Mental Status/Objective Patient Orientation: Person, Place, Time, Situation ADL-Treatment Therapy Code Descriptions/Definitions Functional [place] Measure: 0=Not Assessed/NA 4=Minimal Assistance 1=Total Assistance 5=Supervision or Setup 2=Maximal Assistance 6=Modified [place] 3=Moderate Assistance 7=Complete IndependenceSCALE: Activities may be completed with or without assistive devices. 8-Mhstsetvkx-ymxxlvc completes the activity by him/herself with no assistance from a helper. 5-Set-up or Clean-up Assistance-helper sets up or cleans up; patient completes activity. [place] assists only prior to or following the activity. 4-Supervision or Touching Assistance-helper provides verbal cues and/or touching/steadying and/or contact guard assistance as patient completes activity. Assistance may be provided throughout the activity or intermittently. 3-Partial/Moderate Assistance-helper does LESS THAN HALF the effort. [place] lifts, holds or supports trunk or limbs, but provides less than half the effort. 2-Substantial/Maximal Assistance-helper does MORE THAN HALF the effort. [place] lifts or holds trunk or limbs and provides more than half the effort. 0-Gvjcmwpaz-ddzngv does ALL the effort. Patient does none of the effort to complete the activity. Or, the assistance of 2 or more helpers is required for the patient to complete the activity. If activity was not attempted, code reason: 7-Patient Refused. 9-Not Applicable-not attempted and the patient did not perform the activity before the current illness, exacerbation or injury. 10-Not Attempted due to Environmental Limitations-(lack of equipment, weather restraints, etc.). 88-Not Attempted due to Medical Conditions or Safety Concerns. Eating (QC): 6 (IND per pt report.) Oral Hygiene (QC): 6 (Pt was IND) Shower/Bathe Self (QC): 6 (Pt was IND, wash/dry all parts) Upper Body Dressing (QC): 6 (Pt was IND.) Lower Body Dressing (QC): 6 (Pt was IND.) On/Off Footwear: 6 (Pt was IND.) Toileting Hygiene (QC): 6 (Pt was IND.) Toilet Transfer (QC): 6 (Pt was IND.) Other Treatment Pt was seated in chair upon OT arrival. Pt had already gathered her garments for UBD and LBD. Pt stated she was ready for tx session. Pt performed functional mobility from chair to SC w/ FWW, IND. Pt performed shower task, UBD, and LBD, see above QC's. Pt performed functional mobility from SC to sink at IND for oral hygiene and grooming task, see above QC. Pt performed functional mobility from sink to toilet IND for toileting task, see above QC. Pt performed functional mobility from toilet to chair in room at IND. Pt participated while seated in UBE exercises, minimal resistance thera band, x15 reps to support strength and endurance in ADL function in each of the following: shoulder flexion, shoulder abduction, shoulder external rotation, shoulder horizontal abduction, elbow flexion, and elbow extension. Post tx session, pt was seated in chair, call light within reach, and all needs met. Education OT Patient Education: Energy conservation, Exercise program, Home exercise program, Progress toward Goal/Update tx plan, Purpose of tx/functional activities, Safety issues Teaching Recipient: Patient Teaching Methods: Demonstration, Handout, Discussion Response to Teaching: Verbalize Understanding, Return Demonstration OT Short Term Goals Short Term Goals Time Frame: Mar 01, 2021 Toileting hygiene: 45 Shower/bathe self: 4 Upper body dressin Lower body dressin Putting on/taking off footwear: 4 OT Mcc Goals Newspaper Editor Goals Time Frame: Mar 10, 2021 Eating (QC): 6 Oral Hygiene (QC): 6 Toileting Hygiene (QC): 6 Shower/Bathe Self (QC): 6 Upper Body Dressing (QC): 6 Lower Body Dressing (QC): 6 On/Off Footwear (QC): 6 Additional Goals: 1-Demonstrate ADL Tasks, 2-Verbalize Understanding, 3- ImproveStrength/Bull 1=Demonstrate adherence to instructed precautions during ADL tasks. 2=Patient will verbalize/demonstrate understanding of assistive devices/modifications for ADL. 3=Patient will improve strength/tolerance for activity to enable patient to perform ADL's. OT Education/Plan Problem List/Assessment Assessment: Decreased Activ Tolerance, Decreased UE Strength, Impaired Funct Balance, Impaired I ADL's, Impaired Self-Care Skills Discharge Recommendations Plan/Recommendations: Continue POC Treatment Plan/Plan of Care Patient would benefit from OT for education, treatment and training to promote independence in ADL's, mobility, safety and/or upper extremity function for ADL's. Plan of Care: ADL Retraining, Functional Mobility, Group Exercise/Act as Ind, UE Funct Exercise/Act Treatment Duration: Mar 10, 2021 Frequency: At least 5 of 7 days/Wk (IRF) Estimated Hrs Per Day: 1.5 hours per day Agreement: Yes Rehab Potential: Fair Time/GCodes Start Time: 08:00 Stop Time: 09:00 Total Time Billed (hr/min): 60 Billed Treatment Time 1 Visit, ADL 3 (45'), EX (15') MAGDIEL GREER OT Feb 24, 2021 09:00
[2021-02-24] MEDS: ASPIRIN 81 MG CHEW (CHILDREN'S ASA) PO SCH (09:39)
[2021-02-24] MEDS: ASCORBIC ACID (VIT C) 500 MG TABLET PO SCH (09:39)
[2021-02-24] MEDS: CLOPIDOGREL 75 MG (PLAVIX) TABLET PO SCH (09:39)
[2021-02-24] MEDS: VITAMIN D3 25 MCG (1,000 UNITS) TABLET PO SCH (09:39)
[2021-02-24] MEDS: lisINopril 40 MG (PRINIVIL) TABLET PO SCH (09:39)
[2021-02-24] MEDS: SENNA W/DOCUSATE (SENOKOT S) TABLET PO SCH ×2 (09:40→18:52)
[2021-02-24] MEDS: polyethylene glycoL POWDER 17 GM (MIRALAX) PACK PO SCH ×2 (09:40→18:52)
[2021-02-24] MEDS: DOCUSATE SODIUM 100 MG (COLACE) CAP PO SCH ×2 (09:40→18:52)
--- NOTE | 2021-02-24 10:56 | Physical Therapy Daily Note ---
PT Daily Note-Current Subjective Pt in recliner upon arrival and agrees to tx. Pt has no c/o pain at this time. Mental Status Patient Orientation: Person, Place, Time, Situation Transfers SCALE: Activities may be completed with or without assistive devices. 5-Tlxpazfvox-hpmpbpk completes the activity by him/herself with no assistance from a helper. 5-Set-up or Clean-up Assistance-helper sets up or cleans up; patient completes activity. [place] assists only prior to or following the activity. 4-Supervision or Touching Assistance-helper provides verbal cues and/or touching/steadying and/or contact guard assistance as patient completes activity. Assistance may be provided throughout the activity or intermittently. 3-Partial/Moderate Assistance-helper does LESS THAN HALF the effort. [place] lifts, holds or supports trunk or limbs, but provides less than half the effort. 2-Substantial/Maximal Assistance-helper does MORE THAN HALF the effort. [place] lifts or holds trunk or limbs and provides more than half the effort. 8-Aejxmbmmb-bmmwka does ALL the effort. Patient does none of the effort to complete the activity. Or, the assistance of 2 or more helpers is required for the patient to complete the activity. If activity was not attempted, code reason: 7-Patient Refused. 9-Not Applicable-not attempted and the patient did not perform the activity before the current illness, exacerbation or injury. 10-Not Attempted due to Environmental Limitations-(lack of equipment, weather restraints, etc.). 88-Not Attempted due to Medical Conditions or Safety Concerns. Sit to Stand (QC): 5 Weight Bearing Full Weight Bearing Full Weight Bearing Gait Training Does the Patient Walk?: Yes Distance: 350' Walk 10 feet (QC): 5 Walk 50 ft with 2 Turns(QC): 5 Walk 150 ft (QC): 5 Gait Assistive Device: FWW Pt amb 350' with FWW, pt has slow but steady gait with no deviations noted at this time. Recommend pt use FWW for community amb and can use SPC for house amb when d/c. For now pt use FWW for longer distances and with nursing, SPC with therapy Exercises NuStep Minutes: 13 NuStep Workload: 6 Treatments Pt sit to stand from recliner and amb 350' SBA on ARU. Pt then enters therapy gym and completes NuStep on WL of 6 for 13 minutes. Pt then amb back to room and request to use bathroom. Pt ad cathreine in room, pt enters bathroom and was left with all needs met. Assessment Current Status: Good Progress Pt increasing endurance, strength, and mobility. Pt amb farther distances with FWW, SPC for short distances and only with therapy at this time. PT Short Term Goals Short Term Goals Time Frame: Feb 23, 2021 Roll Left & Right: 6 Sit to lyin Lying to sitting on side of be: 6 Sit to stand: 4 (SBA) Chair/ioz-ea-ztlzq transfer: 4 (SBA) Walk 10 feet: 4 (SBA) Walk 50 feet with two turns: 4 (SBA) PT Fdc Goals Fdc Goals PT Fdc Goals Time Frame: Mar 09, 2021 Roll Left & Right (QC): 6 Sit to Lying (QC): 6 Lying-Sitting on Side/Bed(QC): 6 Sit to Stand (QC): 6 Chair/Ldy-fz-Rqoor Xfer(QC): 6 Toilet Transfer (QC): 6 Car Transfer (QC): 5 Does the Patient Walk: Yes Walk 10 feet (QC): 6 Walk 50ft with 2 Turns (QC): 6 Walk 150 ft (QC): 6 Walking 10ft on Uneven Surface: 6 1 Step (curb) (QC): 4 4 Steps (QC): 4 12 Steps (QC): 88 Picking up an Object (QC): 4 Wheel 50 feet with 2 turns (QC: 9 Wheel 150 feet: 9 PT Plan Treatment/Plan Treatment Plan: Continue Plan of Care Treatment Plan: Bed Mobility, Education, Functional Activity Bull, Functional Strength, Group Therapy, Gait, Safety, Therapeutic Exercise, Transfers Treatment Duration: Mar 09, 2021 Frequency: At least 5 of 7 days/Wk (IRF) Estimated Hrs Per Day: 1.5 hours per day Patient and/or Family Agrees t: Yes Time/GCodes Time In: 1015 Time Out: 1100 Total Billed Treatment Time: 45 Total Billed Treatment 1, GT x2, EX ELAINA LY CAR PARK ATTENDANT Feb 24, 2021 10:56
--- NOTE | 2021-02-24 14:28 | Therapy Group Daily Note ---
Therapy Daily Group Note Patient Education Topic Home Safety, Fall Prevention, Home Safety, Exercises, Other List Below (Floor Transfer Education) Exercises LE Seated Exercise, UE Exercise Session Ratio (pt:therapist): 3:1 Goal of Session: Home Safety Strategies Goal Met for this Session: Yes Pt Benefit of Group: Contributions to Others, F/U Use of Strategies @Home, Increased Functional Safety, Increased Functional Strength, Improved Cognition, Recognition of Peers, Socialization Pt amb to [facility] for OT/PT group with FWW and CGA. Group consisted of introductions (name, place living, trouble in childhood), socialization, seated UE/LE exercises, and educational topics involving home safety, fall risk prevention, and floor transfers. Pt introduced self appropriately, actively listened to peers and complete B UE/LE seated exercises. Pt acknowledged understanding by verbalizing understanding and giving personal stories. Pt participated in a cognitive word activity. After session, pt amb back to room. Call light/phone in reach. All needs met in room. Start Time: 13:00 Stop Time: 14:15 Total Billed Treatment Time: 75 Total Billed Treatment 1, GRP ELAINA LY SIGNAL OPERATOR Feb 24, 2021 14:28
[2021-02-24] MEDS: MELATONIN 10 MG TABLET PO SCH (18:52)
[2021-02-24 19:58] VITALS: BP 118/57
[2021-02-24] MEDS: PSYLLIUM POWDER (METAMUCIL) 5.8 GM PACKET PO SCH (20:06)
--- NOTE | 2021-02-25 06:20 | PM&R Progress Note ---
Subjective HPI/CC On Admission Date Seen by Provider: Feb 25, 2021 Time Seen by Provider: 06:20 Subjective/Events-last exam 02/25/2021: Patient doing well Has no concerns Discharge is planned next week Will have an appoint with Dr. Whitley and he will help her decide when driving is safe Check meds and labs 02/24/21: Pt sleeping right now Nurses have no concerns Checked meds and labs No falls 02/23/2021: Patient doing well and independent room No major issues Large BM this morning Check meds and labs 02/22/2021: Patient doing very well No pain is reported Participated in aggressive therapy We will work on tub bench in order to shower at home 02/21/21: Patient doing well No pain reported Checked meds and labs Improved transfers and use of right arm 02/20/21: Patient doing well Potassium 3.3 No pain reported Functioning well Participating well 02/19/21: No major issues Dramatically improved Right hand much improved Check meds and labs 02/18/2021: Patient doing really well Pain is controlled Discontinue the Hep-Lock since no more nausea or vomiting Check meds and labs Irritable bowel management 02/17/2021: Patient doing really well today Had a vomiting episode while in therapy so started gentle IV fluids and Zofran IV Blood pressure stable Headaches are daily Able to participate Review of Systems Neurological: Weakness, Incoordination Objective Exam Vital Signs Vital Signs Date Time Temp Pulse Resp B/P (MAP) Pulse Ox O2 Delivery O2 Flow Rate FiO2 02/25/21 09:15 36.8 72 18 139/62 (87) 97 Room Air Capillary Refill : General Appearance: No Apparent Distress, WD/WN, Chronically ill HEENT: PERRL/EOMI, Normal ENT Inspection, Pharynx Normal Neck: Full Range of Motion, Normal Inspection, Non Tender, Supple, Carotid Bruit Respiratory: Chest Non Tender, Lungs Clear, Normal Breath Sounds, No Accessory Muscle Use, No Respiratory Distress Cardiovascular: Regular Rate, Rhythm, No Edema, No Gallop, No JVD, No Murmur, Normal Peripheral Pulses Gastrointestinal: Normal Bowel Sounds, No Organomegaly, No Pulsatile Mass, Non Tender, Soft Back: Normal Inspection, No CVA Tenderness, No Vertebral Tenderness Extremity: Normal Capillary Refill, Normal Inspection, Normal Range of Motion, Non Tender, No Calf Tenderness, No Pedal Edema Neurologic/Psychiatric: Alert, Oriented x3, Normal Mood/Affect, senior project architect II-XII Norm as Tested, Abnormal Gait, Motor Weakness (Right upper extremity weakness 3/5) Skin: Normal Color, Warm/Dry Lymphatic: No Adenopathy Results/Procedures Lab Patient resulted labs reviewed. FIM Transfers Therapy Code Descriptions/Definitions Functional [place] Measure: 0=Not Assessed/NA 4=Minimal Assistance 1=Total Assistance 5=Supervision or Setup 2=Maximal Assistance 6=Modified [place] 3=Moderate Assistance 7=Complete IndependenceSCALE: Activities may be completed with or without assistive devices. 0-Vaariehvdv-mtyqslg completes the activity by him/herself with no assistance from a helper. 5-Set-up or Clean-up Assistance-helper sets up or cleans up; patient completes activity. [place] assists only prior to or following the activity. 4-Supervision or Touching Assistance-helper provides verbal cues and/or touching/steadying and/or contact guard assistance as patient completes activi ty. Assistance may be provided throughout the activity or intermittently. 3-Partial/Moderate Assistance-helper does LESS THAN HALF the effort. [place] lifts, holds or supports trunk or limbs, but provides less than half the effort. 2-Substantial/Maximal Assistance-helper does MORE THAN HALF the effort. [place] lifts or holds trunk or limbs and provides more than half the effort. 8-Flowdwinv-yikxjy does ALL the effort. Patient does none of the effort to complete the activity. Or, the assistance of 2 or more helpers is required for the patient to complete the activity. If activity was not attempted, code reason: 7-Patient Refused. 9-Not Applicable-not attempted and the patient did not perform the activity before the current illness, exacerbation or injury. 10-Not Attempted due to Environmental Limitations-(lack of equipment, weather restraints, etc.). 88-Not Attempted due to Medical Conditions or Safety Concerns. Roll Left to Right (QC): 6 Sit to Lying (QC): 6 Sit to Stand (QC): 5 Chair/Gpv-ra-Xolng Xfer(QC): 4 Car Transfer (QC): 3 Gait Training Does the Patient Walk?: Yes Distance: 350' Walk 10 feet (QC): 5 Walk 50 ft with 2 Turns(QC): 5 Walk 150 ft (QC): 5 Walking 10ft/uneven surface-QC: 4 Gait Persons Needed: 0 Gait Assistive Device: FWW Wheelchair Training Does the Pt Use a Wheelchair?: No Distance: 120' Wheel 50 ft with 2 turns (QC): 4 Wheel 150 ft (QC): 88 Type of Wheelchair: N/A Stair Training #of Steps: 1 1 Step (curb) (QC): 4 4 Steps (QC): 88 12 Steps (QC): 88 Balance Picking up an Object (QC): 4 ADL-Treatment Eating (QC): 6 (IND per pt report.) Oral Hygiene (QC): 6 (Pt was IND) Shower/Bathe Self (QC): 6 (Pt was IND, wash/dry all parts) Upper Body Dressing (QC): 6 (Pt was IND.) Lower Body Dressing (QC): 6 (Pt was IND.) On/Off Footwear (QC): 6 (Pt was IND.) Toileting Hygiene (QC): 6 (Pt was IND.) Toilet Transfer (QC): 6 (Pt was IND.) Assessment/Plan Assessment and Plan Assess & Plan/Chief Complaint Assessment: VA with right-sided weakness Hypertension Hyperlipidemia Chronic kidney disease IBS Nausea and vomiting on 02/17/2021 requiring IV Zofran and IV fluids Plan: Rehab protocol Aggressive therapy Home meds Metamucil at night 02/17/2021: Nausea and vomiting management Monitor closely 02/18/2021: Discontinue IV Supportive care 02/19/21: Dramatic improvement Fall risk 02/20/21: Doing well Increased independence 02/21/21: Improved overall Await plan from team 02/22/2021: Supportive care Aggressive therapy 02/23/2021: Remain in independent room Discharge plan next week 02/24/21: DC Saturday? Continue treatment 02/25/2021: Supportive care Primary care provider establishment Dr. Bal (1) Left middle cerebral artery stroke Assessment & Plan: This was initially thought to be due to atheroembolic disease from the carotid arteries that may have embolized. However, her invasive carotid angiogram did not show significant carotid stenosis. This does not exclude atheroembolic disease. However, this also raises a question of possible cardiac source of embolism. Once she recovers from the stroke and is discharged home, I will plan on a 30-day event monitor to screen for paroxysmal atrial fibrillation. I will then plan to see her in the office after the test is completed. My office will make these arrangements. In the interim, she should continue on aspirin, clopidogrel and statin medication. At this point in time, there do not appear to be any acute, active cardiac issues. As such, cardiology will sign off. Please call if you have other questions or concerns. (2) Pulmonary hypertension Assessment & Plan: Her previous echocardiogram showed pulmonary hypertension. Exact etiology unclear. She is a lifelong non-smoker although did have a significant secondhand exposure to cigarette smoking. She has no history of pulmonary disease. She does not have any pulmonary symptoms. I would suggest that we obtain a follow-up echocardiogram in 3-6 months. I do not see any indication for an extensive evaluation for secondary causes of pulmonary hypertension at this point in time. (3) Thoracic aortic aneurysm without rupture Assessment & Plan: This was an incidental finding on her echocardiogram at the outside facility. This is in a mild range. This will need to be followed longitudinally. (4) Atherosclerosis of both carotid arteries Assessment & Plan: As above, she was found to have bilateral atherosclerosis with no significant stenosis. Continue aspirin and statin medication. (5) Primary hypertension Assessment & Plan: Her blood pressures have improved during this hospitalization. (6) Mixed hyperlipidemia Assessment & Plan: She had no previous history of hyperlipidemia but in light of the stroke and carotid atherosclerosis, she should continue statin medication LAZ DIALLO DO Feb 25, 2021 06:20
[2021-02-25] MEDS: KCL 20 MEQ TAB (K-DUR) PO SCH (06:54)
[2021-02-25] MEDS: KCL 10 MEQ TAB (MICRO K) PO SCH (06:54)
[2021-02-25] MEDS: MULTIVIT W/MINERALS TAB (THERAGRAN M) PO SCH (06:54)
[2021-02-25 09:15] VITALS: BP 139/62
[2021-02-25] MEDS: CLOPIDOGREL 75 MG (PLAVIX) TABLET PO SCH (09:17)
[2021-02-25] MEDS: VITAMIN D3 25 MCG (1,000 UNITS) TABLET PO SCH (09:17)
[2021-02-25] MEDS: lisINopril 40 MG (PRINIVIL) TABLET PO SCH (09:17)
[2021-02-25] MEDS: ASPIRIN 81 MG CHEW (CHILDREN'S ASA) PO SCH (09:17)
[2021-02-25] MEDS: ASCORBIC ACID (VIT C) 500 MG TABLET PO SCH (09:17)
[2021-02-25] MEDS: SENNA W/DOCUSATE (SENOKOT S) TABLET PO SCH ×2 (09:20→21:10)
[2021-02-25] MEDS: polyethylene glycoL POWDER 17 GM (MIRALAX) PACK PO SCH ×2 (09:20→21:10)
[2021-02-25] MEDS: DOCUSATE SODIUM 100 MG (COLACE) CAP PO SCH ×2 (09:20→21:09)
--- NOTE | 2021-02-25 09:22 | Physical Therapy Daily Note ---
PT Daily Note-Current Subjective Pt in recliner upon arrival and agrees to tx. Pt has no c/o pain Mental Status Patient Orientation: Person, Place, Time, Situation Transfers SCALE: Activities may be completed with or without assistive devices. 5-Ntjozrhudc-pcmlhep completes the activity by him/herself with no assistance from a helper. 5-Set-up or Clean-up Assistance-helper sets up or cleans up; patient completes activity. [place] assists only prior to or following the activity. 4-Supervision or Touching Assistance-helper provides verbal cues and/or touching/steadying and/or contact guard assistance as patient completes activity. Assistance may be provided throughout the activity or intermittently. 3-Partial/Moderate Assistance-helper does LESS THAN HALF the effort. [place] lifts, holds or supports trunk or limbs, but provides less than half the effort. 2-Substantial/Maximal Assistance-helper does MORE THAN HALF the effort. [place] lifts or holds trunk or limbs and provides more than half the effort. 3-Jtbstxpkr-bgtmxr does ALL the effort. Patient does none of the effort to complete the activity. Or, the assistance of 2 or more helpers is required for the patient to complete the activity. If activity was not attempted, code reason: 7-Patient Refused. 9-Not Applicable-not attempted and the patient did not perform the activity before the current illness, exacerbation or injury. 10-Not Attempted due to Environmental Limitations-(lack of equipment, weather restraints, etc.). 88-Not Attempted due to Medical Conditions or Safety Concerns. Sit to Stand (QC): 6 Weight Bearing Full Weight Bearing Full Weight Bearing Gait Training Does the Patient Walk?: Yes Distance: 200' Walk 10 feet (QC): 6 Walk 50 ft with 2 Turns(QC): 6 Walk 150 ft (QC): 6 Gait Assistive Device: FWW Exercises NuStep Minutes: 15 NuStep Workload: 6 Treatments Pt request to use bathroom prior to amb and to get dressed. Pt able to doff/don clothes, use bathroom, and wash hands Indep. as pt is ad catherine in room. pt amb 200' on ARU and enters therapy gym. pt completes NuStep for 15 mins at WL of 6. Pt amb 100' back to room and was left with all needs met. Assessment Current Status: Good Progress Pt increasing strength, endurance, and mobility PT Short Term Goals Short Term Goals Time Frame: Feb 23, 2021 Roll Left & Right: 6 Sit to lyin Lying to sitting on side of be: 6 Sit to stand: 4 (SBA) Chair/qsp-gw-nxyab transfer: 4 (SBA) Walk 10 feet: 4 (SBA) Walk 50 feet with two turns: 4 (SBA) PT Shelter Goals Shelter Goals PT Industrial Service Technician Goals Time Frame: Mar 09, 2021 Roll Left & Right (QC): 6 Sit to Lying (QC): 6 Lying-Sitting on Side/Bed(QC): 6 Sit to Stand (QC): 6 Chair/Ikj-mg-Fekou Xfer(QC): 6 Toilet Transfer (QC): 6 Car Transfer (QC): 5 Does the Patient Walk: Yes Walk 10 feet (QC): 6 Walk 50ft with 2 Turns (QC): 6 Walk 150 ft (QC): 6 Walking 10ft on Uneven Surface: 6 1 Step (curb) (QC): 4 4 Steps (QC): 4 12 Steps (QC): 88 Picking up an Object (QC): 4 Wheel 50 feet with 2 turns (QC: 9 Wheel 150 feet: 9 PT Plan Treatment/Plan Treatment Plan: Continue Plan of Care Treatment Plan: Bed Mobility, Education, Functional Activity Bull, Functional Strength, Group Therapy, Gait, Safety, Therapeutic Exercise, Transfers Treatment Duration: Mar 09, 2021 Frequency: At least 5 of 7 days/Wk (IRF) Estimated Hrs Per Day: 1.5 hours per day Patient and/or Family Agrees t: Yes Time/GCodes Time In: 833 Time Out: 905 Total Billed Treatment Time: 32 Total Billed Treatment LELA Alex EX FIELDS, [place] CRITICAL POWER INSTALL TECHNICIAN Feb 25, 2021 09:22
[2021-02-25 19:58] VITALS: BP 113/70
[2021-02-25] MEDS: PSYLLIUM POWDER (METAMUCIL) 5.8 GM PACKET PO SCH (20:01)
[2021-02-25] MEDS: MELATONIN 10 MG TABLET PO SCH (21:09)
--- NOTE | 2021-02-26 05:58 | PM&R Progress Note ---
Subjective HPI/CC On Admission Date Seen by Provider: Feb 26, 2021 Time Seen by Provider: 06:00 Subjective/Events-last exam 02/26/2021: Sleeping currently Patient having no new issues per nurse Sleeping well at night We will check labs in the morning Discharge plan this week Doing well in independent room 02/25/2021: Patient doing well Has no concerns Discharge is planned next week Will have an appoint with Dr. Whitley and he will help her decide when driving is safe Check meds and labs 02/24/21: Pt sleeping right now Nurses have no concerns Checked meds and labs No falls 02/23/2021: Patient doing well and independent room No major issues Large BM this morning Check meds and labs 02/22/2021: Patient doing very well No pain is reported Participated in aggressive therapy We will work on tub bench in order to shower at home 02/21/21: Patient doing well No pain reported Checked meds and labs Improved transfers and use of right arm 02/20/21: Patient doing well Potassium 3.3 No pain reported Functioning well Participating well 02/19/21: No major issues Dramatically improved Right hand much improved Check meds and labs 02/18/2021: Patient doing really well Pain is controlled Discontinue the Hep-Lock since no more nausea or vomiting Check meds and labs Irritable bowel management 02/17/2021: Patient doing really well today Had a vomiting episode while in therapy so started gentle IV fluids and Zofran IV Blood pressure stable Headaches are daily Able to participate Review of Systems General: Fatigue, Malaise Neurological: Weakness Objective Exam Vital Signs Vital Signs Date Time Temp Pulse Resp B/P (MAP) Pulse Ox O2 Delivery O2 Flow Rate FiO2 02/26/21 09:10 Room Air 02/26/21 07:24 36.7 63 20 151/66 (94) 96 Capillary Refill : General Appearance: No Apparent Distress, WD/WN, Chronically ill HEENT: PERRL/EOMI, Normal ENT Inspection, Pharynx Normal Neck: Full Range of Motion, Normal Inspection, Non Tender, Supple, Carotid Bruit Respiratory: Chest Non Tender, Lungs Clear, Normal Breath Sounds, No Accessory Muscle Use, No Respiratory Distress Cardiovascular: Regular Rate, Rhythm, No Edema, No Gallop, No JVD, No Murmur, Normal Peripheral Pulses Gastrointestinal: Normal Bowel Sounds, No Organomegaly, No Pulsatile Mass, Non Tender, Soft Back: Normal Inspection, No CVA Tenderness, No Vertebral Tenderness Extremity: Normal Capillary Refill, Normal Inspection, Normal Range of Motion, Non Tender, No Calf Tenderness, No Pedal Edema Neurologic/Psychiatric: Alert, Oriented x3, Normal Mood/Affect, disability liaison officer II-XII Norm as Tested, Abnormal Gait, Motor Weakness (Right upper extremity weakness 3/5) Skin: Normal Color, Warm/Dry Lymphatic: No Adenopathy Results/Procedures Lab Patient resulted labs reviewed. FIM Transfers Therapy Code Descriptions/Definitions Functional [place] Measure: 0=Not Assessed/NA 4=Minimal Assistance 1=Total Assistance 5=Supervision or Setup 2=Maximal Assistance 6=Modified [place] 3=Moderate Assistance 7=Complete IndependenceSCALE: Activities may be completed with or without assistive devices. 5-Csgweqzbno-jiewgce completes the activity by him/herself with no assistance from a helper. 5-Set-up or Clean-up Assistance-helper sets up or cleans up; patient completes activity. [place] assists only prior to or following the activity. 4-Supervision or Touching Assistance-helper provides verbal cues and/or touching/steadying and/or contact guard assistance as patient completes activity. Assistance may be provided throughout the activity or intermittently. 3-Partial/Moderate Assistance-helper does LESS THAN HALF the effort. [place] lifts, holds or supports trunk or limbs, but provides less than half the effort. 2-Substantial/Maximal Assistance-helper does MORE THAN HALF the effort. [place] lifts or holds trunk or limbs and provides more than half the effort. 7-Mrttsxrxr-ortbjv does ALL the effort. Patient does none of the effort to complete the activity. Or, the assistance of 2 or more helpers is required for the patient to complete the activity. If activity was not attempted, code reason: 7-Patient Refused. 9-Not Applicable-not attempted and the patient did not perform the activity before the current illness, exacerbation or injury. 10-Not Attempted due to Environmental Limitations-(lack of equipment, weather restraints, etc.). 88-Not Attempted due to Medical Conditions or Safety Concerns. Roll Left to Right (QC): 6 Sit to Lying (QC): 6 Sit to Stand (QC): 6 Chair/Hgt-ci-Ehnno Xfer(QC): 4 Car Transfer (QC): 3 Gait Training Does the Patient Walk?: Yes Distance: 200' Walk 10 feet (QC): 6 Walk 50 ft with 2 Turns(QC): 6 Walk 150 ft (QC): 6 Walking 10ft/uneven surface-QC: 4 Gait Persons Needed: 0 Gait Assistive Device: FWW Wheelchair Training Does the Pt Use a Wheelchair?: No Distance: 120' Wheel 50 ft with 2 turns (QC): 4 Wheel 150 ft (QC): 88 Type of Wheelchair: N/A Stair Training #of Steps: 1 1 Step (curb) (QC): 4 4 Steps (QC): 88 12 Steps (QC): 88 Balance Picking up an Object (QC): 4 ADL-Treatment Eating (QC): 6 (IND per pt report.) Oral Hygiene (QC): 6 (Pt was IND) Shower/Bathe Self (QC): 6 (Pt was IND, wash/dry all parts) Upper Body Dressing (QC): 6 (Pt was IND.) Lower Body Dressing (QC): 6 (Pt was IND.) On/Off Footwear (QC): 6 (Pt was IND.) Toileting Hygiene (QC): 6 (Pt was IND.) Toilet Transfer (QC): 6 (Pt was IND.) Assessment/Plan Assessment and Plan Assess & Plan/Chief Complaint Assessment: VA with right-sided weakness Hypertension Hyperlipidemia Chronic kidney disease IBS Nausea and vomiting on 02/17/2021 requiring IV Zofran and IV fluids Plan: Rehab protocol Aggressive therapy Home meds Metamucil at night 02/17/2021: Nausea and vomiting management Monitor closely 02/18/2021: Discontinue IV Supportive care 02/19/21: Dramatic improvement Fall risk 02/20/21: Doing well Increased independence 02/21/21: Improved overall Await plan from team 02/22/2021: Supportive care Aggressive therapy 02/23/2021: Remain in independent room Discharge plan next week 02/24/21: DC Saturday? Continue treatment 02/25/2021: Supportive care Primary care provider establishment Dr. Bal 02/26/2021: Patient will be discharging this week Supportive care (1) Left middle cerebral artery stroke Assessment & Plan: This was initially thought to be due to atheroembolic disease from the carotid arteries that may have embolized. However, her invasive carotid angiogram did not show significant carotid stenosis. This does not exclude atheroembolic disease. However, this also raises a question of possible cardiac source of embolism. Once she recovers from the stroke and is discharged home, I will plan on a 30-day event monitor to screen for paroxysmal atrial fibrillation. I will then plan to see her in the office after the test is completed. My office will make these arrangements. In the interim, she should continue on aspirin, clopidogrel and statin medication. At this point in time, there do not appear to be any acute, active cardiac issues. As such, ca rdiology will sign off. Please call if you have other questions or concerns. (2) Pulmonary hypertension Assessment & Plan: Her previous echocardiogram showed pulmonary hypertension. Exact etiology unclear. She is a lifelong non-smoker although did have a significant secondhand exposure to cigarette smoking. She has no history of pulmonary disease. She does not have any pulmonary symptoms. I would suggest that we obtain a follow-up echocardiogram in 3-6 months. I do not see any indication for an extensive evaluation for secondary causes of pulmonary hypertension at this point in time. (3) Thoracic aortic aneurysm without rupture Assessment & Plan: This was an incidental finding on her echocardiogram at the outside facility. This is in a mild range. This will need to be followed longitudinally. (4) Atherosclerosis of both carotid arteries Assessment & Plan: As above, she was found to have bilateral atherosclerosis with no significant stenosis. Continue aspirin and statin medication. (5) Primary hypertension Assessment & Plan: Her blood pressures have improved during this hospital ization. (6) Mixed hyperlipidemia Assessment & Plan: She had no previous history of hyperlipidemia but in light of the stroke and carotid atherosclerosis, she should continue statin medication LAZ DIALLO DO Feb 26, 2021 05:58
[2021-02-26] MEDS: KCL 20 MEQ TAB (K-DUR) PO SCH (07:19)
[2021-02-26] MEDS: MULTIVIT W/MINERALS TAB (THERAGRAN M) PO SCH (07:19)
[2021-02-26] MEDS: KCL 10 MEQ TAB (MICRO K) PO SCH (07:19)
[2021-02-26 07:24] VITALS: BP 151/66
[2021-02-26] MEDS: ASCORBIC ACID (VIT C) 500 MG TABLET PO SCH (08:01)
[2021-02-26] MEDS: ASPIRIN 81 MG CHEW (CHILDREN'S ASA) PO SCH (08:01)
[2021-02-26] MEDS: CLOPIDOGREL 75 MG (PLAVIX) TABLET PO SCH (08:01)
[2021-02-26] MEDS: lisINopril 40 MG (PRINIVIL) TABLET PO SCH (08:01)
[2021-02-26] MEDS: VITAMIN D3 25 MCG (1,000 UNITS) TABLET PO SCH (08:01)
[2021-02-26] MEDS: SENNA W/DOCUSATE (SENOKOT S) TABLET PO SCH ×2 (08:12→20:31)
[2021-02-26] MEDS: polyethylene glycoL POWDER 17 GM (MIRALAX) PACK PO SCH ×2 (08:12→20:31)
[2021-02-26] MEDS: DOCUSATE SODIUM 100 MG (COLACE) CAP PO SCH ×2 (08:12→20:30)
[2021-02-26 19:00] VITALS: BP 145/67
[2021-02-26] MEDS: PSYLLIUM POWDER (METAMUCIL) 5.8 GM PACKET PO SCH (20:30)
[2021-02-26] MEDS: MELATONIN 10 MG TABLET PO SCH (20:31)
[2021-02-27 06:41] LABS: BASOPHILS % (AUTO) 0 % (0-10); EOSINOPHILS # (AUTO) 0.3 10^3/uL (0.0-0.3); EOSINOPHILS % (AUTO) 3 % (0-10); HEMATOCRIT 30 % (35-52); HEMOGLOBIN 9.7 g/dL (11.5-16.0); LYMPHOCYTES # (AUTO) 2.4 10^3/uL (1.0-4.0); LYMPHOCYTES % (AUTO) 23 % (12-44); MEAN CORPUSCULAR HEMOGLOBIN 31 pg (25-34); MEAN CORPUSCULAR HGB CONC 33 g/dL (32-36); MEAN CORPUSCULAR VOLUME 93 fL (80-99); MEAN PLATELET VOLUME 10.9 fL (9.0-12.2); MONOCYTES # (AUTO) 0.7 10^3/uL (0.0-1.0); MONOCYTES % (AUTO) 6 % (0-12); NEUTROPHILS # (AUTO) 6.7 10^3/uL (1.8-7.8); NEUTROPHILS % (AUTO) 67 % (42-75); PLATELET COUNT 217 10^3/uL (130-400); WHITE BLOOD COUNT 10.1 10^3/uL (4.3-11.0)
[2021-02-27 07:00] LABS: ALBUMIN 3.4 GM/DL (3.2-4.5); POTASSIUM 3.8 MMOL/L (3.6-5.0)
[2021-02-27 07:02] LABS: CALCIUM 9.2 MG/DL (8.5-10.1)
[2021-02-27 07:05] LABS: BILIRUBIN,TOTAL 0.6 MG/DL (0.1-1.0)
[2021-02-27 07:06] LABS: CREATININE SERUM 0.86 MG/DL (0.60-1.30)
[2021-02-27] MEDS: KCL 20 MEQ TAB (K-DUR) PO SCH (07:26)
[2021-02-27] MEDS: KCL 10 MEQ TAB (MICRO K) PO SCH (07:26)
[2021-02-27] MEDS: MULTIVIT W/MINERALS TAB (THERAGRAN M) PO SCH (07:26)
[2021-02-27 07:44] VITALS: BP 117/55
[2021-02-27 07:48] VITALS: BP 131/60
--- NOTE | 2021-02-27 08:56 | Occupational Ther Daily Note ---
OT Current Status-Daily Note Subjective Pt was seated in chair upon OT arrival. Pt agreed to tx session. Pt stated and showed OT her swelling in both feet. Mental Status/Objective Patient Orientation: Person, Place, Time, Situation ADL-Treatment Therapy Code Descriptions/Definitions Functional [place] Measure: 0=Not Assessed/NA 4=Minimal Assistance 1=Total Assistance 5=Supervision or Setup 2=Maximal Assistance 6=Modified [place] 3=Moderate Assistance 7=Complete IndependenceSCALE: Activities may be completed with or without assistive devices. 7-Yqsgtemqdq-sdcnizd completes the activity by him/herself with no assistance from a helper. 5-Set-up or Clean-up Assistance-helper sets up or cleans up; patient completes activity. [place] assists only prior to or following the activity. 4-Supervision or Touching Assistance-helper provides verbal cues and/or touching/steadying and/or contact guard assistance as patient completes activity. Assistance may be provided throughout the activity or intermittently. 3-Partial/Moderate Assistance-helper does LESS THAN HALF the effort. [place] lifts, holds or supports trunk or limbs, but provides less than half the effort. 2-Substantial/Maximal Assistance-helper does MORE THAN HALF the effort. [place] lifts or holds trunk or limbs and provides more than half the effort. 5-Ljcyvbtom-tluark does ALL the effort. Patient does none of the effort to complete the activity. Or, the assistance of 2 or more helpers is required for the patient to complete the activity. If activity was not attempted, code reason: 7-Patient Refused. 9-Not Applicable-not attempted and the patient did not perform the activity before the current illness, exacerbation or injury. 10-Not Attempted due to Environmental Limitations-(lack of equipment, weather restraints, etc.). 88-Not Attempted due to Medical Conditions or Safety Concerns. Eating (QC): 6 (IND per pt report. ) Oral Hygiene (QC): 6 (Pt performed IND.) Shower/Bathe Self (QC): 6 (Pt performed IND.) Upper Body Dressing (QC): 6 (Pt retrieved UBD garments and performed IND.) Lower Body Dressing (QC): 6 (Pt retrieved LBD garments and performed IND.) On/Off Footwear: 6 (Pt performed IND.) Toileting Hygiene (QC): 6 (Pt performed IND.) Toilet Transfer (QC): 6 (Pt performed IND.) Other Treatment Pt was seated in chair upon OT arrival. Pt agreed to tx session. Pt stated and showed OT her swelling in both feet. Pt transferred from sit to stand w/ FWW IND. Pt performed functional mobility to closet to retrieve UB/LB garments and to SC, IND. Pt performed shower, UBD, LBD, and footwear, see above QC's. Pt then transferred from sit to stand w/ FWW from SC to toilet IND. Pt performed toileting task, see QC's above. Pt transferred from sit to stand from toilet IND. Pt performed functional mobility to sink side for oral hygiene and grooming tasks IND. Pt performed oral hygiene and grooming while standing w/ FWW, see above QC. Pt performed functional mobility w/ FWW from sink side to therapy gym, IND. Pt participated while seated in chair in arm bike exercise w/ set up to support strength and endurance in ADL's at 25 watt resistance for 15 minutes, x6 rest breaks. Pt then participated in peg shanell activity, matching colored mini pegs around the board, to support FMC, finger manipulation, standing balance, crossing midline, cognitive decision making, sequencing, and endurance for ADL function, while standing w/ FWW IND. Pt then performed functional mobility w/ FWW, IND, from therapy gym to therapy kitchen area. Pt participated in cone activity, to support function and skill in ADL's, retrieving x6 cones, 1 round, to support dynamic standing balance, twisting, core strengthening, ROM in BUE's, and crossing midline. Pt performed functional mobility w/ FWW, IND, from therapy kitchen area to chair. Post tx session, pt was seated in chair, call light within reach, and all needs met. Education OT Patient Education: Energy conservation, Modified ADL techniques, Progress toward Goal/Update tx plan, Purpose of tx/functional activities Teaching Recipient: Patient Teaching Methods: Demonstration, Discussion Response to Teaching: Verbalize Understanding, Return Demonstration OT Short Term Goals Short Term Goals Time Frame: Mar 01, 2021 Toileting hygiene: 45 Shower/bathe self: 4 Upper body dressin Lower body dressin Putting on/taking off footwear: 4 OT Can Runner Goals Correction Goals Time Frame: Mar 10, 2021 Eating (QC): 6 (met) Oral Hygiene (QC): 6 (met) Toileting Hygiene (QC): 6 (met) Shower/Bathe Self (QC): 6 (met) Upper Body Dressing (QC): 6 (met) Lower Body Dressing (QC): 6 (met) On/Off Footwear (QC): 6 (met) Additional Goals: 1-Demonstrate ADL Tasks, 2-Verbalize Understanding, 3- ImproveStrength/Bull 1=Demonstrate adherence to instructed precautions during ADL tasks. 2=Patient will verbalize/demonstrate understanding of assistive devices/modifications for ADL. 3=Patient will improve strength/tolerance for activity to enable patient to perform ADL's. OT Education/Plan Problem List/Assessment Assessment: Decreased Activ Tolerance, Decreased UE Strength, Impaired I ADL's, Impaired Self-Care Skills Discharge Recommendations Plan/Recommendations: Continue POC Treatment Plan/Plan of Care Patient would benefit from OT for education, treatment and training to promote independence in ADL's, mobility, safety and/or upper extremity function for ADL's. Plan of Care: ADL Retraining, Functional Mobility, Group Exercise/Act as Ind, UE Funct Exercise/Act Treatment Duration: Mar 10, 2021 Frequency: At least 5 of 7 days/Wk (IRF) Estimated Hrs Per Day: 1.5 hours per day Agreement: Yes Rehab Potential: Fair Time/GCodes Start Time: 08:00 Stop Time: 09:30 Total Time Billed (hr/min): 90 Billed Treatment Time 1 Visit, ADL 3 (45'), EX (18'), FA 2 (27') MAGDIEL GREER OT Feb 27, 2021 08:56
[2021-02-27] MEDS: CLOPIDOGREL 75 MG (PLAVIX) TABLET PO SCH (09:18)
[2021-02-27] MEDS: lisINopril 40 MG (PRINIVIL) TABLET PO SCH (09:18)
[2021-02-27] MEDS: ASCORBIC ACID (VIT C) 500 MG TABLET PO SCH (09:19)
[2021-02-27] MEDS: VITAMIN D3 25 MCG (1,000 UNITS) TABLET PO SCH (09:19)
[2021-02-27] MEDS: ASPIRIN 81 MG CHEW (CHILDREN'S ASA) PO SCH (09:19)
[2021-02-27] MEDS: SENNA W/DOCUSATE (SENOKOT S) TABLET PO SCH ×2 (10:00→20:22)
[2021-02-27] MEDS: polyethylene glycoL POWDER 17 GM (MIRALAX) PACK PO SCH ×2 (10:00→20:22)
[2021-02-27] MEDS: DOCUSATE SODIUM 100 MG (COLACE) CAP PO SCH ×2 (10:00→20:22)
--- NOTE | 2021-02-27 10:29 | PM&R Progress Note ---
Subjective HPI/CC On Admission Date Seen by Provider: Feb 27, 2021 Time Seen by Provider: 10:30 Subjective/Events-last exam 02/27/2021: Pt doing well Bowels are moving DC plan for tomorrow Dr. Miller appointment on 03/22 and will get one with Dr. Whitley who took over Dr. Chung practice Feet are a bit swollen so I did order basilia hose Positional she is always in a chair with her feet down 02/26/2021: Sleeping currently Patient having no new issues per nurse Sleeping well at night We will check labs in the morning Discharge plan this week Doing well in independent room 02/25/2021: Patient doing well Has no concerns Discharge is planned next week Will have an appoint with Dr. Whitley and he will help her decide when driving is safe Check meds and labs 02/24/21: Pt sleeping right now Nurses have no concerns Checked meds and labs No falls 02/23/2021: Patient doing well and independent room No major issues Large BM this morning Check meds and labs 02/22/2021: Patient doing very well No pain is reported Participated in aggressive therapy We will work on tub bench in order to shower at home 02/21/21: Patient doing well No pain reported Checked meds and labs Improved transfers and use of right arm 02/20/21: Patient doing well Potassium 3.3 No pain reported Functioning well Participating well 02/19/21: No major issues Dramatically improved Right hand much improved Check meds and labs 02/18/2021: Patient doing really well Pain is controlled Discontinue the Hep-Lock since no more nausea or vomiting Check meds and labs Irritable bowel management 02/17/2021: Patient doing really well today Had a vomiting episode while in therapy so started gentle IV fluids and Zofran IV Blood pressure stable Headaches are daily Able to participate Review of Systems General: Fatigue, Malaise Neurological: Weakness, Incoordination Objective Exam Vital Signs Vital Signs Date Time Temp Pulse Resp B/P (MAP) Pulse Ox O2 Delivery O2 Flow Rate FiO2 02/27/21 20:30 Room Air 02/27/21 19:44 36.4 74 16 152/66 (94) 97 Capillary Refill : General Appearance: No Apparent Distress, WD/WN, Chronically ill HEENT: PERRL/EOMI, Normal ENT Inspection, Pharynx Normal Neck: Full Range of Motion, Normal Inspection, Non Tender, Supple, Carotid Bruit Respiratory: Chest Non Tender, Lungs Clear, Normal Breath Sounds, No Accessory Muscle Use, No Respiratory Distress Cardiovascular: Regular Rate, Rhythm, No Edema, No Gallop, No JVD, No Murmur, Normal Peripheral Pulses Gastrointestinal: Normal Bowel Sounds, No Organomegaly, No Pulsatile Mass, Non Tender, Soft Back: Normal Inspection, No CVA Tenderness, No Vertebral Tenderness Extremity: Normal Capillary Refill, Normal Inspection, Normal Range of Motion, Non Tender, No Calf Tenderness, No Pedal Edema Neurologic/Psychiatric: Alert, Oriented x3, Normal Mood/Affect, glove maker II-XII Norm as Tested, Abnormal Gait, Motor Weakness (Right upper extremity weakness 3/5) Skin: Normal Color, Warm/Dry Lymphatic: No Adenopathy Results/Procedures Lab Laboratory Tests 02/27/21 05:49 Patient resulted labs reviewed. FIM Transfers Therapy Code Descriptions/Definitions Functional [place] Measure: 0=Not Assessed/NA 4=Minimal Assistance 1=Total Assistance 5=Supervision or Setup 2=Maximal Assistance 6=Modified [place] 3=Moderate Assistance 7=Complete IndependenceSCALE: Activities may be completed with or without assistive devices. 7-Eammzrmoyz-yywjevb completes the activity by him/herself with no assistance from a helper. 5-Set-up or Clean-up Assistance-helper sets up or cleans up; patient completes activity. [place] assists only prior to or following the activity. 4-Supervision or Touching Assistance-helper provides verbal cues and/or touching/steadying and/or contact guard assistance as patient completes acti vity. Assistance may be provided throughout the activity or intermittently. 3-Partial/Moderate Assistance-helper does LESS THAN HALF the effort. [place] lifts, holds or supports trunk or limbs, but provides less than half the effort. 2-Substantial/Maximal Assistance-helper does MORE THAN HALF the effort. [place] lifts or holds trunk or limbs and provides more than half the effort. 1-Szyopmelc-nattua does ALL the effort. Patient does none of the effort to complete the activity. Or, the assistance of 2 or more helpers is required for the patient to complete the activity. If activity was not attempted, code reason: 7-Patient Refused. 9-Not Applicable-not attempted and the patient did not perform the activity before the current illness, exacerbation or injury. 10-Not Attempted due to Environmental Limitations-(lack of equipment, weather restraints, etc.). 88-Not Attempted due to Medical Conditions or Safety Concerns. Roll Left to Right (QC): 6 Sit to Lying (QC): 6 Sit to Stand (QC): 6 Chair/Ews-eq-Sszso Xfer(QC): 4 Car Transfer (QC): 3 Gait Training Does the Patient Walk?: Yes Distance: 200' Walk 10 feet (QC): 6 Walk 50 ft with 2 Turns(QC): 6 Walk 150 ft (QC): 6 Walking 10ft/uneven surface-QC: 4 Gait Persons Needed: 0 Gait Assistive Device: FWW Wheelchair Training Does the Pt Use a Wheelchair?: No Distance: 120' Wheel 50 ft with 2 turns (QC): 4 Wheel 150 ft (QC): 88 Type of Wheelchair: N/A Stair Training #of Steps: 1 1 Step (curb) (QC): 4 4 Steps (QC): 88 12 Steps (QC): 88 Balance Picking up an Object (QC): 4 ADL-Treatment Eating (QC): 6 (IND per pt report. ) Oral Hygiene (QC): 6 (Pt performed IND.) Shower/Bathe Self (QC): 6 (Pt performed IND.) Upper Body Dressing (QC): 6 (Pt retrieved UBD garments and performed IND.) Lower Body Dressing (QC): 6 (Pt retrieved LBD garments and performed IND.) On/Off Footwear (QC): 6 (Pt performed IND.) Toileting Hygiene (QC): 6 (Pt performed IND.) Toilet Transfer (QC): 6 (Pt performed IND.) Assessment/Plan Assessment and Plan Assess & Plan/Chief Complaint 10Assessment: VA with right-sided weakness Hypertension Hyperlipidemia Chronic kidney disease IBS Nausea and vomiting on 02/17/2021 requiring IV Zofran and IV fluids Plan: Rehab protocol Aggressive therapy Home meds Metamucil at night 02/17/2021: Nausea and vomiting management Monitor closely 02/18/2021: Discontinue IV Supportive care 02/19/21: Dramatic improvement Fall risk 02/20/21: Doing well Increased independence 02/21/21: Improved overall Await plan from team 02/22/2021: Supportive care Aggressive therapy 02/23/2021: Remain in independent room Discharge plan next week 02/24/21: DC Saturday? Continue treatment 02/25/2021: Supportive care Primary care provider establishment Dr. Bal 02/26/2021: Patient will be discharging this week Supportive care 02/27/2021: Discharge tomorrow (1) Left middle cerebral artery stroke Assessment & Plan: This was initially thought to be due to atheroembolic disease from the carotid arteries that may have embolized. However, her invasive carotid angiogram did not show significant carotid stenosis. This does not exclude atheroembolic disease. However, this also raises a question of possible cardiac source of embolism. Once she recovers from the stroke and is discharged home, I will plan on a 30-day event monitor to screen for paroxysmal atrial fibrillation. I will then plan to see her in the office after the test is completed. My office will make these arrangements. In the interim, she should continue on aspirin, clopidogrel and statin medication. At this point in time, there do not appear to be any acute, active cardiac issues. As such, cardiology will sign off. Please call if you have other questions or concerns. (2) Pulmonary hypertension Assessment & Plan: Her previous echocardiogram showed pulmonary hypertension. Exact etiology unclear. She is a lifelong non-smoker although did have a significant secondhand exposure to cigarette smoking. She has no history of pulmonary disease. She does not have any pulmonary symptoms. I would suggest that we obtain a follow-up echocardiogram in 3-6 months. I do not see any indication for an extensive evaluation for secondary causes of pulmonary hypertension at this point in time. (3) Thoracic aortic aneurysm without rupture Assessment & Plan: This was an incidental finding on her echocardiogram at the outside facility. This is in a mild range. This will need to be followed longitudinally. (4) Atherosclerosis of both carotid arteries Assessment & Plan: As above, she was found to have bilateral atherosclerosis with no significant stenosis. Continue aspirin and statin medication. (5) Primary hypertension Assessment & Plan: Her blood pressures have improved during this hospitalization. (6) Mixed hyperlipidemia Assessment & Plan: She had no previous history of hyperlipidemia but in light of the stroke and carotid atherosclerosis, she should continue statin medication LAZ DIALLO DO Feb 27, 2021 10:28
--- NOTE | 2021-02-27 11:14 | Physical Therapy Daily Note ---
PT Daily Note-Current Subjective Pt in recliner upon arrival and agrees to tx. Pt states she has no concerns about DC tomorrow Mental Status Patient Orientation: Person, Place, Time, Situation Transfers SCALE: Activities may be completed with or without assistive devices. 9-Xvmkzhugpf-rztllhy completes the activity by him/herself with no assistance from a helper. 5-Set-up or Clean-up Assistance-helper sets up or cleans up; patient completes activity. [place] assists only prior to or following the activity. 4-Supervision or Touching Assistance-helper provides verbal cues and/or touching/steadying and/or contact guard assistance as patient completes activi ty. Assistance may be provided throughout the activity or intermittently. 3-Partial/Moderate Assistance-helper does LESS THAN HALF the effort. [place] lifts, holds or supports trunk or limbs, but provides less than half the effort. 2-Substantial/Maximal Assistance-helper does MORE THAN HALF the effort. [place] lifts or holds trunk or limbs and provides more than half the effort. 3-Iodlwyjlw-kywrmv does ALL the effort. Patient does none of the effort to complete the activity. Or, the assistance of 2 or more helpers is required for the patient to complete the activity. If activity was not attempted, code reason: 7-Patient Refused. 9-Not Applicable-not attempted and the patient did not perform the activity before the current illness, exacerbation or injury. 10-Not Attempted due to Environmental Limitations-(lack of equipment, weather restraints, etc.). 88-Not Attempted due to Medical Conditions or Safety Concerns. Roll Left & Right (QC): 6 Sit to Lying (QC): 6 Lying to Sitting/Side of Bed(Q: 6 Sit to Stand (QC): 6 Chair/Dsz-nq-Asmnq Xfer(QC): 6 Toilet Transfer (QC): 6 Weight Bearing Full Weight Bearing Full Weight Bearing Gait Training Does the Patient Walk?: Yes Distance: 300', 150' Walk 10 feet (QC): 5 Walk 50 ft with 2 Turns(QC): 5 Walk 150 ft (QC): 5 Walking 10ft/uneven surface-QC: 5 Gait Assistive Device: Cane Single Point Pt amb 300' and 150' w/ SPC and SBA. Pt slow, but steady with SPC and no gait deviations at this time. PT advises pt to use SPC for home amb and FWW for community amb for safety Wheelchair Training Does the Pt Use a Wheelchair?: No Stair Training Stair Training: Handrails/: 2 handrails #of Steps: 12 1 Step (curb) (QC): 5 4 Steps (QC): 5 12 Steps (QC): 5 Stairs: Pattern: Step to VC for sequencing Balance Picking up an Object (QC): 5 Exercises NuStep Minutes: 12 NuStep Workload: 7 Treatments Pt in recliner and transfers to bed to complete bed mobility. Pt then amb to car for car TF, pt also practiced folding/unfolding FWW and putting into car. Pt then amb 300' w/ SPC and enters therapy gym. Pt completes stair training w/ 2 hand rails SBA, amb over uneven surface 10', and picks a pen up from floor SBA. Pt then request to practice curb step, pt completes x2 using SPC to A step up/down. Pt completes curb step SBA. Pt then completes NuStep for 12 mins WL 7. Pt amb 150' w/ SPC back to room and was left with all needs met. Assessment Current Status: Good Progress Pt Daryn/SBA for all transfers/mobility. Pt to use SPC for home amb and FWW for community amb PT Short Term Goals Short Term Goals Time Frame: Feb 23, 2021 Roll Left & Right: 6 Sit to lyin Lying to sitting on side of be: 6 Sit to stand: 4 (SBA) Chair/wcx-qz-fchmx transfer: 4 (SBA) Walk 10 feet: 4 (SBA) Walk 50 feet with two turns: 4 (SBA) PT Twisting Frame Fixer Goals Twisting Frame Fixer Goals PT Nursing Home Goals Time Frame: Mar 09, 2021 Roll Left & Right (QC): 6 Sit to Lying (QC): 6 Lying-Sitting on Side/Bed(QC): 6 Sit to Stand (QC): 6 Chair/Vtu-pf-Tqssg Xfer(QC): 6 Toilet Transfer (QC): 6 Car Transfer (QC): 5 Does the Patient Walk: Yes Walk 10 feet (QC): 6 Walk 50ft with 2 Turns (QC): 6 Walk 150 ft (QC): 6 Walking 10ft on Uneven Surface: 6 1 Step (curb) (QC): 4 4 Steps (QC): 4 12 Steps (QC): 88 Picking up an Object (QC): 4 Wheel 50 feet with 2 turns (QC: 9 Wheel 150 feet: 9 PT Plan Treatment/Plan Treatment Plan: Continue Plan of Care Treatment Plan: Bed Mobility, Education, Functional Activity Bull, Functional Strength, Group Therapy, Gait, Safety, Therapeutic Exercise, Transfers Treatment Duration: Mar 09, 2021 Frequency: At least 5 of 7 days/Wk (IRF) Estimated Hrs Per Day: 1.5 hours per day Patient and/or Family Agrees t: Yes Time/GCodes Time In: 1015 Time Out: 1115 Total Billed Treatment Time: 60 Total Billed Treatment 1, FA x2, GT, EX LY,ELAINA TUG MASTER Feb 27, 2021 11:14
--- NOTE | 2021-02-27 13:33 | Physical Therapy Daily Note ---
PT Daily Note-Current Subjective Pt in recliner upon arrival and agrees to tx. Pt has no c/o pain Mental Status Patient Orientation: Person, Place, Time, Situation Transfers SCALE: Activities may be completed with or without assistive devices. 6-Zcrjnzedba-yjjuuze completes the activity by him/herself with no assistance from a helper. 5-Set-up or Clean-up Assistance-helper sets up or cleans up; patient completes activity. [place] assists only prior to or following the activity. 4-Supervision or Touching Assistance-helper provides verbal cues and/or touching/steadying and/or contact guard assistance as patient completes activity. Assistance may be provided throughout the activity or intermittently. 3-Partial/Moderate Assistance-helper does LESS THAN HALF the effort. [place] lifts, holds or supports trunk or limbs, but provides less than half the effort. 2-Substantial/Maximal Assistance-helper does MORE THAN HALF the effort. [place] lifts or holds trunk or limbs and provides more than half the effort. 7-Vzcbgdukg-yifayc does ALL the effort. Patient does none of the effort to complete the activity. Or, the assistance of 2 or more helpers is required for the patient to complete the activity. If activity was not attempted, code reason: 7-Patient Refused. 9-Not Applicable-not attempted and the patient did not perform the activity before the current illness, exacerbation or injury. 10-Not Attempted due to Environmental Limitations-(lack of equipment, weather restraints, etc.). 88-Not Attempted due to Medical Conditions or Safety Concerns. Weight Bearing Full Weight Bearing Full Weight Bearing Gait Training Does the Patient Walk?: Yes Distance: 200', 150' Walk 10 feet (QC): 5 Walk 50 ft with 2 Turns(QC): 5 Walk 150 ft (QC): 5 Gait Assistive Device: Cane Single Point Slow but steady gait. No deviations noted. Advise pt to use FWW for community amb and SPC for house amb Treatments Pt in recliner and amb 200' to therapy gym. In // bars, pt holds static stance on Air Ex 30 secs x3 with slight LOB but was self corrected. Pt then completes dynamic standing balance activity on hard, level surface. Pt reached in all planes w/ B UE and SBA. Pt had no LOB during dynamic balance activity. Pt then amb back to room and was left with all needs met. Assessment Current Status: Good Progress Pt increasing strength, endurance, balance, and mobility. Pt advised to use SPC in home and FWW in community PT Short Term Goals Short Term Goals Time Frame: Feb 23, 2021 Roll Left & Right: 6 Sit to lyin Lying to sitting on side of be: 6 Sit to stand: 4 (SBA) Chair/woa-yc-iqzvd transfer: 4 (SBA) Walk 10 feet: 4 (SBA) Walk 50 feet with two turns: 4 (SBA) PT Mutuel Machine Operator Goals Mutuel Machine Operator Goals PT Mutuel Machine Operator Goals Time Frame: Mar 09, 2021 Roll Left & Right (QC): 6 Sit to Lying (QC): 6 Lying-Sitting on Side/Bed(QC): 6 Sit to Stand (QC): 6 Chair/Tdx-mu-Utond Xfer(QC): 6 Toilet Transfer (QC): 6 Car Transfer (QC): 5 Does the Patient Walk: Yes Walk 10 feet (QC): 6 Walk 50ft with 2 Turns (QC): 6 Walk 150 ft (QC): 6 Walking 10ft on Uneven Surface: 6 1 Step (curb) (QC): 4 4 Steps (QC): 4 12 Steps (QC): 88 Picking up an Object (QC): 4 Wheel 50 feet with 2 turns (QC: 9 Wheel 150 feet: 9 PT Plan Treatment/Plan Treatment Plan: Continue Plan of Care Treatment Plan: Bed Mobility, Education, Functional Activity Bull, Functional Strength, Group Therapy, Gait, Safety, Therapeutic Exercise, Transfers Treatment Duration: Mar 09, 2021 Frequency: At least 5 of 7 days/Wk (IRF) Estimated Hrs Per Day: 1.5 hours per day Patient and/or Family Agrees t: Yes Time/GCodes Time In: 1300 Time Out: 1330 Total Billed Treatment Time: 30 Total Billed Treatment 1, NM, GT ELAINA LY RESIDENT CAREGIVER Feb 27, 2021 13:33
[2021-02-27 19:44] VITALS: BP 152/66
[2021-02-27] MEDS: PSYLLIUM POWDER (METAMUCIL) 5.8 GM PACKET PO SCH (20:20)
[2021-02-27] MEDS: MELATONIN 10 MG TABLET PO SCH (20:20)
[2021-02-28] MEDS ORDERED: CARV12.53 PO (05:15)
[2021-02-28] MEDS ORDERED: ASPI-1238 PO (05:15)
[2021-02-28] MEDS ORDERED: ATOR40TA PO (05:15)
[2021-02-28] MEDS ORDERED: HYDR25TA4 PO (05:15)
[2021-02-28] MEDS ORDERED: CLOP75TA28 PO (05:15)
--- NOTE | 2021-02-28 05:16 | D/C HH Face to Face Order ---
D/C Face to Face Orders Reconcile Patient Problems Problems Reviewed?: Yes Instructions for Patient Via [facility], Patient Instructions/FollowUp: Dr. Whitley as scheduled Physician to follow Patient: Starr Discharge Diet for Home: No Restrictions Patient Problems: CVA Patient Data-Allergies,Ht & Wt Patient Allergies: Coded Allergies: ciprofloxacin (Unverified Allergy, Unknown, 01/05/11) ciprofloxacin HCl (Unverified Allergy, Unknown, 01/05/11) Home Health Need/Face to Face Date of Face to Face: Feb 28, 2021 Clinical Findings: Generalized weakness and fatigue, Instability, Muscle weakness, Unsteady gait I have seen Pt jepz-kz-mnrk: Yes Discharged To: Home Diagnosis/Conditions: CVA Patient is Homebound due to: Danay fall risk due to instabilty, Muscle weakness Homebound Status Due to the above stated illness, injury or surgical procedure (medical con dition or diagnosis) and associated clinical findings, the patient is homebound because of his/her inability to leave home except with aid of a supportive device and/or person AND leaving the home requires a considerable and taxing effort or is medically contraindicated. Pt req the following assistanc: Walker Home Health Nursing Orders Home Health Services Order: Nursing Services, Physical Therapy-Evaluate & Treat, Other (Bath aide) Certify Stmt I certify that this patient is under my care and that I, a nurse practitioner or a physician; a health care assistant working with me, had a face to face encounter that - meets the physician face to face encounter requirements with this patient as dated. LAZ DIALLO DO Feb 28, 2021 05:16
--- NOTE | 2021-02-28 05:17 | Discharge Summary ---
Diagnosis/Chief Complaint Date of Admission Feb 16, 2021 at 14:15 Date of Discharge Discharge Date: Feb 28, 2021 Discharge Diagnosis Assessment: VA with right-sided weakness Hypertension Hyperlipidemia Chronic kidney disease IBS Nausea and vomiting on 02/17/2021 requiring IV Zofran and IV fluids Plan: Rehab protocol Aggressive therapy Home meds Metamucil at night 02/17/2021: Nausea and vomiting management Monitor closely 02/18/2021: Discontinue IV Supportive care 02/19/21: Dramatic improvement Fall risk 02/20/21: Doing well Increased independence 02/21/21: Improved overall Await plan from team 02/22/2021: Supportive care Aggressive therapy 02/23/2021: Remain in independent room Discharge plan next week 02/24/21: DC Saturday? Continue treatment 02/25/2021: Supportive care Primary care provider establishment Dr. Bal 02/26/2021: Patient will be discharging this week Supportive care 02/27/2021: Discharge tomorrow (1) Left middle cerebral artery stroke Assessment & Plan: This was initially thought to be due to atheroembolic disease from the carotid arteries that may have embolized. However, her invasive carotid angiogram did not show significant carotid stenosis. This does not exclude atheroembolic disease. However, this also raises a question of possible cardiac source of embolism. Once she recovers from the stroke and is discharged home, I will plan on a 30-day event monitor to screen for paroxysmal atrial fibrillation. I will then plan to see her in the office after the test is completed. My office will make these arrangements. In the interim, she should continue on aspirin, clopidogrel and statin medication. At this point in time, there do not appear to be any acute, active cardiac issues. As such, cardiology will sign off. Please call if you have other questions or concerns. (2) Pulmonary hypertension Assessment & Plan: Her previous echocardiogram showed pulmonary hypertension. Exact etiology unclear. She is a lifelong non-smoker although did have a significant secondhand exposure to cigarette smoking. She has no history of pulmonary disease. She does not have any pulmonary symptoms. I would suggest that we obtain a follow-up echocardiogram in 3-6 months. I do not see any indication for an extensive evaluation for secondary causes of pulmonary hypertension at this point in time. (3) Thoracic aortic aneurysm without rupture Assessment & Plan: This was an incidental finding on her echocardiogram at the outside facility. This is in a mild range. This will need to be followed longitudinally. (4) Atherosclerosis of both carotid arteries Assessment & Plan: As above, she was found to have bilateral atherosclerosis with no significant stenosis. Continue aspirin and statin medication. (5) Primary hypertension Assessment & Plan: Her blood pressures have improved during this hospitalization. (6) Mixed hyperlipidemia Assessment & Plan: She had no previous history of hyperlipidemia but in light of the stroke and carotid atherosclerosis, she should continue statin medication LAZ DIALLO Feb 27, 2021 10:28 Discharge Summary Discharge Physical Examination Allergies: Coded Allergies: ciprofloxacin (Unverified Allergy, Unknown, 01/05/11) ciprofloxacin HCl (Unverified Allergy, Unknown, 01/05/11) Vitals & I&Os Vital Signs Date Time Temp Pulse Resp B/P (MAP) Pulse Ox O2 Delivery O2 Flow Rate FiO2 02/28/21 11:41 37.0 66 18 142/66 98 Room Air General Appearance: Alert, Oriented X3, Cooperative Respiratory: Clear to Auscultation Cardiovascular: Regular Rate Neuro: Normal Gait, Normal Speech, Strength at 5/5 X4 Ext Psych/Mental Status: Mental Status NL Hospital Course Was the Problem List Reviewed?: Yes Hospital course: Patient had an uneventful hospital course when she was admitted from following a CVA. Right-sided weakness was able to recover to minimal deficit with the use of aggressive therapy. Cardiology was consulted and patient was monitored closely in the meantime. Blood pressure remained stable. Labs remained stable. Bowel function returned back to normal. With the use of assistive devices she was able to increase independence in ADLs and be able to discharge to [facility] her previous apartment. Labs (last 24 hrs) Laboratory Tests 02/17/21 05:52: White Blood Count 9.9, Red Blood Count 3.49L, Hemoglobin 10.7L, Hematocrit 32L, Mean Corpuscular Volume 91, Mean Corpuscular Hemoglobin 31, Mean Corpuscular Hemoglobin Concent 34, Red Cell Distribution Width 12.4, Platelet Count 185, Mean Platelet Volume 10.6, Immature Granulocyte % (Auto) 0, Neutrophils (%) (Auto) 76H, Lymphocytes (%) (Auto) 17, Monocytes (%) (Auto) 5, Eosinophils (%) (Auto) 2, Basophils (%) (Auto) 0, Neutrophils # (Auto) 7.5, Lymphocytes # (Auto) 1.7, Monocytes # (Auto) 0.5, Eosinophils # (Auto) 0.2, Basophils # (Auto) 0.0, Immature Granulocyte # (Auto) 0.0, Sodium Level 137, Potassium Level 3.8, Chloride Level 102, Carbon Dioxide Level 23, Anion Gap 12, Blood Urea Nitrogen 15, Creatinine 0.87, Estimat Glomerular Filtration Rate 62, BUN/Creatinine Ratio 17, Glucose Level 111H, Calcium Level 8.9, Corrected Calcium 9.5, Total Bilirubin 0.7, Aspartate Amino Transf (AST/SGOT) 47H, Alanine Aminotransferase (ALT/SGPT) 30, Alkaline Phosphatase 42, Total Protein 6.2L, Albumin 3.2 02/20/21 05:15: White Blood Count 6.7, Red Blood Count 3.39L, Hemoglobin 10.4L, Hematocrit 31L, Mean Corpuscular Volume 91, Mean Corpuscular Hemoglobin 31, Mean Corpuscular Hemoglobin Concent 34, Red Cell Distribution Width 12.5, Platelet Count 211, Mean Platelet Volume 11.2, Immature Granulocyte % (Auto) 0, Neutrophils (%) (Auto) 50, Lymphocytes (%) (Auto) 37, Monocytes (%) (Auto) 9, Eosinophils (%) (Auto) 4, Basophils (%) (Auto) 0, Neutrophils # (Auto) 3.3, Lymphocytes # (Auto) 2.4, Monocytes # (Auto) 0.6, Eosinophils # (Auto) 0.3, Basophils # (Auto) 0.0, Immature Granulocyte # (Auto) 0.0, Sodium Level 135, Potassium Level 3.3L, Chloride Level 101, Carbon Dioxide Level 24, Anion Gap 10, Blood Urea Nitrogen 18, Creatinine 0.96, Estimat Glomerular Filtration Rate 55, BUN/Creatinine Ratio 19, Glucose Level 108H, Calcium Level 9.0, Corrected Calcium 9.6, Total Bilirubin 0.6, Aspartate Amino Transf (AST/SGOT) 32, Alanine Aminotransferase (ALT/SGPT) 29, Alkaline Phosphatase 43, Total Protein 6.0L, Albumin 3.3 02/27/21 05:49: White Blood Count 10.1, Red Blood Count 3.18L, Hemoglobin 9.7L, Hematocrit 30L, Mean Corpuscular Volume 93, Mean Corpuscular Hemoglobin 31, Mean Corpuscular Hemoglobin Concent 33, Red Cell Distribution Width 12.6, Platelet Count 217, Mean Platelet Volume 10.9, Immature Granulocyte % (Auto) 0, Neutrophils (%) (Auto) 67, Lymphocytes (%) (Auto) 23, Monocytes (%) (Auto) 6, Eosinophils (%) (Auto) 3, Basophils (%) (Auto) 0, Neutrophils # (Auto) 6.7, Lymphocytes # (Auto) 2.4, Monocytes # (Auto) 0.7, Eosinophils # (Auto) 0.3, Basophils # (Auto) 0.0, Immature Granulocyte # (Auto) 0.0, Sodium Level 135, Potassium Level 3.8, Chloride Level 102, Carbon Dioxide Level 24, Anion Gap 9, Blood Urea Nitrogen 19H, Creatinine 0.86, Estimat Glomerular Filtration Rate 63, BUN/Creatinine Ratio 22, Glucose Level 101, Calcium Level 9.2, Corrected Calcium 9.7, Total Bilirubin 0.6, Aspartate Amino Transf (AST/SGOT) 16, Alanine Aminotransferase (ALT/SGPT) 13, Alkaline Phosphatase 40, Total Protein 6.0L, Albumin 3.4 Pending Labs Laboratory Tests 02/17/21 05:52: White Blood Count 9.9, Red Blood Count 3.49, Hemoglobin 10.7, Hematocrit 32, Mean Corpuscular Volume 91, Mean Corpuscular Hemoglobin 31, Mean Corpuscular Hemoglobin Concent 34, Red Cell Distribution Width 12.4, Platelet Count 185, Me an Platelet Volume 10.6, Immature Granulocyte % (Auto) 0, Neutrophils (%) (Auto) 76, Lymphocytes (%) (Auto) 17, Monocytes (%) (Auto) 5, Eosinophils (%) (Auto) 2, Basophils (%) (Auto) 0, Neutrophils # (Auto) 7.5, Lymphocytes # (Auto) 1.7, Monocytes # (Auto) 0.5, Eosinophils # (Auto) 0.2, Basophils # (Auto) 0.0, Immature Granulocyte # (Auto) 0.0, Sodium Level 137, Potassium Level 3.8, Chloride Level 102, Carbon Dioxide Level 23, Anion Gap 12, Blood Urea Nitrogen 15, Creatinine 0.87, Estimat Glomerular Filtration Rate 62, BUN/Creatinine Ratio 17, Glucose Level 111, Calcium Level 8.9, Corrected Calcium 9.5, Total Bilirubin 0.7, Aspartate Amino Transf (AST/SGOT) 47, Alanine Aminotransferase (ALT/SGPT) 30, Alkaline Phosphatase 42, Total Protein 6.2, Albumin 3.2 02/20/21 05:15: White Blood Count 6.7, Red Blood Count 3.39, Hemoglobin 10.4, Hematocrit 31, Mean Corpuscular Volume 91, Mean Corpuscular Hemoglobin 31, Mean Corpuscular Hemoglobin Concent 34, Red Cell Distribution Width 12.5, Platelet Count 211, Mean Platelet Volume 11.2, Immature Granulocyte % (Auto) 0, Neutrophils (%) (Auto) 50, Lymphocytes (%) (Auto) 37, Monocytes (%) (Auto) 9, Eosinophils (%) (Auto) 4, Basophils (%) (Auto) 0, Neutrophils # (Auto) 3.3, Lymphocytes # (Auto) 2.4, Monocytes # (Auto) 0.6, Eosinophils # (Auto) 0.3, Basophils # (Auto) 0.0, Immature Granulocyte # (Auto) 0.0, Sodium Level 135, Potassium Level 3.3, Chloride Level 101, Carbon Dioxide Level 24, Anion Gap 10, Blood Urea Nitrogen 18, Creatinine 0.96, Estimat Glomerular Filtration Rate 55, BUN/Creatinine Ratio 19, Glucose Level 108, Calcium Level 9.0, Corrected Calcium 9.6, Total Bilirubin 0.6, Aspartate Amino Transf (AST/SGOT) 32, Alanine Aminotransferase (ALT/SGPT) 29, Alkaline Phosphatase 43, Total Protein 6.0, Albumin 3.3 02/27/21 05:49: White Blood Count 10.1, Red Blood Count 3.18, Hemoglobin 9.7, Hematocrit 30, Me an Corpuscular Volume 93, Mean Corpuscular Hemoglobin 31, Mean Corpuscular Hemoglobin Concent 33, Red Cell Distribution Width 12.6, Platelet Count 217, Mean Platelet Volume 10.9, Immature Granulocyte % (Auto) 0, Neutrophils (%) (Auto) 67, Lymphocytes (%) (Auto) 23, Monocytes (%) (Auto) 6, Eosinophils (%) (Auto) 3, Basophils (%) (Auto) 0, Neutrophils # (Auto) 6.7, Lymphocytes # (Auto) 2.4, Monocytes # (Auto) 0.7, Eosinophils # (Auto) 0.3, Basophils # (Auto) 0.0, Immature Granulocyte # (Auto) 0.0, Sodium Level 135, Potassium Level 3.8, Chloride Level 102, Carbon Dioxide Level 24, Anion Gap 9, Blood Urea Nitrogen 19, Creatinine 0.86, Estimat Glomerular Filtration Rate 63, BUN/Creatinine Ratio 22, Glucose Level 101, Calcium Level 9.2, Corrected Calcium 9.7, Total Bilirubin 0.6, Aspartate Amino Transf (AST/SGOT) 16, Alanine Aminotransferase (ALT/SGPT) 13, Alkaline Phosphatase 40, Total Protein 6.0, Albumin 3.4 Discharge Home Medications: Active Scripts Active Hydrochlorothiazide 25 Mg Tablet 50 Mg PO DAILY Aspirin EC (Aspirin) 81 Mg Tablet.dr 81 Mg PO DAILY Carvedilol 12.5 Mg Tablet 25 Mg PO BID Lipitor (Atorvastatin Calcium) 40 Mg Tablet 40 Mg PO HS Clopidogrel (Clopidogrel Bisulfate) 75 Mg Tablet 75 Mg PO DAILY Reported Multivitamin 1 Each Tablet 1 Each PO DAILY Potassium Chloride 20 Meq Tablet.er 20 Meq PO 1800 TAKES AFTER DINNER Melatonin 5 Mg Tablet 5 Mg PO HS PRN Loperamide (Loperamide HCl) 2 Mg Capsule 2-4 Mg PO Q6H PRN MDD 8 CAPS TAKE 2 CAPS AFTER INITAL LOOSE STOOL THEN 1 CAP AFTER EACH LOOOSE STOOL THEREAFTER Vitamin D3 (Cholecalciferol (Vitamin D3)) 25 Mcg Capsule 25 Mcg PO DAILY Benazepril HCl 40 Mg Tab 40 Mg PO DAILY Vitamin C (Ascorbate Calcium) 500 Mg Tablet 500 Mg PO DAILY Instructions to patient/family Please see electronic discharge instructions given to patient. Diagnosis/Problems Diagnosis/Problems (1) CVA (cerebral vascular accident) (2) Chronic kidney disease (3) Hypertension (4) Hyperlipidemia (5) IBS (irritable bowel syndrome) LAZ DIALLO DO Feb 28, 2021 05:17
[2021-02-28] MEDS: MULTIVIT W/MINERALS TAB (THERAGRAN M) PO SCH (07:19)
[2021-02-28] MEDS: KCL 20 MEQ TAB (K-DUR) PO SCH (07:19)
[2021-02-28] MEDS: KCL 10 MEQ TAB (MICRO K) PO SCH (07:19)
[2021-02-28 07:42] VITALS: BP 142/66
[2021-02-28] MEDS: ASPIRIN 81 MG CHEW (CHILDREN'S ASA) PO SCH (08:05)
[2021-02-28] MEDS: ASCORBIC ACID (VIT C) 500 MG TABLET PO SCH (08:05)
[2021-02-28] MEDS: VITAMIN D3 25 MCG (1,000 UNITS) TABLET PO SCH (08:05)
[2021-02-28] MEDS: CLOPIDOGREL 75 MG (PLAVIX) TABLET PO SCH (08:06)
[2021-02-28] MEDS: lisINopril 40 MG (PRINIVIL) TABLET PO SCH (08:06)
[2021-02-28] MEDS: polyethylene glycoL POWDER 17 GM (MIRALAX) PACK PO SCH (08:07)
[2021-02-28] MEDS: SENNA W/DOCUSATE (SENOKOT S) TABLET PO SCH (08:07)
[2021-02-28] MEDS: DOCUSATE SODIUM 100 MG (COLACE) CAP PO SCH (08:07)
--- NOTE | 2021-02-28 08:57 | Therapy Team Discharge Summary ---
Therapy Discharge Summary Discharge Recommendations Date of Discharge Occupational Therapy Pt admitted to ARU s/p CVA. At [facility], she was independent with ADLs and functional mobility, no AD/AE. Upon initial evaluation, pt required set up assistance with eating and oral care, CGA showering, set up upper body dressing, min A lower body dressing, SBA footwear and CGA toileting. OT Tx focused on increasing safety and independence with ADLs and functional mobility, and increasing BUE strength and activity tolerance. At discharge, pt was independent with all ADLs, meeting all LTGs. OT recommends tub transfer bench. Pt to discharge from facility on this date, d/c from OT. Decreased Activ Tolerance, Decreased UE Strength, Impaired I ADL's, Impaired Self-Care Skills PT Prison Goals Prison Goals PT Pharmacist Aide Goals Time Frame: Mar 09, 2021 Roll Left to Right (QC): 6 Sit to Lying (QC): 6 Lying-Sitting on Side/Bed(QC): 6 Sit to Stand (QC): 6 Chair/Dip-mi-Umwqt Xfer(QC): 6 Car Transfer (QC): 5 Does the Patient Walk: Yes Walk 10 feet (QC): 6 Walk 10ft-Uneven Surface(QC): 6 Walk 50ft with 2 Turns (QC): 6 Walk 150 ft (QC): 6 Wheel 50 feet with 2 turns (QC: 9 1 Step (curb) (QC): 4 4 Steps (QC): 4 12 Steps (QC): 88 Picking up an Object (QC): 4 OT Pharmacist Aide Goals Pharmacist Aide Goals Time Frame: Mar 10, 2021 Eating (QC): 6 (met) Oral Hygiene (QC): 6 (met) Shower/Bathe Self (QC): 6 (met) Upper Body Dressing (QC): 6 (met) Lower Body Dressing (QC): 6 (met) On/Off Footwear (QC): 6 (met) Toileting Hygiene (QC): 6 (met) Toilet/Commode Transfer (QC): 6 Additional Goals: 1-Demonstrate ADL Tasks, 2-Verbalize Understanding, 3- ImproveStrength/Bull 1=Demonstrate adherence to instructed precautions during ADL tasks. 2=Patient will verbalize/demonstrate understanding of assistive devices/modifications for ADL. 3=Patient will improve strength/tolerance for activity to enable patient to perform ADL's. CRUMPACKER,MAGDIEL OT Feb 28, 2021 08:57
[2021-02-28 11:41] VITALS: BP 142/66
--- NOTE | 2021-03-01 08:33 | Therapy Team Discharge Summary ---
Therapy Discharge Summary Discharge Recommendations Date of Discharge Feb 28, 2021 at 11:40 Therapy D/C Recommendations: Home w/ Family Support Occupational Therapy Decreased Activ Tolerance, Decreased UE Strength, Impaired I ADL's, Impaired Self-Care Skills PT Penitentiary Goals Penitentiary Goals PT Skin Drier Goals Time Frame: Mar 09, 2021 Roll Left to Right (QC): 6 Sit to Lying (QC): 6 Lying-Sitting on Side/Bed(QC): 6 Sit to Stand (QC): 6 Chair/Rnp-bx-[id number] Xfer(QC): 6 Car Transfer (QC): 5 Does the Patient Walk: Yes Walk 10 feet (QC): 6 Walk 10ft-Uneven Surface(QC): 6 Walk 50ft with 2 Turns (QC): 6 Walk 150 ft (QC): 6 Wheel 50 feet with 2 turns (QC: 9 1 Step (curb) (QC): 4 4 Steps (QC): 4 12 Steps (QC): 88 Picking up an Object (QC): 4 OT Skin Drier Goals Skin Drier Goals Time Frame: Mar 10, 2021 Eating (QC): 6 (met) Oral Hygiene (QC): 6 (met) Shower/Bathe Self (QC): 6 (met) Upper Body Dressing (QC): 6 (met) Lower Body Dressing (QC): 6 (met) On/Off Footwear (QC): 6 (met) Toileting Hygiene (QC): 6 (met) Toilet/Commode Transfer (QC): 6 Additional Goals: 1-Demonstrate ADL Tasks, 2-Verbalize Understanding, 3- ImproveStrength/Bull 1=Demonstrate adherence to instructed precautions during ADL tasks. 2=Patient will verbalize/demonstrate understanding of assistive devices/modifications for ADL. 3=Patient will improve strength/tolerance for activity to enable patient to perform ADL's. FIDELIA NEWSOME PT Mar 01, 2021 08:33
--- NOTE | 2021-03-01 08:35 | Therapy Team Discharge Summary ---
Therapy Discharge Summary Discharge Recommendations Date of Discharge Feb 28, 2021 at 11:40 Therapy D/C Recommendations: Home w/ Family Support Physical Therapy Treatments Pt in recliner and transfers to bed to complete bed mobility. Pt then amb to car for car TF, pt also practiced folding/unfolding FWW and putting into car. Pt then amb 300' w/ SPC and enters therapy gym. Pt completes stair training w/ 2 hand rails SBA, amb over uneven surface 10', and picks a pen up from floor SBA. Pt then request to practice curb step, pt completes x2 using SPC to A step up/down. Pt completes curb step SBA. Pt then completes NuStep for 12 mins WL 7. Pt amb 150' w/ SPC back to room and was left with all needs met. Assessment Current Status: Good Progress Pt Daryn/SBA for all transfers/mobility. Pt to use SPC for home amb and FWW for community amb Occupational Therapy Decreased Activ Tolerance, Decreased UE Strength, Impaired I ADL's, Impaired Self-Care Skills PT Patent Paralegal Goals Mcc Goals PT Patent Paralegal Goals Time Frame: Mar 09, 2021 Roll Left to Right (QC): 6 Sit to Lying (QC): 6 Lying-Sitting on Side/Bed(QC): 6 Sit to Stand (QC): 6 Chair/[id number]-ai-Tfsyv Xfer(QC): 6 Car Transfer (QC): 5 Does the Patient Walk: Yes Walk 10 feet (QC): 6 Walk 10ft-Uneven Surface(QC): 6 Walk 50ft with 2 Turns (QC): 6 Walk 150 ft (QC): 6 Wheel 50 feet with 2 turns (QC: 9 1 Step (curb) (QC): 4 4 Steps (QC): 4 12 Steps (QC): 88 Picking up an Object (QC): 4 OT Mcc Goals Mcc Goals Time Frame: Mar 10, 2021 Eating (QC): 6 (met) Oral Hygiene (QC): 6 (met) Shower/Bathe Self (QC): 6 (met) Upper Body Dressing (QC): 6 (met) Lower Body Dressing (QC): 6 (met) On/Off Footwear (QC): 6 (met) Toileting Hygiene (QC): 6 (met) Toilet/Commode Transfer (QC): 6 Additional Goals: 1-Demonstrate ADL Tasks, 2-Verbalize Understanding, 3- ImproveStrength/Bull 1=Demonstrate adherence to instructed precautions during ADL tasks. 2=Patient will verbalize/demonstrate understanding of assistive devices/modifications for ADL. 3=Patient will improve strength/tolerance for activity to enable patient to perform ADL's. FIDELIA NEWSOME PT Mar 01, 2021 08:35
== END 2021-02-28 11:40 | disposition home health service (06) | DRG 57 ==
PROVIDERS: ADMIT Internal Medicine; ATTEND Internal Medicine
DX: I69.351 Hemiplegia and hemiparesis following cerebral infarction affecting right dominant side (principal); E87.1 Hypo-osmolality and hyponatremia; I69.392 Facial weakness following cerebral infarction; I69.320 Aphasia following cerebral infarction; K58.0 Irritable bowel syndrome with diarrhea; I12.9 Hypertensive chronic kidney disease with stage 1 through stage 4 chronic kidney disease, or unspecified chronic kidney disease; N18.30 Chronic kidney disease, stage 3 unspecified; E78.2 Mixed hyperlipidemia; E78.00 Pure hypercholesterolemia, unspecified; I65.23 Occlusion and stenosis of bilateral carotid arteries; E87.6 Hypokalemia; D64.9 Anemia, unspecified; F32.A Depression, unspecified; M19.91 Primary osteoarthritis, unspecified site; I27.20 Pulmonary hypertension, unspecified; I71.2 Thoracic aortic aneurysm, without rupture; I08.1 Rheumatic disorders of both mitral and tricuspid valves; Z88.1 Allergy status to other antibiotic agents; Z79.82 Long term (current) use of aspirin
CPT/HCPCS: 36415; 80053; 85025

== ENCOUNTER → 2022-02-02 | Outpatient (RCR) | payer MEDICARE ==
[~2022-02-02] MED LIST changes: -ACETAMINOPHEN 500 MG TAB (TYLENOL) PO PRN; -ALPRAZolam 0.25 MG (XANAX) TAB PO PRN; +ASPI-1238 PO; +ATOR40TA PO; -BENA40TA5 PO; +BENA40TA84 PO; -BISACODYL 10 MG SUPP (DULCOLAX) PR PRN; -CALCIUM CARBONATE 500 MG (TUMS) TAB.CHEW PO PRN; -DOCUSATE SODIUM 100 MG (COLACE) CAP PO PRN; -FLEET ENEMA ADULT 1 EA BTL PR PRN; -LACTULOSE SYRUP 10GM/15ML (ENULOSE) 30ML UDC PO PRN; -LOPERAMIDE 2 MG (IMODIUM) TABLET PO PRN; -MELATONIN 3 MG TABLET PO PRN; -ONDANSETRON 4 MG (ZOFRAN) ORAL DISSOLVE TAB PO PRN; -diphenhydrAMINE 25 MG TAB (BENADRYL) PO PRN; -guaiFENesin/CODEINE (ROBITUSSIN AC) 10ML UDC PO PRN
== END | disposition home or self-care (01) ==
PROVIDERS: ATTEND Nurse Practitioner Family
DX: R53.1 Weakness (principal)

== ENCOUNTER → 2022-03-05 | Outpatient (RCR) | payer MEDICARE, MEDICAID | END | disposition home or self-care (01) | PROVIDERS: ATTEND Nurse Practitioner Family | DX: R53.1 Weakness (principal) ==

== ENCOUNTER 2022-04-02 14:25 | Outpatient (RCR) | payer MEDICARE, MEDICAID | END 2022-04-04 | disposition home or self-care (01) | PROVIDERS: ATTEND Nurse Practitioner Family | DX: R53.1 Weakness (principal); I10 Essential (primary) hypertension ==

== ENCOUNTER 2022-04-24 13:13 | Outpatient (RCR) | payer MEDICARE, MEDICAID | END 2022-04-24 16:44 | disposition home or self-care (01) | PROVIDERS: ATTEND Nurse Practitioner Family | DX: R53.1 Weakness (principal) ==

== ENCOUNTER 2023-03-04 12:53 | Outpatient (RCR) | payer MEDICARE, MEDICAID ==
[~2023-03-04 12:53] MED LIST changes: +POTA-330 PO; -POTA-51 PO
== END 2023-03-05 | disposition home or self-care (01) ==
PROVIDERS: ATTEND Family Medicine
DX: R53.81 Other malaise (principal)

== ENCOUNTER 2023-04-03 16:01 | Outpatient (RCR) | payer MEDICARE, MEDICAID | END 2023-04-04 | disposition home or self-care (01) | PROVIDERS: ATTEND Family Medicine | DX: R26.89 Other abnormalities of gait and mobility (principal) ==